=== PATIENT | male | born 1970 | race American Indian/Alaskan Native ===

== ENCOUNTER → 2016-11-10 | Outpatient (CLI) | payer MEDICAID ==
--- NOTE | 2016-11-10 10:45 | US ---
Sonography Limited to The Right Upper Quadrant of the Abdomen CLINICAL HISTORY: 46-year-old male with alcoholic cirrhosis. ICD 10 Diagnostic Code: K70.30. TECHNIQUE: A curvilinear 5 MHz transducer was used to sonographically evaluate the right upper quadra nt of the abdomen. Color Doppler was used. COMPARISON STUDY: Right upper quadrant abdominal sonography, dated November 26, 2014. FINDINGS: The pancreatic contour is normal. The abdominal aorta is normal in size and tapers normally . The visualized IVC is normal in caliber. The hepatic vein trifurcation is normal. The main portal v ein is patent. The liver is normal in size, measuring 15.30 cm along the right midaxillary line. The liver is notable for slightly coarsened echotexture with no discrete mass, and there is a slightly lo bulated contour consistent with the patient's prior history of cirrhosis. There is no intra or extrah epatic bile duct dilatation. The common bile duct measures 4.2 mm. The gallbladder is moderately dis tended, and there is no evidence of cholelithiasis, sludge, polyp, wall thickening, pericholecystic f luid, or sonographic Simms sign. The gallbladder wall thickness is 2.1 mm. The right kidney is ashley l in size, shape, and contour, with a normal renal cortical thickness, and no focal renal mass or hyd ronephrosis. It measures 11.9 x 5.9 x 5.3 cm. There is no ascites or right pleural effusion. IMPRESSION: 1. Coarsened heterogeneous hepatic echotexture with a mild contour lobulation, consistent with underl kailey cirrhosis. There is no focal hepatic mass, bile duct dilatation, or ascites. 2. Normal appearance of the gallbladder, with no cholecystitis or bile duct dilatation.
== END ==
LOC: FIMAGING 09:48
PROVIDERS: ATTEND Internal Medicine
DX: K70.30 Alcoholic cirrhosis of liver without ascites (principal)

== ENCOUNTER 2017-01-20 16:35 | Observation (INO) | payer MEDICAID ==
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
[2017-01-20] MEDS ORDERED: NS 1,000 ML IV ONE (17:01)
[2017-01-20] MEDS ORDERED: ONDANSETRON 4 MG/2 ML VIAL IVP ONE (17:05)
[2017-01-20 17:07] LABS: % IMMATURE GRANULYOCYTES 0.2 % (0.0-1.1); ABSOLUTE IMMATURE GRANULOCYTES 0.01 10^3/uL (0.00-0.10); ADD DIFF? NO; ADD MORPH? NO; ADD SCAN? NO; ATYPICAL LYMPHOCYTE FLAG 10 (0-99); FRAGMENT RBC FLAG 20 (0-99); HEMATOCRIT 37.4 % (40.0-51.0); HEMOGLOBIN 12.7 g/dL (13.7-17.5); LEFT SHIFT FLG 0 (0-99); LIPEMIA HEMOLYSIS FLAG 90 (0-99); MEAN CELL HEMOGLOBIN 28.1 pg (27.9-34.1); MEAN CELL VOLUME 82.7 fL (81.5-99.8); MEAN PLATELET VOLUME 10.7 fL (8.7-11.7); PLATELET CLUMPS FLAG 0 (0-99); PLATELET COUNT 111 10^3/uL (150-400); RED BLOOD CELL COUNT 4.52 10^6/uL (4.40-6.38); RED CELL DISTRIBUTION WIDTH 17.8 % (11.5-15.2)
[2017-01-20 17:17] LABS: INR 1.18 (0.83-1.16)
[2017-01-20 17:18] LABS: APTT 29.6 SEC (23.0-38.0)
[2017-01-20 17:29] LABS: ALANINE AMINOTRANSFERASE 39 IU/L (21-72); ALBUMIN 4.5 g/dL (3.5-5.0); ALKALINE PHOSPHATASE 168 IU/L (38-126); ANION GAP 20 mEq/L (8-16); ASPARTATE AMINOTRANSFERASE 97 IU/L (17-59); BILIRUBIN,TOTAL 1.7 mg/dL (0.1-1.4); BILIRUBIN-CONJUGATED 0.8 mg/dL (0.0-0.5); BILIRUBIN-UNCONJUGATED 0.9 mg/dL (0.0-1.1); CARBON DIOXIDE 22 mEq/l (22-31); CHLORIDE 103 mEq/L (97-110); CREATININE 0.9 mg/dL (0.7-1.3); GLOMERULAR FILTRATION RATE > 60; GLUCOSE 102 mg/dL (70-100); POTASSIUM 3.6 mEq/L (3.5-5.2); SODIUM 145 mEq/L (134-144)
[2017-01-20] MEDS ORDERED: IOPAMIDOL (ISOVUE-300) 100 ML BTL IV ONE (17:33)
[2017-01-20 17:55] LABS: ETHANOL SERUM 375 mg/dL (0-10)
[2017-01-20] MEDS ORDERED: ONDANSETRON 4 MG/2 ML VIAL IVP PRN (20:03)
[2017-01-20] MEDS ORDERED: BENZTROPINE MESYLATE 2 MG/2 ML INJ IM PRN (20:10)
[2017-01-20] MEDS ORDERED: diphenhydrAMINE 25 MG CAP PO PRN (20:10)
[2017-01-20] MEDS ORDERED: MAGNESIUM SULF 2 GM/WATER 50 ML IV ONE (20:10)
[2017-01-20] MEDS ORDERED: LORazepam 2 MG/ML INJ IVP PRN (20:10)
[2017-01-20] MEDS ORDERED: LORazepam 2 MG/ML INJ IVP ONE (20:10)
[2017-01-20] MEDS ORDERED: chlordiazePOXIDE 25 MG CAP PO ONE (20:10)
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
[2017-01-20] MEDS: LORazepam 2 MG/ML INJ IVP PRN ×2 (21:25→22:44)
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
[2017-01-20] MEDS: THIAMINE HCL 100 MG TAB PO SCH (22:06)
[2017-01-20] MEDS: MULTIVITAMINS 1 EACH TAB PO SCH (22:06)
[2017-01-20] MEDS: FOLIC ACID 1 MG TAB PO SCH (22:06)
[2017-01-20] MEDS ORDERED: oxyCODONE IR 5 MG TAB PO PRN (22:36)
[2017-01-20 22:42] LABS: BILIRUBIN,TOTAL 1.6 mg/dL (0.1-1.4); BILIRUBIN-CONJUGATED 0.8 mg/dL (0.0-0.5); BILIRUBIN-UNCONJUGATED 0.8 mg/dL (0.0-1.1); TOTAL PROTEIN 6.9 g/dL (6.3-8.2)
[2017-01-20] MEDS: LR 1,000 ML IV SCH (22:44)
[2017-01-20 22:45] LABS: INR 1.25 (0.83-1.16); PROTIME(PATIENT) 15.7 SEC (12.0-15.0)
[2017-01-20] MEDS ORDERED: PROTOCOL MAGNESIUM 1 DOSE IV PRN (23:28)
[2017-01-21] MEDS ORDERED: MAGNESIUM SULF 1 GM/DEXTROSE 100 ML BAG IV ONE
[2017-01-21] MEDS ORDERED: MAGNESIUM SULF 2 GM/WATER 50 ML BAG IV ONE (00:02)
[2017-01-21] MEDS: SPIRONOLACTONE 50 MG TAB PO SCH ×2 (00:06→08:13)
[2017-01-21] MEDS ORDERED: MAGNESIUM SULF 2 GM/WATER 50 ML IV ONE (00:26)
[2017-01-21 00:38] LABS: % IMMATURE GRANULYOCYTES 0.1 % (0.0-1.1); ABSOLUTE IMMATURE GRANULOCYTES 0.01 10^3/uL (0.00-0.10); ADD DIFF? NO; ADD MORPH? NO; ADD SCAN? NO; ATYPICAL LYMPHOCYTE FLAG 0 (0-99); FRAGMENT RBC FLAG 0 (0-99); HEMATOCRIT 33.2 % (40.0-51.0); LEFT SHIFT FLG 0 (0-99); LIPEMIA HEMOLYSIS FLAG 80 (0-99); MEAN CELL HEMOGLOBIN 27.8 pg (27.9-34.1); MEAN CELL HEMOGLOBIN CONCENTR. 33.1 g/dL (32.4-36.7); MEAN CELL VOLUME 83.8 fL (81.5-99.8); MEAN PLATELET VOLUME 11.1 fL (8.7-11.7); PLATELET CLUMPS FLAG 10 (0-99); PLATELET COUNT 97 10^3/uL (150-400); RED BLOOD CELL COUNT 3.96 10^6/uL (4.40-6.38); RED CELL DISTRIBUTION WIDTH 17.6 % (11.5-15.2)
[2017-01-21] MEDS: LORazepam 2 MG/ML INJ IVP PRN (02:13)
[2017-01-21 05:26] LABS: % IMMATURE GRANULYOCYTES 0.2 % (0.0-1.1); ABSOLUTE IMMATURE GRANULOCYTES 0.01 10^3/uL (0.00-0.10); ADD DIFF? NO; ADD MORPH? NO; ADD SCAN? NO; ATYPICAL LYMPHOCYTE FLAG 0 (0-99); FRAGMENT RBC FLAG 20 (0-99); HEMATOCRIT 33.2 % (40.0-51.0); HEMOGLOBIN 11.1 g/dL (13.7-17.5); LEFT SHIFT FLG 0 (0-99); LIPEMIA HEMOLYSIS FLAG 80 (0-99); MEAN CELL HEMOGLOBIN 27.6 pg (27.9-34.1); MEAN CELL HEMOGLOBIN CONCENTR. 33.4 g/dL (32.4-36.7); MEAN CELL VOLUME 82.6 fL (81.5-99.8); MEAN PLATELET VOLUME 10.1 fL (8.7-11.7); PLATELET CLUMPS FLAG 0 (0-99); PLATELET COUNT 96 10^3/uL (150-400); RED BLOOD CELL COUNT 4.02 10^6/uL (4.40-6.38); RED CELL DISTRIBUTION WIDTH 17.6 % (11.5-15.2)
[2017-01-21 05:38] LABS: AMYLASE 46 IU/L (30-110); ANION GAP 12 mEq/L (8-16); CALCIUM 7.9 mg/dL (8.5-10.4); CARBON DIOXIDE 26 mEq/l (22-31); CHLORIDE 107 mEq/L (97-110); CREATININE 0.9 mg/dL (0.7-1.3); ETHANOL SERUM 157 mg/dL (0-10); GLOMERULAR FILTRATION RATE > 60; GLUCOSE 76 mg/dL (70-100); MAGNESIUM 1.9 mg/dL (1.6-2.3); POTASSIUM 4.2 mEq/L (3.5-5.2); SODIUM 145 mEq/L (134-144)
[2017-01-21] MEDS: LR 1,000 ML IV SCH (06:19)
[2017-01-21] MEDS: MULTIVITAMINS 1 EACH TAB PO SCH (08:13)
[2017-01-21] MEDS: FOLIC ACID 1 MG TAB PO SCH (08:13)
[2017-01-21] MEDS: THIAMINE HCL 100 MG TAB PO SCH (08:13)
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
[2017-01-21] MEDS ORDERED: ENOXAPARIN 40 MG/0.4 ML SYR SC SCH (09:00)
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
[2017-01-21 09:35] LABS: PHENCYCLIDINE URINE BCH < 6 ng/ml (NEGATIVE); PHENCYCLIDINE URINE BCH NEGATIVE (NEGATIVE)
[2017-01-21 09:46] LABS: TETRAHYDROCANNABINOL URINE > 800 ng/mL (NEGATIVE)
[2017-01-21] MEDS: chlordiazePOXIDE 25 MG CAP PO PRN ×2 (11:04→16:40)
[2017-01-21 13:35] VITALS: RESP 18; TEMP 98
[2017-01-21] MEDS ORDERED: PALIPERIDONE 3 MG TAB.ER PO PRN (14:42)
[2017-01-21] MEDS ORDERED: NON-FORMULARY NEW DRUG (Fluoxetine Hcl [Fluoxetine Hcl] 40 MG) PO SCH (14:45)
[2017-01-21] MEDS ORDERED: PALIPERIDONE PALMITATE 234 MG/1.5 ML SYR IM SCH (15:00)
[2017-01-21] MEDS ORDERED: LEVOTHYROXINE 112 MCG TAB PO SCH (15:00)
[2017-01-21] MEDS ORDERED: BENZTROPINE MESYLATE 1 MG TAB PO SCH (15:00)
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
[2017-01-21 16:03] VITALS: BP 155/73; PULSE 104; O2SAT 98
[2017-01-21] MEDS ORDERED: AMOXICILLIN/CLAVULANATE POT 875/125 MG TAB PO SCH (21:00)
[2017-01-22] MEDS ORDERED: FLUoxetine 20 MG CAP PO SCH (09:00)
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
[2017-02-05] MEDS ORDERED: PALIPERIDONE PALMITATE 234 MG/1.5 ML SYR IM SCH (15:00)
== END 2017-01-21 16:56 | disposition home or self-care (01) ==
LOC: EDUNIT# → F2N 21:25
PROVIDERS: ADMIT Surgery; ATTEND Surgery
DX: S02.2XXA Fracture of nasal bones, initial encounter for closed fracture (principal); S02.81XA Fracture of other specified skull and facial bones, right side, initial encounter for closed fracture; Y04.8XXA Assault by other bodily force, initial encounter; F10.229 Alcohol dependence with intoxication, unspecified; Y90.8 Blood alcohol level of 240 mg/100 ml or more; K70.40 Alcoholic hepatic failure without coma; R33.9 Retention of urine, unspecified; F10.230 Alcohol dependence with withdrawal, uncomplicated; E03.9 Hypothyroidism, unspecified; M50.320 Other cervical disc degeneration, mid-cervical region, unspecified level; F43.10 Post-traumatic stress disorder, unspecified; F41.9 Anxiety disorder, unspecified; Z72.0 Tobacco use
CPT/HCPCS: 70450; 71260; 72125; 74177; 96361; 96374; 97161; 97165; 99285; G0378; 80307; G0480; J1650; J2060; J2405; J3475; Q9967

== ENCOUNTER 2017-02-03 13:47 | Emergency (ER) | payer MEDICAID ==
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
[2017-02-03 14:01] VITALS: RESP 16; TEMP 98.2
[2017-02-03 17:46] VITALS: BP 140/98; PULSE 101; O2SAT 96
== END 2017-02-03 17:48 | disposition home or self-care (01) ==
LOC: EDUNIT#
DX: F10.120 Alcohol abuse with intoxication, uncomplicated (principal); I10 Essential (primary) hypertension; F17.200 Nicotine dependence, unspecified, uncomplicated

== ENCOUNTER 2017-04-24 16:29 | Emergency (ER) | payer MEDICAID ==
[2017-04-24 16:34] VITALS: RESP 16
--- NOTE | 2017-04-24 16:45 | EDPHY ---
HPI/HX/ROS/PE/MDM Narrative: CHIEF COMPLAINT: Abdominal pain. HISTORY OF PRESENT ILLNESS: This patient is a 47 year old male complaining of abdominal pain worsening over the last week. He has history of liver cirrhosis and states that his current symptoms are similar to those he has experienced in the past. He states his liver is hurting. He endorses vomiting, diarrhea, chest pain, shortness of breath, subjective fever, and swelling in his legs, hands, and stomach. He states his urine has been very dark in color, describing it as resembling root beer. He does follow up with GI, and states he was last seen around three months ago. No chills, palpitations, headache, lightheadedness. REVIEW OF SYSTEMS: Aside from elements discussed in the HPI, a comprehensive 10-point review of systems was reviewed and is negative. PAST MEDICAL HISTORY: Liver cirrhosis secondary to alcoholism, Hepatitis A. Hypothyroidism (Levothyroxine), Kidney disease, Hypertension, Anxiety, PTSD, chronic right shoulder pain. Past medical records reviewed including admission and abdominal CT from . Levothyroxine, Prozac, Risperdal, Trazodone, Clonidine, Omeprazole, Ibuprofen SOCIAL HISTORY: Girlfriend and chemicals fermentation operator at bedside. Occasional cigarette use. PCP Renetta Coleman. GI Dr. Rowell. VITAL SIGNS: Reviewed by me GENERAL: Well-developed, seems tired. Resting comfortably in no respiratory distress. HEENT: Atraumatic. Eyes: Scleral icterus, no injection. Mouth: dry mucous membranes. No erythema or lesions. Neck: supple with no adenopathy. LUNGS: Clear to auscultation bilaterally, no wheezes, rhonchi or rales. CARDIAC: Regular rate and rhythm, no rubs, murmurs or gallops. ABDOMEN: Right upper, middle, and lower quadrant pain. No fluid wave. Soft, bowel sounds normal. BACK: Right CVA tenderness. EXTREMITIES: No trauma. No edema. Range of motion is normal throughout. NEURO: Alert and oriented, grossly nonfocal. SKIN: No spider hemangioma. Warm and dry, no rash. PSYCHIATRIC: Normal mentation, no agitation. Portions of this note were transcribed by a certified medical aide. I personally performed a history, physical exam, medical decision making, and confirmed accuracy of information the transcribed note. ED Course: This patient is a 47 year old male presenting with an acute exacerbation of his chronic liver cirrhosis. Physical exam reveals right upper, middle, and lower quadrant pain, and right CVA tenderness. No abdominal fluid wave. Scleral icterus. Plan for labs including CBC, BMP, PTPTT, Liver/Lipase, Ammonia. Plan for CT abdomen to assess for acute processes. Spoke with Dr. Angeles, radiologist. CT shows cirrhosis and fatty infiltrate of liver and distended gallbladder. No ascites or bowel obstruction. Plan for further labs including CPK and UA. Labs demonstrate some worsening of the patient's cirrhosis. Bilirubin is 3.5. No ascites. Feel patient is safe to be discharged with lactulose. On discussions with the patient he reports that he has taken this before and he does not like it and he wishes to be admitted to the hospital. I explained to him that the treatment in the hospital be lactulose. He reports significant anxiety. Patient received 1 mg p.o. of Ativan and is agreeable to begin taking lactulose. He will follow up with his primary care physician [facility]. Plan to discharge home in good condition with a prescription for lactulose. Return preclusions discussed. He has been instructed to follow up with his primary care physician this week for continued management of symptoms. The patient is comfortable with this plan. MDM: Differential diagnoses for the patient's symptom complex was considered including but not limited to cirrhosis, gallstone disease, pancreatitis, ascites , SBP, acute liver failure, hepatic encephalopathy. - Data Points Imaging Results: Imaging Impressions Abdomen/Pelvis CT 04/24/17 17:29 Impression: 1. No ascites or bowel obstruction. 2. Cirrhosis/fatty infiltration with mild increase in liver size since January 20 , but smaller than 2013. 3. Distended gallbladder. 4. Chronic bladder wall nodularity in the region of the urachus. Results discussed with Dr. Ann Cabezas. General information for patients regarding this examination can be found at [email or web address]. If you have questions or comments about this report, please contact me at (hospital) or [phone] (cell). Imaging: Discussed imaging studies w/ house calls nurse practitioner Radiologist Laboratory Results: Laboratory Results 04/24/17 16:43 04/24/17 16:43 04/24/17 04/24/17 04/24/17 18:40 16:43 16:43 WBC RBC Hgb Hct MCV MCH MCHC RDW Plt Count MPV Neut % (Auto) Lymph % (Auto) Millard % (Auto) Eos % (Auto) Baso % (Auto) Nucleat RBC Rel Count Absolute Neuts (auto) Absolute Lymphs (auto) Absolute Monos (auto) Absolute Eos (auto) Absolute Basos (auto) Absolute Nucleated RBC Immature Gran % Immature Gran # Platelet Estimate Polychromasia Hypochromasia Target Cells Elliptocytes Schistocytes PT INR APTT Sodium 145 mEq/L H mEq/L (134-144) Potassium 3.6 mEq/L mEq/L (3.5-5.2) Chloride 103 mEq/L mEq/L (97-110) Carbon Dioxide 22 mEq/l mEq/l (22-31) Anion Gap 20 mEq/L H mEq/L (8-16) BUN 4 mg/dL L mg/dL (7-23) Creatinine 1.0 mg/dL mg/dL (0.7-1.3) Estimated GFR > 60 Glucose 107 mg/dL H mg/dL (70-100) Calcium 9.4 mg/dL mg/dL (8.5-10.4) Total Bilirubin 3.5 mg/dL H mg/dL (0.1-1.4) Conjugated Bilirubin 2.0 mg/dL H mg/dL (0.0-0.5) Unconjugated Bilirubin 1.5 mg/dL H mg/dL (0.0-1.1) AST 263 IU/L H IU/L (17-59) ALT 89 IU/L H IU/L (21-72) Alkaline Phosphatase 306 IU/L H IU/L (38-126) Ammonia Creatine Kinase 472 IU/L H IU/L (0-224) CK-MB (CK-2) Fraction 1.46 ng/mL ng/mL (0-3.19) CK-MB (CK-2) % 0.3 % % (0.0-4.0) Creatine Kinase Interp NEGATIVE (NEGATIVE) Total Protein 8.8 g/dL H g/dL (6.3-8.2) Albumin 4.5 g/dL g/dL (3.5-5.0) Lipase 316.0 IU/L H IU/L (23-300) Urine Color YELLOW Urine Appearance CLEAR Urine pH 7.0 (5.0-7.5) Ur Specific [place] 1.006 (1.002-1.030) Urine Protein NEGATIVE (NEGATIVE) Urine Ketones NEGATIVE (NEGATIVE) Urine Blood 1+ H (NEGATIVE) Urine Nitrate NEGATIVE (NEGATIVE) Urine Bilirubin NEGATIVE (NEGATIVE) Urine Urobilinogen 4.0 EU H EU (0.2-1.0) Ur Leukocyte Esterase NEGATIVE (NEGATIVE) Urine RBC 1-3 /hpf /hpf (0-3) Urine WBC 1-3 /hpf /hpf (0-3) Ur Epithelial Cells NONE SEEN /lpf /lpf (NONE-1+) Urine Mucus TRACE /lpf /lpf (NONE-1+) Urine Glucose NEGATIVE (NEGATIVE) 04/24/17 04/24/17 04/24/17 16:43 16:43 16:43 WBC 8.68 10^3/uL 10^3/uL (3.80-9.50) RBC 4.35 10^6/uL L 10^6/uL (4.40-6.38) Hgb 12.1 g/dL L g/dL (13.7-17.5) Hct 35.9 % L % (40.0-51.0) MCV 82.5 fL fL (81.5-99.8) MCH 27.8 pg L pg (27.9-34.1) MCHC 33.7 g/dL g/dL (32.4-36.7) RDW 23.1 % H % (11.5-15.2) Plt Count 115 10^3/uL L 10^3/uL (150-400) MPV 10.9 fL fL (8.7-11.7) Neut % (Auto) 66.8 % % (39.3-74.2) Lymph % (Auto) 18.5 % % (15.0-45.0) Millard % (Auto) 13.2 % H % (4.5-13.0) Eos % (Auto) 0.6 % % (0.6-7.6) Baso % (Auto) 0.6 % % (0.3-1.7) Nucleat RBC Rel Count 0.0 % % (0.0-0.2) Absolute Neuts (auto) 5.79 10^3/uL 10^3/uL (1.70-6.50) Absolute Lymphs (auto) 1.61 10^3/uL 10^3/uL (1.00-3.00) Absolute Monos (auto) 1.15 10^3/uL H 10^3/uL (0.30-0.80) Absolute Eos (auto) 0.05 10^3/uL 10^3/uL (0.03-0.40) Absolute Basos (auto) 0.05 10^3/uL 10^3/uL (0.02-0.10) Absolute Nucleated RBC 0.00 10^3/uL 10^3/uL (0-0.01) Immature Gran % 0.3 % % (0.0-1.1) Immature Gran # 0.03 10^3/uL 10^3/uL (0.00-0.10) Platelet Estimate DECREASED L (ADEQ) Polychromasia 1+ H Hypochromasia 1+ H Target Cells 1+ H Elliptocytes 1+ H Schistocytes 1+ H PT 14.1 SEC SEC (12.0-15.0) INR 1.10 (0.83-1.16) APTT 29.9 SEC SEC (23.0-38.0) Sodium Potassium Chloride Carbon Dioxide Anion Gap BUN Creatinine Estimated GFR Glucose Calcium Total Bilirubin Conjugated Bilirubin Unconjugated Bilirubin AST ALT Alkaline Phosphatase Ammonia 33.0 uMOL/L H uMOL/L (9.0-30.0) Creatine Kinase CK-MB (CK-2) Fraction CK-MB (CK-2) % Creatine Kinase Interp Total Protein Albumin Lipase Urine Color Urine Appearance Urine pH Ur Specific [place] Urine Protein Urine Ketones Urine Blood Urine Nitrate Urine Bilirubin Urine Urobilinogen Ur Leukocyte Esterase Urine RBC Urine WBC Ur Epithelial Cells Urine Mucus Urine Glucose Medications Given: Discontinued Medications Sodium Chloride (Ns) 1,000 mls @ 0 mls/hr IV ONCE ONE; Wide Open PRN Reason: Protocol Stop: 04/24/17 16:58 Last Admin: 04/24/17 17:03 Dose: 1,000 mls Sodium Chloride (Ns) 1,000 mls @ 0 mls/hr IV ONCE ONE; Wide Open PRN Reason: Protocol Stop: 04/24/17 18:42 Last Admin: 04/24/17 18:51 Dose: 1,000 mls Lorazepam (Ativan) 1 mg PO EDNOW ONE Stop: 04/24/17 19:31 Last Admin: 04/24/17 19:33 Dose: 1 mg General Time Seen by Provider: 04/24/17 16:38 Initial Vital Signs: Initial Vital Signs Temperature (C) 36.7 C 04/24/17 16:30 Heart Rate 121 H 04/24/17 16:30 Respiratory Rate 16 04/24/17 16:30 Blood Pressure 152/109 H 04/24/17 16:30 O2 Sat (%) 91 L 04/24/17 16:30 O2 Delivery Mode Room Air O2 (L/minute) 2 Allergies/Adverse Reactions: No Known Allergies Allergy (Verified 09/19/16 09:48) Home Medications: Medication Instructions Recorded FLUoxetine HCL [Fluoxetine HCl] 40 mg PO DAILY 01/20/17 traZODone [traZODone 150MG (*)] 150 - 300 mg PO HS PRN 01/20/17 Amoxicillin/Clavulanate Pot 875 mg PO BID #0 tab 01/21/17 [Augmentin 875 MG TAB (*)] Benztropine Mesylate [Cogentin] 0.5 mg PO BID #0 tab 01/21/17 Ibuprofen 600 mg PO BID 01/21/17 Levothyroxine [Synthroid 112 mcg 112 mcg PO DAILY06 01/21/17 (*)] Paliperidone Palmitate [Invega 234 mg IM .QMONTH 01/21/17 Sustenna (*)] Paliperidone [Invega 3mg ER (*)] 9 mg PO DAILY PRN #0 tab.er 01/21/17 clonIDINE [Catapres (*)] 0.1 mg PO TID 01/21/17 oxyCODONE IR [Oxycodone Ir (*)] 5 mg PO Q4HRS PRN #45 tab 01/21/17 Lactulose 15 - 30 ml PO TID 20 Days 04/24/17 Departure - Departure Disposition: Home, Routine, Self-Care Clinical Impression: Cirrhosis of liver Qualifiers: Hepatic cirrhosis type: alcoholic cirrhosis Ascites presence: without ascites Qualified Code(s): K70.30 - Alcoholic cirrhosis of liver without ascites Abdominal pain Qualifiers: Abdominal location: right lower quadrant Qualified Code(s): R10.31 - Right lower quadrant pain Condition: Good Instructions: Lactulose (By mouth), Cirrhosis (ED) Additional Instructions: We are going to start a medication called lactulose. The dose is 15-30 mL. Please take 15 mL in the morning. You should have several bowel movements. If you do not, take another 15 mL. Each day you will take 15-30 mL depending on your response. Please follow up with your primary care physician by the end of this week for re -evaluation. Return to the emergency department if you develop fever, worsening pain or swelling despite this new medicine, vomiting, or vomiting blood. Referrals: Renetta Coleman PA [Primary Care Provider] - As per Instructions Prescriptions: Lactulose 15 - 30 ml PO TID 20 Days Report Scribed for: Ann Cabezas Report Scribed by: Chanelle Keller Date of Report: 04/24/17 Time of Report: 16:43
[2017-04-24] MEDS ORDERED: NS 1,000 ML IV ONE ×2 (16:57→18:41)
[2017-04-24 17:11] LABS: % IMMATURE GRANULYOCYTES 0.3 % (0.0-1.1); ABSOLUTE IMMATURE GRANULOCYTES 0.03 10^3/uL (0.00-0.10); ADD DIFF? NO; ADD MORPH? YES; ADD SCAN? NO; ATYPICAL LYMPHOCYTE FLAG 0 (0-99); FRAGMENT RBC FLAG 40 (0-99); HEMATOCRIT 35.9 % (40.0-51.0); HEMOGLOBIN 12.1 g/dL (13.7-17.5); LEFT SHIFT FLG 0 (0-99); LIPEMIA HEMOLYSIS FLAG 80 (0-99); MEAN CELL HEMOGLOBIN 27.8 pg (27.9-34.1); MEAN CELL HEMOGLOBIN CONCENTR. 33.7 g/dL (32.4-36.7); MEAN CELL VOLUME 82.5 fL (81.5-99.8); MEAN PLATELET VOLUME 10.9 fL (8.7-11.7); PLATELET CLUMPS FLAG 20 (0-99); PLATELET COUNT 115 10^3/uL (150-400); RED BLOOD CELL COUNT 4.35 10^6/uL (4.40-6.38)
[2017-04-24 17:13] LABS: ALANINE AMINOTRANSFERASE 89 IU/L (21-72); ALBUMIN 4.5 g/dL (3.5-5.0); ALKALINE PHOSPHATASE 306 IU/L (38-126); ANION GAP 20 mEq/L (8-16); ASPARTATE AMINOTRANSFERASE 263 IU/L (17-59); BILIRUBIN,TOTAL 3.5 mg/dL (0.1-1.4); BILIRUBIN-UNCONJUGATED 1.5 mg/dL (0.0-1.1); CALCIUM 9.4 mg/dL (8.5-10.4); CARBON DIOXIDE 22 mEq/l (22-31); CHLORIDE 103 mEq/L (97-110); GLOMERULAR FILTRATION RATE > 60; GLUCOSE 107 mg/dL (70-100); POTASSIUM 3.6 mEq/L (3.5-5.2); SODIUM 145 mEq/L (134-144); TOTAL PROTEIN 8.8 g/dL (6.3-8.2)
[2017-04-24 17:14] LABS: RED CELL DISTRIBUTION WIDTH 23.1 % (11.5-15.2)
[2017-04-24 17:21] LABS: INR 1.1 (0.83-1.16); PROTIME(PATIENT) 14.1 SEC (12.0-15.0)
[2017-04-24 17:22] LABS: APTT 29.9 SEC (23.0-38.0)
[2017-04-24 17:56] LABS: HYPOCHROMIA 1+; PLATELET ESTIMATE DECREASED (ADEQ); SCHISTOCYTES 1+; TARGET CELLS 1+
[2017-04-24 17:57] LABS: ELLIPTOCYTES 1+
[2017-04-24 17:58] LABS: POLYCHROMASIA 1+
[2017-04-24 19:09] LABS: COLOR YELLOW; LEUKOCYTE ESTERASE,URINE NEGATIVE (NEGATIVE); NITRITE,URINE NEGATIVE (NEGATIVE)
[2017-04-24 19:15] LABS: MUCUS TRACE /lpf (NONE-1+)
[2017-04-24 19:22] LABS: CK-MB INTERPRETATION NEGATIVE (NEGATIVE); CREATINE KINASE-MB FRACTION 1.46 ng/mL (0-3.19)
[2017-04-24] MEDS ORDERED: LORazepam 1 MG TAB PO ONE (19:30)
[2017-04-24 19:41] VITALS: BP 155/107; PULSE 109; TEMP 98.2; O2SAT 91
== END 2017-04-24 19:44 | disposition home or self-care (01) ==
DX: R10.31 Right lower quadrant pain (principal); K70.30 Alcoholic cirrhosis of liver without ascites; E86.9 Volume depletion, unspecified; I10 Essential (primary) hypertension; F17.210 Nicotine dependence, cigarettes, uncomplicated

== ENCOUNTER 2017-05-18 20:59 | Emergency (ER) | payer MEDICAID ==
--- NOTE | 2017-05-18 21:10 | EDPHY ---
H & P Time Seen by Provider: 05/18/17 20:59 HPI/ROS: CHIEF COMPLAINT: Alcohol intoxication, witnessed fall HISTORY OF PRESENT ILLNESS: 47-year-old male presents to the emergency department by ambulance after he had a witnessed fall at a homeless care home. The patient admits to drinking a large amount of alcohol today. Apparently he tripped going up the curb and fell. He did not lose consciousness. The patient admits to drinking alcohol today. Denies neck or back pain. Denies chest pain or difficulty breathing. He has chronic abdominal pain associated with cirrhosis. No vomiting. No other reported trauma. REVIEW OF SYSTEMS: Constitutional: No fever, no chills. Eyes: No double or blurry vision. ENT: No sore throat. Respiratory: No cough, no shortness of breath. Cardiac: No chest pain. Gastrointestinal: No abdominal pain, vomiting or diarrhea. Genitourinary: No dysuria. Musculoskeletal: No neck or back pain. Skin: Abrasions. No rashes. Neurological: No headache. Past Medical/Surgical History: Alcoholism, cirrhosis, hypertension, sleep apnea, hypothyroidism, kidney disease Social History: homeless Smoking Status: Current every day smoker Physical Exam: General Appearance: lethargic, no distress. Smells of alcohol. Eyes: Pupils equal and round. Extraocular motions are all intact. ENT: Mouth: Mucous membranes moist. Superficial abrasion anterior aspect of nose. No epistaxis. Respiratory: No wheezing, rhonchi, or rales, lungs are clear to auscultation. Cardiovascular: Regular rate and rhythm. Gastrointestinal: Abdomen is soft and nontender, no masses, no rebound or guarding, bowel sounds normal. Neurological: Alert and oriented x 3, cranial nerves II through XII grossly intact Skin: Nose abrasion as above. Superficial chin abrasion. Warm and dry, no rashes. Musculoskeletal: Nontender to palpate along the cervical, thoracic or lumbar spine. Neck is supple. Extremities: Full range of motion and no peripheral edema. Psychiatric: Patient is oriented X 3, there is no agitation. Constitutional: Initial Vital Signs Temperature (C) 36.6 C 05/18/17 21:10 Heart Rate 100 05/18/17 21:10 Respiratory Rate 16 05/18/17 21:10 Blood Pressure 125/84 H 05/18/17 21:10 O2 Sat (%) 92 05/18/17 21:10 O2 Delivery Mode Nasal Cannula O2 (L/minute) 3 Allergies/Adverse Reactions: No Known Allergies Allergy (Verified 05/18/17 21:09) Home Medications: Medication Instructions Recorded FLUoxetine HCL [Fluoxetine HCl] 40 mg PO DAILY 01/20/17 traZODone [traZODone 150MG (*)] 150 - 300 mg PO HS PRN 01/20/17 Amoxicillin/Clavulanate Pot 875 mg PO BID #0 tab 01/21/17 [Augmentin 875 MG TAB (*)] Benztropine Mesylate [Cogentin] 0.5 mg PO BID #0 tab 01/21/17 Ibuprofen 600 mg PO BID 01/21/17 Levothyroxine [Synthroid 112 mcg 112 mcg PO DAILY06 01/21/17 (*)] Paliperidone Palmitate [Invega 234 mg IM .QMONTH 01/21/17 Sustenna (*)] Paliperidone [Invega 3mg ER (*)] 9 mg PO DAILY PRN #0 tab.er 01/21/17 clonIDINE [Catapres (*)] 0.1 mg PO TID 01/21/17 oxyCODONE IR [Oxycodone Ir (*)] 5 mg PO Q4HRS PRN #45 tab 01/21/17 Lactulose 15 - 30 ml PO TID 20 Days 04/24/17 Medical Decision Making ED Course/Re-evaluation: 47-year-old male presents to the emergency department with alcohol intoxication. I do not think imaging of his head is necessary. He did have a superficial abrasion to the anterior aspect of his nose as well as an old abrasion to his chin. Patient had no other signs of trauma. He is mentating normally. He smells strongly of alcohol. ETOH breath of 266. At 11:50 p.m.: The patient was able to ambulate unassisted to the bathroom. He will be discharged to the [facility]. Differential Diagnosis: Altered mental status including but not limited to hypoglycemia, infectious process, electrolyte abnormality, head injury and intoxicants. Departure - Departure Disposition: Home, Routine, Self-Care Clinical Impression: Alcohol abuse, Abrasion, nose w/o infection Alcohol intoxication Qualifiers: Complication of substance-induced condition: uncomplicated Qualified Code(s): F10.920 - Alcohol use, unspecified with intoxication, uncomplicated Fall Qualifiers: Encounter type: initial encounter Qualified Code(s): W19.XXXA - Unspecified fall, initial encounter Condition: Good Instructions: Alcohol Intoxication (ED), Abrasion (ED), Acute Wounds (ED) Additional Instructions: You should not drink alcohol in excess. Referrals: [facility] [Outside] - As per Instructions
[2017-05-18 21:14] VITALS: RESP 16; TEMP 97.9
[2017-05-19 00:16] VITALS: BP 122/82; PULSE 90; O2SAT 93
== END 2017-05-19 00:14 | disposition home or self-care (01) ==
LOC: EDUNIT#
DX: S00.31XA Abrasion of nose, initial encounter (principal); F10.120 Alcohol abuse with intoxication, uncomplicated; I10 Essential (primary) hypertension; F17.200 Nicotine dependence, unspecified, uncomplicated; W01.0XXA Fall on same level from slipping, tripping and stumbling without subsequent striking against object, initial encounter

== ENCOUNTER 2017-05-26 21:27 | Emergency (ER) | payer MEDICAID ==
[2017-05-26 21:59] VITALS: PULSE 81; RESP 16; TEMP 97.9
--- NOTE | 2017-05-26 22:01 | EDPHY ---
H & P Stated Complaint: Fall-EtOH Time Seen by Provider: 05/26/17 21:55 HPI/ROS: CHIEF COMPLAINT: Intoxication and fall HISTORY OF PRESENT ILLNESS: Patient is a 47-year-old alcoholic man who is been drinking today and fell. He has a small laceration to his chin. He is somnolecent but arousable. He denies other injuries. He denies headache or neck pain. REVIEW OF SYSTEMS: Unable to obtain secondary to condition EXAM: GENERAL: Well-appearing, well-nourished and in no acute distress. HEAD: Atraumatic, normocephalic. EYES: Pupils equal round and reactive to light, extraocular movements intact, sclera anicteric, conjunctiva are normal. ENT: TMs normal, nares patent, oropharynx clear without exudates. Moist mucous membranes. No mandible tenderness, open and close his jaw without difficulty. NECK: Normal range of motion, supple without lymphadenopathy or JVD. LUNGS: Breath sounds clear to auscultation bilaterally and equal. No wheezes rales or rhonchi. HEART: Regular rate and rhythm without murmurs, rubs or gallops. ABDOMEN: Soft, nontender, normoactive bowel sounds. No guarding, no rebound. No masses appreciated. BACK: No CVA tenderness, no spinal tenderness, step-offs or deformities EXTREMITIES: Normal range of motion, no pitting or edema. No clubbing or cyanosis. NEUROLOGICAL: Cranial nerves II through XII grossly intact. Normal speech, normal gait. 5/5 strength, normal movement in all extremities, normal sensation PSYCH: Normal mood, normal affect. SKIN: 1 cm laceration to chin. Source: Patient Exam Limitations: No limitations - Personal History Current Tetanus Diphtheria and Acellular Pertussis (TDAP): Yes Tetanus Vaccine Date: 2014 - Medical/Surgical History Hx Asthma: No Hx Chronic Respiratory Disease: No Hx Diabetes: No Hx Cardiac Disease: No Hx Renal Disease: Yes Hx Cirrhosis: Yes Hx Alcoholism: Yes Hx HIV/AIDS: No Hx Splenectomy or Spleen Trauma: No Other PMH: anxiety, ptsd, htn, Liver failure, alcoholism, sleep apnea, hypothyroidism, kidney disease, R chronic shoulder pain, claustrophobia. - Family History Significant Family History: No pertinent family hx - Social History Smoking Status: Current every day smoker Alcohol Use: Heavy Drug Use: Marijuana Constitutional: Initial Vital Signs Temperature (C) 36.6 C 08/03/17 21:54 Heart Rate 81 05/26/17 21:54 Respiratory Rate 16 05/26/17 21:54 Blood Pressure 133/74 H 05/26/17 21:54 O2 Sat (%) 91 L 05/26/17 21:54 O2 Delivery Mode Room Air Allergies/Adverse Reactions: No Known Allergies Allergy (Verified 05/26/17 21:53) Home Medications: Medication Instructions Recorded FLUoxetine HCL [Fluoxetine HCl] 40 mg PO DAILY 01/20/17 traZODone [traZODone 150MG (*)] 150 - 300 mg PO HS PRN 01/20/17 Amoxicillin/Clavulanate Pot 875 mg PO BID #0 tab 01/21/17 [Augmentin 875 MG TAB (*)] Benztropine Mesylate [Cogentin] 0.5 mg PO BID #0 tab 01/21/17 Ibuprofen 600 mg PO BID 01/21/17 Levothyroxine [Synthroid 112 mcg 112 mcg PO DAILY06 01/21/17 (*)] Paliperidone Palmitate [Invega 234 mg IM .QMONTH 01/21/17 Sustenna (*)] Paliperidone [Invega 3mg ER (*)] 9 mg PO DAILY PRN #0 tab.er 01/21/17 clonIDINE [Catapres (*)] 0.1 mg PO TID 01/21/17 oxyCODONE IR [Oxycodone Ir (*)] 5 mg PO Q4HRS PRN #45 tab 01/21/17 Lactulose 15 - 30 ml PO TID 20 Days 04/24/17 Medical Decision Making - Diagnostics Imaging: Discussed imaging studies w/ manager highway Radiologist Procedures: Procedure: Laceration repair. Verbal consent was obtained from the patient. The 1 cm chin laceration was not anesthetize. The wound was irrigated copiously according to protocol, draped and explored to its base. It was approximately 1/2 cm deep. There were no deep structures involved. No tendon, nerve, or vascular injury was identified when explored. No foreign body was identified. The wound was repaired with 4.0 PDS, 2 sutures, interrupted. The wound repair was simple. The procedure was performed by myself. A dressing was then placed with sterile gauze and bacitracin. ED Course/Re-evaluation: 11:20 p.m. The patient is alert and talking. We discussed the CT results. His and he would like him to [facility] the [facility] with [facility]. I will discharge him at this time. Differential Diagnosis: Partial list of the Differential diagnosis considered include but were not limited to; intoxication, head injury, laceration, mandible fracture and although unlikely based on the history and physical exam, I also considered neck injury, infection, acute coronary disease, seizure. I discussed these differential diagnoses and the plan with the patient as well as the usual and expected course. The patient understands that the diagnosis is provisional and that in medicine we are not always correct and that further workup is often warranted. Usual and customary warnings were given. All of the patient's questions were answered. The patient was instructed to return to the emergency department should the symptoms at all worsen or return, otherwise to followup with the physician as we discussed. Departure - Departure Disposition: Home, Routine, Self-Care Clinical Impression: Alcohol abuse, Laceration Condition: Fair Instructions: Alcohol Intoxication (ED), Laceration (ED) Additional Instructions: Have your sutures removed in 10 days. You have 2 in you chin Referrals: Patient,NotPresent [Unknown] - As per Instructions [facility],. [Clinic] - As per Instructions
[2017-05-26] MEDS ORDERED: CHLORDIAZEPOXIDE 25MG PREPK#6 BTL TAKEHOME ONE (23:28)
[2017-05-27 00:05] VITALS: BP 146/74; O2SAT 92
== END 2017-05-27 00:05 | disposition home or self-care (01) ==
LOC: EDUNIT#
PROC: 0HQ1XZZ Repair Face Skin, External Approach (ICD-10-PCS; principal; 2017-05-26)
DX: S01.81XA Laceration without foreign body of other part of head, initial encounter (principal); F10.10 Alcohol abuse, uncomplicated; F17.200 Nicotine dependence, unspecified, uncomplicated; I10 Essential (primary) hypertension; W19.XXXA Unspecified fall, initial encounter

== ENCOUNTER 2017-06-08 11:53 | Emergency (ER) | payer MEDICAID ==
[2017-06-08 12:26] VITALS: BP 126/82; PULSE 92; RESP 16; TEMP 97.3; O2SAT 93
--- NOTE | 2017-06-08 13:21 | EDPHY ---
H & P Stated Complaint: Pt is drunk;says "I have cirrhosis" Time Seen by Provider: 06/08/17 13:14 HPI/ROS: CHIEF COMPLAINT: Alcohol intoxication HISTORY OF PRESENT ILLNESS: The patient presents to the ED with acute alcohol intoxication. The patient denies any history of trauma. The patient reports he has a chronic daily drinker. The patient denies any suicidal or homicidal ideation. Patient denies any acute medical complaints. He does report a history of cirrhosis secondary to his chronic alcohol consumption. The patient denies any history of fever, cough or congestion. REVIEW OF SYSTEMS: A comprehensive 10 point review of systems is otherwise negative aside from elements mentioned in the history of present illness. Source: Patient Exam Limitations: No limitations - Personal History Current Tetanus Diphtheria and Acellular Pertussis (TDAP): Yes Tetanus Vaccine Date: 2014 - Medical/Surgical History Hx Asthma: No Hx Chronic Respiratory Disease: No Hx Diabetes: No Hx Cardiac Disease: No Hx Renal Disease: Yes Hx Cirrhosis: Yes Hx Alcoholism: Yes Hx HIV/AIDS: No Hx Splenectomy or Spleen Trauma: No Other PMH: anxiety, ptsd, htn, Liver failure, alcoholism, sleep apnea, hypothyroidism, kidney disease, R chronic shoulder pain, claustrophobia. - Social History Smoking Status: Current every day smoker - Physical Exam Exam: General Appearance: Alert, alcohol on breath, no acute distress Eyes: Pupils equal and round no pallor or injection ENT, Mouth: Mucous membranes moist Respiratory: There are no retractions, lungs are clear to auscultation Cardiovascular: Regular rate and rhythm Gastrointestinal: Protuberant, nontender Neurological: A&O, normal motor function, normal sensory exam, normal cranial nerves Skin: Warm and dry, no rashes Musculoskeletal: Neck is supple nontender Extremities: symmetrical, full range of motion Psychiatric: Patient is oriented X 3, there is no agitation Constitutional: Initial Vital Signs Temperature (C) 36.3 C 06/08/17 12:15 Heart Rate 92 06/08/17 12:15 Respiratory Rate 16 06/08/17 12:15 Blood Pressure 126/82 H 06/08/17 12:15 O2 Sat (%) 93 06/08/17 12:15 O2 Delivery Mode Room Air Allergies/Adverse Reactions: No Known Allergies Allergy (Verified 06/08/17 12:24) Home Medications: Medication Instructions Recorded FLUoxetine HCL [Fluoxetine HCl] 40 mg PO DAILY 01/20/17 traZODone [traZODone 150MG (*)] 150 - 300 mg PO HS PRN 01/20/17 Amoxicillin/Clavulanate Pot 875 mg PO BID #0 tab 01/21/17 [Augmentin 875 MG TAB (*)] Benztropine Mesylate [Cogentin] 0.5 mg PO BID #0 tab 01/21/17 Ibuprofen 600 mg PO BID 01/21/17 Levothyroxine [Synthroid 112 mcg 112 mcg PO DAILY06 01/21/17 (*)] Paliperidone Palmitate [Invega 234 mg IM .QMONTH 01/21/17 Sustenna (*)] Paliperidone [Invega 3mg ER (*)] 9 mg PO DAILY PRN #0 tab.er 01/21/17 clonIDINE [Catapres (*)] 0.1 mg PO TID 01/21/17 oxyCODONE IR [Oxycodone Ir (*)] 5 mg PO Q4HRS PRN #45 tab 01/21/17 Lactulose 15 - 30 ml PO TID 20 Days 04/24/17 Medical Decision Making ED Course/Re-evaluation: I reviewed the patient's past medical records. The patient presents to the ED only with alcohol intoxication. There is no evidence of obvious traumatic injury. The patient has stable vital signs. The patient is neurologically intact. I do feel the patient can be discharged to the [facility] for further [facility]. Differential Diagnosis: Differential diagnosis considered includes alcohol intoxication, metabolic abnormality, alcohol withdrawal syndrome Departure - Departure Disposition: Home, Routine, Self-Care Clinical Impression: Alcohol intoxication Condition: Good Instructions: Alcohol Intoxication (ED) Additional Instructions: 1. Please follow up with the [facility] for further assistance with your alcohol dependence. Continued use of heavy alcohol puts you at risk for serious illness and . Referrals: Renetta Coleman PA [Primary Care Provider] - As per Instructions
[2017-06-08] MEDS ORDERED: CHLORDIAZEPOXIDE 25MG PREPK#6 BTL TAKEHOME ONE (13:38)
== END 2017-06-08 14:12 | disposition home or self-care (01) ==
DX: F10.129 Alcohol abuse with intoxication, unspecified (principal); I10 Essential (primary) hypertension; F17.200 Nicotine dependence, unspecified, uncomplicated

== ENCOUNTER 2017-06-12 15:14 | Inpatient (IN) | payer MEDICAID ==
[2017-06-12] MEDS ORDERED: NS 1,000 ML IV ONE ×4 (15:20→18:00)
[2017-06-12 15:40] LABS: % IMMATURE GRANULYOCYTES 0.3 % (0.0-1.1); ABSOLUTE IMMATURE GRANULOCYTES 0.04 10^3/uL (0.00-0.10); ADD DIFF? NO; ADD MORPH? YES; ADD SCAN? NO; ATYPICAL LYMPHOCYTE FLAG 0 (0-99); FRAGMENT RBC FLAG 20 (0-99); HEMATOCRIT 32.2 % (40.0-51.0); HEMOGLOBIN 11.6 g/dL (13.7-17.5); LEFT SHIFT FLG 0 (0-99); LIPEMIA HEMOLYSIS FLAG 90 (0-99); MEAN CELL HEMOGLOBIN 31.2 pg (27.9-34.1); MEAN CELL VOLUME 86.6 fL (81.5-99.8); MEAN PLATELET VOLUME 10.4 fL (8.7-11.7); PLATELET CLUMPS FLAG 20 (0-99); PLATELET COUNT 68 10^3/uL (150-400); RED BLOOD CELL COUNT 3.72 10^6/uL (4.40-6.38)
--- NOTE | 2017-06-12 15:42 | EDPHY ---
H & P Stated Complaint: ETOH Source: Patient, EMS Exam Limitations: Intoxication - Personal History Tetanus Vaccine Date: 2014 - Medical/Surgical History Hx Asthma: No Hx Chronic Respiratory Disease: No Hx Diabetes: No Hx Cardiac Disease: No Hx Renal Disease: Yes Hx Cirrhosis: Yes Hx Alcoholism: Yes Hx HIV/AIDS: No Hx Splenectomy or Spleen Trauma: No Other PMH: anxiety, ptsd, htn, Liver failure, alcoholism, sleep apnea, hypothyroidism, kidney disease, R chronic shoulder pain, claustrophobia. - Social History Smoking Status: Current every day smoker Alcohol Use: Heavy Time Seen by Provider: 06/12/17 15:19 HPI/ROS: CHIEF COMPLAINT: ETOH HISTORY OF PRESENT ILLNESS: 47-year-old male presents to the emergency department by ambulance after bystanders called 911 finding him unresponsive. Patient was aroused. He reports he drink a half a gallon of alcohol today. Pt reports he hurts all over. He states "I took a tumble a few days ago". Patient is well known to the emergency department. He drinks daily. Patient states had a laceration sutured to his chin a couple weeks and he thinks it is infected. Patient reports he had a temperature of 102degrees 5 days ago. REVIEW OF SYSTEMS: Unable to obtain due to intoxication (Randee Callahan) - Physical Exam Exam: General Appearance: awake, smells of alcohol, follows commands. Head: left chin and mandible ecchymosis with swelling, hematoma under tongue Eyes: Pupils equal, round, reactive to light, EOMI, no trauma, no injection. Ears: Clear bilaterally, no perforation, no hemotympanum Nose: abrasion to nasal bridge, no septal hematoma Neck: The cervical spine is non-tender. ecchymosis to anterior neck Cardiovascular: Heart is tachycardic rate and rhythm without murmur. Good capillary refill all extremities. Chest: Atraumatic, equal bilateral breath sounds, diminished, rhonchi. Chest is non-tender to palpation. Gastrointestinal: Soft, diffuse tenderness, obese. No rebound, guarding, or peritoneal signs. Ecchymosis to left upper quadrant. Back:There is no thoracic or lumbar spine or paraspinal tenderness. Right flank hematoma Extremities: All extremities are non-tender to palpation without obvious deformity. There is full active range of motion of the joints. Left shoulder and axilla with ecchymosis. Bilateral knees with abrasions Neurological: The patient follows commands, no facial asymmetry, moves all extremities. Skin: multiple abrasions and bruises in multiple stages of healing to entire body. (Randee Callahan) Constitutional: Initial Vital Signs Temperature (C) 36.8 C 06/12/17 15:20 Heart Rate 123 H 06/12/17 15:20 Respiratory Rate 20 06/12/17 15:20 Blood Pressure 114/71 06/12/17 15:20 O2 Sat (%) 88 L 06/12/17 15:20 O2 Delivery Mode Nasal Cannula O2 (L/minute) 3 Allergies/Adverse Reactions: No Known Allergies Allergy (Verified 06/08/17 12:24) Home Medications: Medication Instructions Recorded FLUoxetine HCL [Fluoxetine HCl] 40 mg PO DAILY 01/20/17 traZODone [traZODone 150MG (*)] 150 - 300 mg PO HS PRN 01/20/17 Benztropine Mesylate [Cogentin] 0.5 mg PO BID #0 tab 01/21/17 Ibuprofen 600 mg PO BID PRN 01/21/17 Levothyroxine [Synthroid 112 mcg 112 mcg PO DAILY06 01/21/17 (*)] Paliperidone Palmitate [Invega 234 mg IM .QMONTH 01/21/17 Sustenna (*)] Paliperidone [Invega 3mg ER (*)] 9 mg PO DAILY PRN #0 tab.er 01/21/17 clonIDINE [Catapres (*)] 0.1 mg PO TID 01/21/17 oxyCODONE IR [Oxycodone Ir (*)] 5 mg PO Q4HRS PRN #45 tab 01/21/17 Medical Decision Making - Diagnostics Imaging Results: Imaging Impressions Abdomen CT 06/12/17 15:38 Impression: 1. Cirrhosis, with splenic varices. 2. No splenomegaly or ascites. 3. No evidence of intraabdominal or pelvic hematomas or organ laceration. 4. Right posterolateral back and deep subcutaneous fat small hematoma and edema. Findings and recommendations discussed with Emergency Department, Randee Callahan, N.P., at 1635 hours, on June 12, 2017. Final report concurs with initial preliminary interpretation. Cervical Spine CT 06/12/17 15:38 Impression: 1. No definite fracture. 2. C3-C4 central disk herniation resulting in moderate central canal stenosis, old. 3. Moderate degenerative disk disease at C5-C6 and C6-C7, with facet arthropathy, resulting in mild to moderate central canal stenosis and moderate to severe bilateral neural foraminal stenosis. 4. If there is persistent pain or neurological deficit, recommend MR cervical spine and consider flexion and extension views, if clinically indicated. Findings and recommendations discussed with Emergency Department Randee Callahan NOscarP., at 1635 hours, on June 12, 2017. Final report concurs with initial preliminary interpretation. Chest CT 06/12/17 15:38 Impression: 1. Coronary atherosclerosis. 2. No acute pulmonary disease. 3. No pneumothorax, pulmonary contusion, pleural effusion, or definite rib fracture. Findings and recommendations discussed with Emergency Department, Randee Callahan NOscarP., at 1635 hours, on June 12, 2017. Final report concurs with initial preliminary interpretation. Head CT 06/12/17 15:38 Impression: 1. Old nasal bone fracture. 2. Mild cerebral atrophy. 3. No epidural or subdural hematoma. 4. No acute skull fracture. 5. Microvascular ischemic gliosis versus postinfectious/postinflammatory white matter sequela bilateral frontal lobes. Findings and recommendations discussed with Emergency Department Randee Callahan NCindy., at 1641 hours, on June 12, 2017. Final report concurs with initial preliminary interpretation. Face CT 06/12/17 16:45 Impression: 1. Comminuted nondisplaced fractures of the left side of the body of the mandible from the midline laterally. 2. Left perimandibular edema, probably posttraumatic edema/diffuse hematoma versus phlegmon. 3. However, no drainable abscess. 4. Old nasal bone fractures. 5. No orbital wall or sinus wall acute fracture. Findings and recommendations discussed with Emergency Department, Randee Callahan N.P., at 1715 hours, on June 12, 2017. Final report concurs with initial preliminary interpretation. E:GI/amm ED Course/Re-evaluation: Labs have been ordered, CT head, neck, chest, abdomen and pelvis have been ordered. 1 L normal saline hanging. [facility], they state he is not allowed there and has not been there recently. Old records have been reviewed. Patient was seen in the emergency department 4 days ago and it was documented that no trauma was identified. [place] [address] with left shift. Patient has a anion gap of 26. Lactic acid 4.6, total bilirubin 6.4. CT's show splenic varices, cirrhosis of liver, mandibular fractures. Pt has been seen by my attending physician and severe sepsis protocol initiated. Pt admitted to hospitalist. I have spoken with trauma surgery and Oral surgery Dr. Michelle. IV fluids infusing. 1744- Trauma surgery at bedside. Dr. Cerna at bedside. (Randee Callahan) Differential Diagnosis: The differential diagnosis for the patient's trauma included but was not limited to intracranial injury, long bone and pelvic bone fractures, spinal injury, intra-abdominal injury, and intra-thoracic injury. (Randee Callahan) Other Provider: I evaluated and participated in the management of the patient. I also evaluated the patient independently. My co-signature indicates that I have reviewed this chart and I agree with the findings and plan of care as documented. My personal H&P findings include: 47-year-old male with long history of alcohol abuse presents after being found unresponsive. Patient has significant traumatic findings on evaluation including significant left-sided facial swelling, ecchymosis, as well as ecchymosis on the upper chest, lower back, abdomen, and lower extremities. Patient himself cannot clearly tell me what happened. Review of the records demonstrates the patient was seen on 05/26 with a laceration to his chin. This was sutured. He was seen again on 06/08 with alcohol intoxication and was noted to have no acute traumatic findings. Patient tells me that he was [facility] and that he had a temperature of a 102degrees. He believes that the left side of his face is infected. Patient can provide only minimal history secondary to intoxication. Review of systems is likewise limited. On examination the patient is tachycardic at 123. Left side of his face from the zygoma to the clavicle is swollen, ecchymotic, and slightly warm. There is swelling and ecchymosis under the patient's tongue. Dry blood is noted over the laceration. Patient's airways intact. Breath sounds are wheezy throughout. Abdomen is soft with right upper quadrant tenderness. There is a large ecchymosis in the left lower quadrant. No obvious deformities on the extremities. Given the patient's history of fever, consideration was made for potential septic complication. Imaging studies in the emergency department demonstrate multiple mandibular fractures, no clear abscess. Severe Sepsis/Septic Shock Care Note The patient presents to the ED with possibility of a facial cellulitis identified as an acute infection. The patient did have evidence of end-organ dysfunction and met criteria for severe sepsis. This condition was identified by myself at 1646. The patients vital signs are 146/110, heart rate 110, respiratory 20, O2 sat 88% on room air, 93% on 2 L, 36.9 C. The patient has a venous lactic acid performed within 3 hours of the identification of severe sepsis which was found to be 4.8. The patient has blood cultures drawn and received ceftriaxone IV, per the severe sepsis treatment protocol. The patient had already received antibiotic within the past 24 hours. The initial lactate was elevated and rechecked within 6 hours of the identification time of severe sepsis and found to be: 2.7 The patient also met criteria for septic shock because of lactic acid greater than 4. Patient was not hypotensive. Focused examination demonstrated 146/111, 110, 20, 93%, 36.9, heart is tachycardic, lungs are diffusely wheezy, capillary refill is less than 2 seconds, peripheral pulses are normal and skin exam is warm and dry. Patient was admitted to the hospitalist service with Dr. Morfin from General surgery providing a surgical consult given his trauma and Dr. Dahl from oral surgery providing consultation for his multiple mandibular fractures (Ann Cabezas) - Data Points Laboratory Results: Laboratory Results 06/12/17 15:15 06/12/17 15:15 06/12/17 06/12/17 06/12/17 17:00 16:25 15:15 WBC RBC Hgb Hct MCV MCH MCHC RDW Plt Count MPV Neut % (Auto) Lymph % (Auto) [place] % (Auto) Eos % (Auto) Baso % (Auto) Nucleat RBC Rel Count Absolute Neuts (auto) Absolute Lymphs (auto) Absolute Monos (auto) Absolute Eos (auto) Absolute Basos (auto) Absolute Nucleated RBC Immature Gran % Immature Gran # Platelet Estimate Microcytic Cells Target Cells Oval Macrocytes PT INR APTT VBG Lactic Acid 4.8 mmol/L H mmol/L (0.7-2.1) Sodium 141 mEq/L mEq/L (134-144) Potassium 3.7 mEq/L mEq/L (3.5-5.2) Chloride 98 mEq/L mEq/L (97-110) Carbon Dioxide 17 mEq/l L mEq/l (22-31) Anion Gap 26 mEq/L H mEq/L (8-16) BUN 8 mg/dL mg/dL (7-23) Creatinine 0.9 mg/dL mg/dL (0.7-1.3) Estimated GFR > 60 Glucose 92 mg/dL mg/dL (70-100) Calcium 8.4 mg/dL L mg/dL (8.5-10.4) Total Bilirubin Conjugated Bilirubin Unconjugated Bilirubin Urine Color DIMA Urine Appearance CLEAR Urine pH 6.0 (5.0-7.5) Ur Specific [place] 1.019 (1.002-1.030) Urine Protein 1+ H (NEGATIVE) Urine Ketones 1+ H (NEGATIVE) Urine Blood 2+ H (NEGATIVE) Urine Nitrate NEGATIVE (NEGATIVE) Urine Bilirubin NEGATIVE (NEGATIVE) Urine Urobilinogen 4.0 EU H EU (0.2-1.0) Ur Leukocyte Esterase NEGATIVE (NEGATIVE) Urine RBC 1-3 /hpf /hpf (0-3) Urine WBC 1-3 /hpf /hpf (0-3) Ur Epithelial Cells NONE SEEN /lpf /lpf (NONE-1+) Urine Mucus TRACE /lpf /lpf (NONE-1+) Urine Glucose NEGATIVE (NEGATIVE) Ethyl Alcohol 378 mg/dL H mg/dL (0-10) 06/12/17 06/12/17 06/12/17 15:15 15:15 15:15 WBC RBC Hgb Hct MCV MCH MCHC RDW Plt Count MPV Neut % (Auto) Lymph % (Auto) [place] % (Auto) Eos % (Auto) Baso % (Auto) Nucleat RBC Rel Count Absolute Neuts (auto) Absolute Lymphs (auto) Absolute Monos (auto) Absolute Eos (auto) Absolute Basos (auto) Absolute Nucleated RBC Immature Gran % Immature Gran # Platelet Estimate Microcytic Cells Target Cells Oval Macrocytes PT 15.6 SEC H SEC (12.0-15.0) INR 1.24 H (0.83-1.16) APTT 33.7 SEC SEC (23.0-38.0) VBG Lactic Acid Sodium 141 mEq/L mEq/L (134-144) Potassium 3.7 mEq/L mEq/L (3.5-5.2) Chloride 97 mEq/L mEq/L (97-110) Carbon Dioxide 18 mEq/l L mEq/l (22-31) Anion Gap 26 mEq/L H mEq/L (8-16) BUN 8 mg/dL mg/dL (7-23) Creatinine 0.9 mg/dL mg/dL (0.7-1.3) Estimated GFR > 60 Glucose 90 mg/dL mg/dL (70-100) Calcium 8.3 mg/dL L mg/dL (8.5-10.4) Total Bilirubin 6.4 mg/dL H mg/dL (0.1-1.4) Conjugated Bilirubin 4.2 mg/dL H mg/dL (0.0-0.5) Unconjugated Bilirubin 2.2 mg/dL H mg/dL (0.0-1.1) Urine Color Urine Appearance Urine pH Ur Specific [place] Urine Protein Urine Ketones Urine Blood Urine Nitrate Urine Bilirubin Urine Urobilinogen Ur Leukocyte Esterase Urine RBC Urine WBC Ur Epithelial Cells Urine Mucus Urine Glucose Ethyl Alcohol 06/12/17 15:15 WBC 14.58 10^3/uL H 10^3/uL (3.80-9.50) RBC 3.72 10^6/uL L 10^6/uL (4.40-6.38) Hgb 11.6 g/dL L g/dL (13.7-17.5) Hct 32.2 % L % (40.0-51.0) MCV 86.6 fL fL (81.5-99.8) MCH 31.2 pg pg (27.9-34.1) MCHC 36.0 g/dL g/dL (32.4-36.7) RDW 21.2 % H % (11.5-15.2) Plt Count 68 10^3/uL L 10^3/uL (150-400) MPV 10.4 fL fL (8.7-11.7) Neut % (Auto) 82.7 % H % (39.3-74.2) Lymph % (Auto) 7.7 % L % (15.0-45.0) [place] % (Auto) 8.8 % % (4.5-13.0) Eos % (Auto) 0.1 % L % (0.6-7.6) Baso % (Auto) 0.4 % % (0.3-1.7) Nucleat RBC Rel Count 0.0 % % (0.0-0.2) Absolute Neuts (auto) 12.07 10^3/uL H 10^3/uL (1.70-6.50) Absolute Lymphs (auto) 1.12 10^3/uL 10^3/uL (1.00-3.00) Absolute Monos (auto) 1.28 10^3/uL H 10^3/uL (0.30-0.80) Absolute Eos (auto) 0.01 10^3/uL L 10^3/uL (0.03-0.40) Absolute Basos (auto) 0.06 10^3/uL 10^3/uL (0.02-0.10) Absolute Nucleated RBC 0.00 10^3/uL 10^3/uL (0-0.01) Immature Gran % 0.3 % % (0.0-1.1) Immature Gran # 0.04 10^3/uL 10^3/uL (0.00-0.10) Platelet Estimate DECREASED L (ADEQ) Microcytic Cells 1+ H Target Cells 1+ H Oval Macrocytes 1+ H PT INR APTT VBG Lactic Acid Sodium Potassium Chloride Carbon Dioxide Anion Gap BUN Creatinine Estimated GFR Glucose Calcium Total Bilirubin Conjugated Bilirubin Unconjugated Bilirubin Urine Color Urine Appearance Urine pH Ur Specific [place] Urine Protein Urine Ketones Urine Blood Urine Nitrate Urine Bilirubin Urine Urobilinogen Ur Leukocyte Esterase Urine RBC Urine WBC Ur Epithelial Cells Urine Mucus Urine Glucose Ethyl Alcohol Medications Given: Sodium Chloride (Ns) 3,000 mls @ 500 mls/hr 30 ml/kg infuse over 6 hr (3000 ml ) IV EDNOW ONE PRN Reason: Protocol Stop: 06/12/17 22:45 Last Admin: 06/12/17 17:50 Dose: Not Given Discontinued Medications Sodium Chloride (Ns) 1,000 mls @ 0 mls/hr IV ONCE ONE PRN Reason: Wide Open Stop: 06/12/17 15:21 Last Admin: 06/12/17 15:42 Dose: 1,000 mls Sodium Chloride (Ns) 1,000 mls @ 0 mls/hr IV EDNOW ONE; Wide Open PRN Reason: Protocol Stop: 06/12/17 16:16 Last Admin: 06/12/17 16:28 Dose: 1,000 mls Ceftriaxone Sodium/Dextrose (Rocephin 1 Gm (Premix)) 50 mls @ 100 mls/hr IV EDNOW ONE PRN Reason: Protocol Stop: 06/12/17 17:15 Last Admin: 06/12/17 17:48 Dose: 50 mls Sodium Chloride (Ns) 1,000 mls @ 0 mls/hr IV ONCE ONE PRN Reason: Wide Open Stop: 06/12/17 17:47 Last Admin: 06/12/17 17:47 Dose: 1,000 mls Sodium Chloride (Ns) 1,000 mls @ 0 mls/hr IV EDNOW ONE PRN Reason: Wide Open Stop: 06/12/17 18:01 Last Admin: 06/12/17 18:56 Dose: 1,000 mls Departure - Departure Disposition: [facility] Inpatient Acute Clinical Impression: Acidosis, metabolic Multiple mandibular fracture sites, closed Qualifiers: Encounter type: initial encounter Qualified Code(s): S02.609A - Fracture of mandible, unspecified, initial encounter for closed fracture Alcoholic intoxication Qualifiers: Complication of substance-induced condition: uncomplicated Qualified Code(s): F10.920 - Alcohol use, unspecified with intoxication, uncomplicated Condition: Fair
[2017-06-12 15:43] LABS: RED CELL DISTRIBUTION WIDTH 21.2 % (11.5-15.2)
[2017-06-12] MEDS ORDERED: IOPAMIDOL (ISOVUE-300) 100 ML BTL ONE ×2 (15:45→16:55)
[2017-06-12 15:53] LABS: APTT 33.7 SEC (23.0-38.0); INR 1.24 (0.83-1.16); PROTIME(PATIENT) 15.6 SEC (12.0-15.0)
[2017-06-12 15:56] LABS: ANION GAP 26 mEq/L (8-16); CALCIUM 8.3 mg/dL (8.5-10.4); CARBON DIOXIDE 18 mEq/l (22-31); CHLORIDE 97 mEq/L (97-110); CREATININE 0.9 mg/dL (0.7-1.3); GLOMERULAR FILTRATION RATE > 60; GLUCOSE 90 mg/dL (70-100); POTASSIUM 3.7 mEq/L (3.5-5.2); SODIUM 141 mEq/L (134-144)
[2017-06-12 16:18] LABS: PLATELET ESTIMATE DECREASED (ADEQ)
[2017-06-12 16:24] LABS: MACROCYTES 1+; MICROCYTES 1+; TARGET CELLS 1+
[2017-06-12 16:37] LABS: BILIRUBIN,TOTAL 6.4 mg/dL (0.1-1.4)
[2017-06-12] MEDS ORDERED: NS 3,000 ML IV ONE (16:46)
[2017-06-12 16:57] LABS: BILIRUBIN-CONJUGATED 4.2 mg/dL (0.0-0.5); BILIRUBIN-UNCONJUGATED 2.2 mg/dL (0.0-1.1)
[2017-06-12 17:23] LABS: COLOR AMBER; LEUKOCYTE ESTERASE,URINE NEGATIVE (NEGATIVE); NITRITE,URINE NEGATIVE (NEGATIVE)
[2017-06-12 17:32] LABS: LACGHOST ORDER
[2017-06-12 17:36] LABS: MUCUS TRACE /lpf (NONE-1+)
[2017-06-12] MEDS ORDERED: IBUPROFEN 200 MG TAB PO ONE (17:41)
[2017-06-12 17:48] LABS: ANION GAP 26 mEq/L (8-16); CALCIUM 8.4 mg/dL (8.5-10.4); CARBON DIOXIDE 17 mEq/l (22-31); CHLORIDE 98 mEq/L (97-110); CREATININE 0.9 mg/dL (0.7-1.3); GLOMERULAR FILTRATION RATE > 60; GLUCOSE 92 mg/dL (70-100); POTASSIUM 3.7 mEq/L (3.5-5.2); SODIUM 141 mEq/L (134-144)
[2017-06-12 18:19] LABS: ETHANOL SERUM 378 mg/dL (0-10)
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
[2017-06-12] MEDS ORDERED: LORazepam 2 MG/ML INJ IVP ONE (19:28)
[2017-06-12] MEDS ORDERED: ERTAPENEM 1 GM in NS 100 ML IV SCH (19:30)
[2017-06-12] MEDS ORDERED: PALIPERIDONE 3 MG TAB.ER PO PRN (19:33)
[2017-06-12] MEDS ORDERED: LORazepam 2 MG/ML INJ ONE (19:34)
[2017-06-12] MEDS ORDERED: ONDANSETRON DISINTEGRATING 4 MG TAB PO PRN (19:42)
[2017-06-12] MEDS ORDERED: PROMETHAZINE HCL 25 MG/ML INJ IVP PRN (19:42)
[2017-06-12] MEDS ORDERED: ONDANSETRON 4 MG/2 ML VIAL IVP PRN (19:42)
[2017-06-12] MEDS ORDERED: NS 1,000 ML IV SCH (19:45)
[2017-06-12] MEDS ORDERED: PALIPERIDONE PALMITATE 234 MG/1.5 ML SYR IM SCH (19:45)
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
[2017-06-12] MEDS: ERTAPENEM 1 GM in NS 100 ML IV SCH (21:08)
[2017-06-12] MEDS: CHLORHEXIDINE GLUCONATE 15 ML UDL PO SCH (23:42)
[2017-06-12] MEDS: BENZTROPINE MESYLATE 1 MG TAB PO SCH (23:43)
[2017-06-13] MEDS: LORazepam 2 MG/ML INJ IVP PRN ×3 (03:46→20:53)
[2017-06-13] MEDS: oxyCODONE IR 5 MG TAB PO PRN ×4 (04:15→21:17)
[2017-06-13] MEDS: LEVOTHYROXINE 112 MCG TAB PO SCH (04:15)
[2017-06-13 04:25] LABS: % IMMATURE GRANULYOCYTES 0.3 % (0.0-1.1); ABSOLUTE IMMATURE GRANULOCYTES 0.04 10^3/uL (0.00-0.10); ADD DIFF? NO; ADD MORPH? YES; ADD SCAN? NO; ATYPICAL LYMPHOCYTE FLAG 0 (0-99); FRAGMENT RBC FLAG 20 (0-99); HEMATOCRIT 28.7 % (40.0-51.0); HEMOGLOBIN 9.7 g/dL (13.7-17.5); LEFT SHIFT FLG 0 (0-99); LIPEMIA HEMOLYSIS FLAG 90 (0-99); MEAN CELL HEMOGLOBIN 30.2 pg (27.9-34.1); MEAN CELL HEMOGLOBIN CONCENTR. 33.8 g/dL (32.4-36.7); MEAN CELL VOLUME 89.4 fL (81.5-99.8); PLATELET CLUMPS FLAG 0 (0-99); RED BLOOD CELL COUNT 3.21 10^6/uL (4.40-6.38)
[2017-06-13 04:40] LABS: PLATELET COUNT 40 10^3/uL (150-400); RED CELL DISTRIBUTION WIDTH 21.4 % (11.5-15.2)
[2017-06-13 04:52] LABS: ANION GAP 13 mEq/L (8-16); CALCIUM 7.1 mg/dL (8.5-10.4); CARBON DIOXIDE 21 mEq/l (22-31); CHLORIDE 106 mEq/L (97-110); CREATININE 0.9 mg/dL (0.7-1.3); GLOMERULAR FILTRATION RATE > 60; GLUCOSE 65 mg/dL (70-100); MAGNESIUM 1.6 mg/dL (1.6-2.3); POTASSIUM 3.7 mEq/L (3.5-5.2); SODIUM 140 mEq/L (134-144)
[2017-06-13 05:08] LABS: MACROCYTES 1+; MICROCYTES 1+
[2017-06-13 05:09] LABS: PLATELET ESTIMATE DECREASED (ADEQ); TARGET CELLS 1+
[2017-06-13] MEDS ORDERED: PROTOCOL MAGNESIUM 1 DOSE IV PRN (05:10)
[2017-06-13] MEDS ORDERED: MAGNESIUM SULF 1 GM/DEXTROSE 100 ML IV ONE (05:16)
[2017-06-13] MEDS: NS W/ 20 KCl/L 1,000 ML IV SCH (05:59)
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
[2017-06-13] MEDS ORDERED: NON-FORMULARY NEW DRUG (Fluoxetine Hcl [Fluoxetine Hcl] 40 MG) PO SCH (09:00)
[2017-06-13] MEDS: ENOXAPARIN 40 MG/0.4 ML SYR SC SCH (09:30)
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
[2017-06-13] MEDS: THIAMINE HCL 500 MG in NS 100 ML IV SCH (10:28)
[2017-06-13] MEDS: BENZTROPINE MESYLATE 1 MG TAB PO SCH ×2 (10:33→20:52)
[2017-06-13] MEDS: FLUoxetine 20 MG CAP PO SCH (10:34)
[2017-06-13] MEDS: CHLORHEXIDINE GLUCONATE 15 ML UDL PO SCH ×2 (10:34→20:52)
[2017-06-13] MEDS: chlordiazePOXIDE 25 MG CAP PO SCH ×3 (11:05→20:52)
[2017-06-13] MEDS: VANCOMYCIN 1.5 GM in D5W 250 ML IV SCH (11:20)
[2017-06-13] MEDS ORDERED: PALIPERIDONE PALMITATE 819 MG IM SCH (11:30)
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
[2017-06-13] MEDS: ERTAPENEM 1 GM in NS 100 ML IV SCH (21:15)
[2017-06-14] MEDS: VANCOMYCIN 1.5 GM in D5W 250 ML IV SCH ×2 (00:23→11:59)
[2017-06-14] MEDS: LORazepam 2 MG/ML INJ IVP PRN ×9 (00:23→17:38)
[2017-06-14] MEDS: NS W/ 20 KCl/L 1,000 ML IV SCH ×2 (03:30→17:25)
[2017-06-14 04:15] LABS: % IMMATURE GRANULYOCYTES 0.6 % (0.0-1.1); ABSOLUTE IMMATURE GRANULOCYTES 0.05 10^3/uL (0.00-0.10); ADD DIFF? NO; ADD MORPH? YES; ADD SCAN? NO; ATYPICAL LYMPHOCYTE FLAG 0 (0-99); FRAGMENT RBC FLAG 20 (0-99); HEMATOCRIT 27.2 % (40.0-51.0); HEMOGLOBIN 9.3 g/dL (13.7-17.5); LEFT SHIFT FLG 10 (0-99); LIPEMIA HEMOLYSIS FLAG 90 (0-99); MEAN CELL HEMOGLOBIN 30.6 pg (27.9-34.1); MEAN CELL HEMOGLOBIN CONCENTR. 34.2 g/dL (32.4-36.7); MEAN CELL VOLUME 89.5 fL (81.5-99.8); MEAN PLATELET VOLUME 11.1 fL (8.7-11.7); PLATELET CLUMPS FLAG 30 (0-99); RED BLOOD CELL COUNT 3.04 10^6/uL (4.40-6.38)
[2017-06-14 04:20] LABS: PLATELET COUNT 42 10^3/uL (150-400); RED CELL DISTRIBUTION WIDTH 20.9 % (11.5-15.2)
[2017-06-14 04:54] LABS: ANION GAP 9 mEq/L (8-16); CALCIUM 7.1 mg/dL (8.5-10.4); CARBON DIOXIDE 26 mEq/l (22-31); CHLORIDE 99 mEq/L (97-110); CREATININE 0.7 mg/dL (0.7-1.3); GLOMERULAR FILTRATION RATE > 60; GLUCOSE 106 mg/dL (70-100); MAGNESIUM 1.5 mg/dL (1.6-2.3); POTASSIUM 3.2 mEq/L (3.5-5.2); SODIUM 134 mEq/L (134-144)
[2017-06-14 05:07] LABS: MACROCYTES 1+; MICROCYTES 1+
[2017-06-14 05:08] LABS: PLATELET ESTIMATE DECREASED (ADEQ); TARGET CELLS 1+
[2017-06-14] MEDS ORDERED: MAGNESIUM SULF 1 GM/DEXTROSE 100 ML IV ONE (05:15)
[2017-06-14] MEDS: LEVOTHYROXINE 112 MCG TAB PO SCH (06:16)
[2017-06-14] MEDS: oxyCODONE IR 5 MG TAB PO PRN ×2 (06:16→13:31)
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
[2017-06-14] MEDS: CHLORHEXIDINE GLUCONATE 15 ML UDL PO SCH ×2 (08:55→22:05)
[2017-06-14] MEDS: FLUoxetine 20 MG CAP PO SCH (08:56)
[2017-06-14] MEDS: chlordiazePOXIDE 25 MG CAP PO SCH ×3 (08:56→22:05)
[2017-06-14] MEDS: BENZTROPINE MESYLATE 1 MG TAB PO SCH ×2 (08:56→22:05)
[2017-06-14] MEDS: THIAMINE HCL 500 MG in NS 100 ML IV SCH (09:23)
[2017-06-14] MEDS: ENOXAPARIN 40 MG/0.4 ML SYR SC SCH (10:40)
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
[2017-06-14] MEDS: DEXMEDETOMIDINE HCL 400 MCG in NS 100 ML IV SCH (17:43)
[2017-06-14] MEDS ORDERED: NS 500 ML IV PRN (19:17)
[2017-06-14] MEDS: ERTAPENEM 1 GM in NS 100 ML IV SCH (22:03)
[2017-06-15] MEDS: LORazepam 2 MG/ML INJ IVP PRN ×3 (00:08→16:53)
[2017-06-15] MEDS: DEXMEDETOMIDINE HCL 400 MCG in NS 100 ML IV SCH (01:50)
[2017-06-15] MEDS: NS W/ 20 KCl/L 1,000 ML IV SCH ×3 (01:51→23:10)
[2017-06-15] MEDS: IBUPROFEN 600 MG TAB PO PRN (04:45)
[2017-06-15] MEDS: LEVOTHYROXINE 112 MCG TAB PO SCH (04:46)
[2017-06-15 05:27] LABS: % IMMATURE GRANULYOCYTES 0.4 % (0.0-1.1); ABSOLUTE IMMATURE GRANULOCYTES 0.03 10^3/uL (0.00-0.10); ADD DIFF? NO; ADD MORPH? YES; ADD SCAN? NO; ATYPICAL LYMPHOCYTE FLAG 0 (0-99); FRAGMENT RBC FLAG 20 (0-99); HEMATOCRIT 30.5 % (40.0-51.0); HEMOGLOBIN 10.2 g/dL (13.7-17.5); LEFT SHIFT FLG 0 (0-99); LIPEMIA HEMOLYSIS FLAG 80 (0-99); MEAN CELL HEMOGLOBIN 30.5 pg (27.9-34.1); MEAN CELL HEMOGLOBIN CONCENTR. 33.4 g/dL (32.4-36.7); MEAN CELL VOLUME 91.3 fL (81.5-99.8); PLATELET CLUMPS FLAG 0 (0-99); RED BLOOD CELL COUNT 3.34 10^6/uL (4.40-6.38)
[2017-06-15 05:28] LABS: PLATELET COUNT 46 10^3/uL (150-400); RED CELL DISTRIBUTION WIDTH 20.9 % (11.5-15.2)
[2017-06-15 05:41] LABS: ANION GAP 8 mEq/L (8-16); CALCIUM 7.4 mg/dL (8.5-10.4); CARBON DIOXIDE 23 mEq/l (22-31); CHLORIDE 109 mEq/L (97-110); CREATININE 0.7 mg/dL (0.7-1.3); GLOMERULAR FILTRATION RATE > 60; GLUCOSE 98 mg/dL (70-100); MAGNESIUM 1.7 mg/dL (1.6-2.3); SODIUM 140 mEq/L (134-144)
[2017-06-15] MEDS ORDERED: MAGNESIUM SULF 1 GM/DEXTROSE 100 ML IV ONE (05:48)
[2017-06-15 06:29] LABS: MACROCYTES 1+; MICROCYTES 1+; PLATELET ESTIMATE DECREASED (ADEQ); TARGET CELLS 1+
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
[2017-06-15] MEDS ORDERED: THIAMINE HCL 100 MG TAB PO SCH (09:00)
[2017-06-15] MEDS: FLUoxetine 20 MG CAP PO SCH (09:50)
[2017-06-15] MEDS: chlordiazePOXIDE 25 MG CAP PO SCH ×3 (09:50→20:41)
[2017-06-15] MEDS: CHLORHEXIDINE GLUCONATE 15 ML UDL PO SCH ×2 (09:50→20:49)
[2017-06-15] MEDS: BENZTROPINE MESYLATE 1 MG TAB PO SCH ×2 (09:50→20:41)
[2017-06-15] MEDS: THIAMINE HCL 500 MG in NS 100 ML IV SCH (09:50)
[2017-06-15] MEDS ORDERED: K PHOS 10 MMOL in D5W 250 ML IV ONE (12:00)
[2017-06-15] MEDS: oxyCODONE IR 5 MG TAB PO PRN ×3 (12:39→20:49)
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
[2017-06-15] MEDS ORDERED: PROTOCOL POTASSIUM 1 DOSE MISC PRN (13:07)
[2017-06-15] MEDS ORDERED: PROTOCOL K PHOSPHATE 1 DOSE IV PRN (13:07)
[2017-06-15] MEDS ORDERED: PROTOCOL CALCIUM 1 DOSE IV PRN (13:07)
[2017-06-15] MEDS: ENOXAPARIN 40 MG/0.4 ML SYR SC SCH (13:47)
[2017-06-15 14:44] LABS: IONIZED CALCIUM 1.07 MMOL/L (1.12-1.30)
[2017-06-15] MEDS ORDERED: CALCIUM GLUCONATE 50 ML IV ONE (14:51)
[2017-06-15 15:14] LABS: POTASSIUM 4.6 mEq/L (3.5-5.2)
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
[2017-06-15] MEDS: ERTAPENEM 1 GM in NS 100 ML IV SCH (20:42)
[2017-06-16] MEDS: LEVOTHYROXINE 112 MCG TAB PO SCH (05:21)
[2017-06-16] MEDS: oxyCODONE IR 5 MG TAB PO PRN ×4 (05:23→21:49)
[2017-06-16 05:52] LABS: IONIZED CALCIUM 1.09 MMOL/L (1.12-1.30)
[2017-06-16 06:16] LABS: MAGNESIUM 1.7 mg/dL (1.6-2.3); POTASSIUM 4.2 mEq/L (3.5-5.2)
[2017-06-16] MEDS: THIAMINE HCL 500 MG in NS 100 ML IV SCH (09:03)
[2017-06-16] MEDS ORDERED: MAGNESIUM SULF 1 GM/DEXTROSE 100 ML IV ONE (10:24)
[2017-06-16] MEDS ORDERED: CALCIUM GLUCONATE 50 ML IV ONE (10:25)
[2017-06-16] MEDS: BENZTROPINE MESYLATE 1 MG TAB PO SCH ×2 (11:32→21:49)
[2017-06-16] MEDS: AMOXICILLIN/CLAVULANATE POT 875/125 MG TAB PO SCH ×2 (11:32→21:49)
[2017-06-16] MEDS: FLUoxetine 20 MG CAP PO SCH (11:33)
[2017-06-16] MEDS: chlordiazePOXIDE 25 MG CAP PO SCH ×3 (11:38→21:49)
[2017-06-16] MEDS: CHLORHEXIDINE GLUCONATE 15 ML UDL PO SCH ×2 (11:41→21:49)
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
[2017-06-16] MEDS: ENOXAPARIN 40 MG/0.4 ML SYR SC SCH (13:49)
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
[2017-06-16] MEDS: LORazepam 2 MG/ML INJ IVP PRN ×2 (15:43→21:59)
[2017-06-16 18:27] LABS: POTASSIUM 3.7 mEq/L (3.5-5.2)
[2017-06-16] MEDS ORDERED: POTASSIUM CL 10 MEQ TAB PO ONE (21:54)
[2017-06-17 05:24] LABS: % IMMATURE GRANULYOCYTES 0.4 % (0.0-1.1); ABSOLUTE IMMATURE GRANULOCYTES 0.03 10^3/uL (0.00-0.10); ADD DIFF? NO; ADD MORPH? YES; ADD SCAN? NO; ATYPICAL LYMPHOCYTE FLAG 0 (0-99); FRAGMENT RBC FLAG 20 (0-99); HEMATOCRIT 29.3 % (40.0-51.0); LEFT SHIFT FLG 0 (0-99); LIPEMIA HEMOLYSIS FLAG 90 (0-99); MEAN CELL HEMOGLOBIN 31.4 pg (27.9-34.1); MEAN CELL HEMOGLOBIN CONCENTR. 34.1 g/dL (32.4-36.7); MEAN CELL VOLUME 92.1 fL (81.5-99.8); MEAN PLATELET VOLUME 11.6 fL (8.7-11.7); PLATELET CLUMPS FLAG 0 (0-99); PLATELET COUNT 74 10^3/uL (150-400); RED BLOOD CELL COUNT 3.18 10^6/uL (4.40-6.38)
[2017-06-17 05:25] LABS: RED CELL DISTRIBUTION WIDTH 21.8 % (11.5-15.2)
[2017-06-17] MEDS ORDERED: CALCIUM GLUCONATE 50 ML IV ONE (05:33)
[2017-06-17 05:44] LABS: ANION GAP 8 mEq/L (8-16); CALCIUM 8.6 mg/dL (8.5-10.4); CARBON DIOXIDE 26 mEq/l (22-31); CHLORIDE 101 mEq/L (97-110); CREATININE 0.8 mg/dL (0.7-1.3); GLOMERULAR FILTRATION RATE > 60; GLUCOSE 86 mg/dL (70-100); MAGNESIUM 1.6 mg/dL (1.6-2.3); POTASSIUM 3.8 mEq/L (3.5-5.2); SODIUM 135 mEq/L (134-144)
[2017-06-17] MEDS: LEVOTHYROXINE 112 MCG TAB PO SCH (05:46)
[2017-06-17 05:52] LABS: HYPOCHROMIA 1+; MACROCYTES 1+; MICROCYTES 1+; PLATELET ESTIMATE DECREASED (ADEQ); TARGET CELLS 1+
[2017-06-17] MEDS ORDERED: POTASSIUM CL 10 MEQ TAB PO ONE ×2 (05:53→11:00)
[2017-06-17] MEDS ORDERED: MAGNESIUM SULF 1 GM/DEXTROSE 100 ML IV ONE (06:00)
[2017-06-17] MEDS: CHLORHEXIDINE GLUCONATE 15 ML UDL PO SCH ×2 (10:23→21:05)
[2017-06-17] MEDS: BENZTROPINE MESYLATE 1 MG TAB PO SCH ×2 (10:23→21:09)
[2017-06-17] MEDS: AMOXICILLIN/CLAVULANATE POT 875/125 MG TAB PO SCH ×2 (10:23→21:05)
[2017-06-17] MEDS: FLUoxetine 20 MG CAP PO SCH (10:24)
[2017-06-17] MEDS: chlordiazePOXIDE 25 MG CAP PO SCH (10:24)
[2017-06-17] MEDS: ENOXAPARIN 40 MG/0.4 ML SYR SC SCH (10:24)
[2017-06-17] MEDS ORDERED: LORazepam 1 MG TAB PO PRN (15:43)
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
[2017-06-17 19:31] LABS: POTASSIUM 4.1 mEq/L (3.5-5.2)
[2017-06-17] MEDS: IBUPROFEN 600 MG TAB PO PRN (21:05)
[2017-06-17] MEDS: oxyCODONE IR 5 MG TAB PO PRN (21:10)
[2017-06-18] MEDS: LEVOTHYROXINE 112 MCG TAB PO SCH (05:03)
[2017-06-18 05:09] LABS: IONIZED CALCIUM 1.15 MMOL/L (1.12-1.30)
[2017-06-18 05:28] LABS: MAGNESIUM 1.7 mg/dL (1.6-2.3)
[2017-06-18] MEDS: AMOXICILLIN/CLAVULANATE POT 875/125 MG TAB PO SCH ×2 (09:12→20:25)
[2017-06-18] MEDS: CHLORHEXIDINE GLUCONATE 15 ML UDL PO SCH ×2 (09:12→20:25)
[2017-06-18] MEDS: BENZTROPINE MESYLATE 1 MG TAB PO SCH ×2 (09:12→20:25)
[2017-06-18] MEDS: FLUoxetine 20 MG CAP PO SCH (09:12)
[2017-06-18] MEDS: ENOXAPARIN 40 MG/0.4 ML SYR SC SCH (09:13)
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
[2017-06-18] MEDS: GABAPENTIN 300 MG CAP PO SCH ×2 (09:58→20:25)
[2017-06-18] MEDS ORDERED: MAGNESIUM SULF 1 GM/DEXTROSE 100 ML IV ONE (10:30)
[2017-06-18] MEDS: oxyCODONE IR 5 MG TAB PO PRN (14:59)
[2017-06-18] MEDS: IBUPROFEN 600 MG TAB PO PRN (14:59)
[2017-06-18] MEDS ORDERED: THIAMINE HCL 100 MG TAB PO SCH (16:00)
[2017-06-18] MEDS: THIAMINE HCL 500 MG in NS 100 ML IV SCH ×2 (17:30→20:25)
[2017-06-18] MEDS: FOLIC ACID 1 MG TAB PO SCH (18:09)
[2017-06-18] MEDS: MULTIVITAMINS 1 EACH TAB PO SCH (18:09)
[2017-06-19 04:42] LABS: IONIZED CALCIUM 1.16 MMOL/L (1.12-1.30)
[2017-06-19] MEDS: THIAMINE HCL 500 MG in NS 100 ML IV SCH ×3 (04:43→22:28)
[2017-06-19] MEDS: LEVOTHYROXINE 112 MCG TAB PO SCH (04:43)
[2017-06-19 05:01] LABS: MAGNESIUM 1.8 mg/dL (1.6-2.3); POTASSIUM 4.1 mEq/L (3.5-5.2)
[2017-06-19] MEDS: FOLIC ACID 1 MG TAB PO SCH (08:55)
[2017-06-19] MEDS: BENZTROPINE MESYLATE 1 MG TAB PO SCH ×2 (08:55→20:16)
[2017-06-19] MEDS: FLUoxetine 20 MG CAP PO SCH (08:55)
[2017-06-19] MEDS: GABAPENTIN 300 MG CAP PO SCH ×2 (08:55→20:17)
[2017-06-19] MEDS: AMOXICILLIN/CLAVULANATE POT 875/125 MG TAB PO SCH (08:55)
[2017-06-19] MEDS: CHLORHEXIDINE GLUCONATE 15 ML UDL PO SCH ×2 (08:55→20:17)
[2017-06-19] MEDS: ENOXAPARIN 40 MG/0.4 ML SYR SC SCH (08:55)
[2017-06-19] MEDS ORDERED: MAGNESIUM SULF 1 GM/DEXTROSE 100 ML IV ONE (09:06)
[2017-06-19] MEDS: IBUPROFEN 600 MG TAB PO PRN (09:29)
[2017-06-19] MEDS: MULTIVITAMINS 1 EACH TAB PO SCH (09:29)
[2017-06-19] MEDS: oxyCODONE IR 5 MG TAB PO PRN (09:30)
[2017-06-19] MEDS: ACETAMINOPHEN 325 MG TAB PO PRN (13:40)
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
[2017-06-20] MEDS: ACETAMINOPHEN 325 MG TAB PO PRN (01:41)
[2017-06-20] MEDS: oxyCODONE IR 5 MG TAB PO PRN ×2 (01:41→15:15)
[2017-06-20] MEDS: THIAMINE HCL 500 MG in NS 100 ML IV SCH ×3 (05:41→22:13)
[2017-06-20] MEDS: LEVOTHYROXINE 112 MCG TAB PO SCH (05:41)
[2017-06-20] MEDS: GABAPENTIN 300 MG CAP PO SCH ×2 (09:43→20:41)
[2017-06-20] MEDS: MULTIVITAMINS 1 EACH TAB PO SCH (09:43)
[2017-06-20] MEDS: FLUoxetine 20 MG CAP PO SCH (09:43)
[2017-06-20] MEDS: FOLIC ACID 1 MG TAB PO SCH (09:44)
[2017-06-20] MEDS: BENZTROPINE MESYLATE 1 MG TAB PO SCH ×2 (09:44→20:41)
[2017-06-20] MEDS: CHLORHEXIDINE GLUCONATE 15 ML UDL PO SCH ×2 (09:45→20:40)
[2017-06-20] MEDS: IBUPROFEN 600 MG TAB PO PRN (13:53)
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
[2017-06-21] MEDS: THIAMINE HCL 500 MG in NS 100 ML IV SCH ×2 (05:44→14:20)
[2017-06-21] MEDS: LEVOTHYROXINE 112 MCG TAB PO SCH (05:44)
[2017-06-21 06:26] LABS: HEMATOCRIT 30.9 % (40.0-51.0); HEMOGLOBIN 10.5 g/dL (13.7-17.5); MEAN CELL HEMOGLOBIN 31.2 pg (27.9-34.1); MEAN CELL VOLUME 91.7 fL (81.5-99.8); RED BLOOD CELL COUNT 3.37 10^6/uL (4.40-6.38)
[2017-06-21 06:29] LABS: RED CELL DISTRIBUTION WIDTH 22.3 % (11.5-15.2)
[2017-06-21] MEDS: BENZTROPINE MESYLATE 1 MG TAB PO SCH ×2 (08:35→20:17)
[2017-06-21] MEDS: GABAPENTIN 300 MG CAP PO SCH ×2 (08:36→20:17)
[2017-06-21] MEDS: FLUoxetine 20 MG CAP PO SCH (08:36)
[2017-06-21] MEDS: MULTIVITAMINS 1 EACH TAB PO SCH (08:37)
[2017-06-21] MEDS: oxyCODONE IR 5 MG TAB PO PRN ×2 (08:37→16:03)
[2017-06-21] MEDS: FOLIC ACID 1 MG TAB PO SCH (08:37)
[2017-06-21] MEDS: IBUPROFEN 600 MG TAB PO PRN ×2 (08:41→16:03)
[2017-06-21] MEDS: CHLORHEXIDINE GLUCONATE 15 ML UDL PO SCH ×2 (10:20→20:19)
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
[2017-06-21] MEDS: ACETAMINOPHEN 325 MG TAB PO PRN (20:18)
[2017-06-22] MEDS: LEVOTHYROXINE 112 MCG TAB PO SCH (04:54)
[2017-06-22] MEDS: THIAMINE HCL 100 MG TAB PO SCH (08:06)
[2017-06-22] MEDS: MULTIVITAMINS 1 EACH TAB PO SCH (08:06)
[2017-06-22] MEDS: oxyCODONE IR 5 MG TAB PO PRN ×3 (08:06→18:33)
[2017-06-22] MEDS: GABAPENTIN 300 MG CAP PO SCH ×2 (08:06→21:11)
[2017-06-22] MEDS: FOLIC ACID 1 MG TAB PO SCH (08:06)
[2017-06-22] MEDS: FLUoxetine 20 MG CAP PO SCH (08:06)
[2017-06-22] MEDS: BENZTROPINE MESYLATE 1 MG TAB PO SCH ×2 (08:07→21:11)
[2017-06-22] MEDS: ENOXAPARIN 40 MG/0.4 ML SYR SC SCH (08:07)
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
[2017-06-22] MEDS: CHLORHEXIDINE GLUCONATE 15 ML UDL PO SCH ×2 (12:56→21:12)
[2017-06-22] MEDS: IBUPROFEN 600 MG TAB PO PRN ×2 (12:56→21:11)
[2017-06-23] MEDS: LEVOTHYROXINE 112 MCG TAB PO SCH (05:00)
[2017-06-23 05:34] LABS: ANION GAP 8 mEq/L (8-16); CALCIUM 8.7 mg/dL (8.5-10.4); CARBON DIOXIDE 26 mEq/l (22-31); CHLORIDE 103 mEq/L (97-110); CREATININE 0.9 mg/dL (0.7-1.3); GLOMERULAR FILTRATION RATE > 60; GLUCOSE 78 mg/dL (70-100); POTASSIUM 4.1 mEq/L (3.5-5.2); SODIUM 137 mEq/L (134-144)
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
[2017-06-23] MEDS: CHLORHEXIDINE GLUCONATE 15 ML UDL PO SCH ×2 (09:52→22:21)
[2017-06-23] MEDS: FOLIC ACID 1 MG TAB PO SCH (09:52)
[2017-06-23] MEDS: GABAPENTIN 300 MG CAP PO SCH ×2 (09:52→22:21)
[2017-06-23] MEDS: THIAMINE HCL 100 MG TAB PO SCH (09:52)
[2017-06-23] MEDS: ENOXAPARIN 40 MG/0.4 ML SYR SC SCH (09:52)
[2017-06-23] MEDS: MULTIVITAMINS 1 EACH TAB PO SCH (09:52)
[2017-06-23] MEDS: BENZTROPINE MESYLATE 1 MG TAB PO SCH ×2 (09:52→22:21)
[2017-06-23] MEDS: FLUoxetine 20 MG CAP PO SCH (09:52)
[2017-06-23] MEDS: oxyCODONE IR 5 MG TAB PO PRN (10:01)
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
[2017-06-24] MEDS: LEVOTHYROXINE 112 MCG TAB PO SCH (04:58)
[2017-06-24] MEDS: FLUoxetine 20 MG CAP PO SCH (09:02)
[2017-06-24] MEDS: MULTIVITAMINS 1 EACH TAB PO SCH (09:02)
[2017-06-24] MEDS: GABAPENTIN 300 MG CAP PO SCH ×2 (09:02→20:33)
[2017-06-24] MEDS: ENOXAPARIN 40 MG/0.4 ML SYR SC SCH (09:03)
[2017-06-24] MEDS: THIAMINE HCL 100 MG TAB PO SCH (09:03)
[2017-06-24] MEDS: FOLIC ACID 1 MG TAB PO SCH (09:03)
[2017-06-24] MEDS: BENZTROPINE MESYLATE 1 MG TAB PO SCH ×2 (09:03→20:32)
[2017-06-24] MEDS: CHLORHEXIDINE GLUCONATE 15 ML UDL PO SCH ×2 (09:04→20:33)
[2017-06-24] MEDS: oxyCODONE IR 5 MG TAB PO PRN ×2 (14:09→20:35)
[2017-06-24] MEDS: IBUPROFEN 600 MG TAB PO PRN (14:09)
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
[2017-06-24] MEDS: ACETAMINOPHEN 325 MG TAB PO PRN (21:08)
[2017-06-25] MEDS: IBUPROFEN 600 MG TAB PO PRN ×2 (05:42→22:12)
[2017-06-25] MEDS: LEVOTHYROXINE 112 MCG TAB PO SCH (05:42)
[2017-06-25] MEDS: oxyCODONE IR 5 MG TAB PO PRN ×3 (06:25→18:32)
[2017-06-25] MEDS: FOLIC ACID 1 MG TAB PO SCH (10:05)
[2017-06-25] MEDS: FLUoxetine 20 MG CAP PO SCH (10:06)
[2017-06-25] MEDS: THIAMINE HCL 100 MG TAB PO SCH (10:06)
[2017-06-25] MEDS: MULTIVITAMINS 1 EACH TAB PO SCH (10:07)
[2017-06-25] MEDS: GABAPENTIN 300 MG CAP PO SCH ×2 (10:07→22:12)
[2017-06-25] MEDS: ENOXAPARIN 40 MG/0.4 ML SYR SC SCH (10:08)
[2017-06-25] MEDS: BENZTROPINE MESYLATE 1 MG TAB PO SCH ×2 (10:12→22:13)
[2017-06-25] MEDS: CHLORHEXIDINE GLUCONATE 15 ML UDL PO SCH ×2 (10:14→22:12)
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
--- NOTE | 2017-06-25 16:16 | ASMTCMCOM ---
CM Note CM Note Notes: New referrals [facility]ed to [facility] today. [facility] declined because they share a parking lot with a liquor store. [facility] declined because pt's care needs exceeds their capacity. [facility] had not responded yet. C/M to follow. Date Signed: 06/25/2017 04:15 PM Electronically Signed By:Trinidad Underwood
[2017-06-26] MEDS: LEVOTHYROXINE 112 MCG TAB PO SCH (04:26)
[2017-06-26] MEDS: IBUPROFEN 600 MG TAB PO PRN ×2 (09:55→20:58)
[2017-06-26] MEDS: BENZTROPINE MESYLATE 1 MG TAB PO SCH ×2 (09:55→19:31)
[2017-06-26] MEDS: ENOXAPARIN 40 MG/0.4 ML SYR SC SCH (09:55)
[2017-06-26] MEDS: FOLIC ACID 1 MG TAB PO SCH (09:57)
[2017-06-26] MEDS: THIAMINE HCL 100 MG TAB PO SCH (09:57)
[2017-06-26] MEDS: FLUoxetine 20 MG CAP PO SCH (09:58)
[2017-06-26] MEDS: GABAPENTIN 300 MG CAP PO SCH ×2 (09:58→19:31)
[2017-06-26] MEDS: CHLORHEXIDINE GLUCONATE 15 ML UDL PO SCH ×2 (09:58→19:31)
[2017-06-26] MEDS: MULTIVITAMINS 1 EACH TAB PO SCH (09:58)
[2017-06-26] MEDS: ACETAMINOPHEN 325 MG TAB PO PRN (14:03)
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
[2017-06-26] MEDS: oxyCODONE IR 5 MG TAB PO PRN (20:57)
[2017-06-27] MEDS: LEVOTHYROXINE 112 MCG TAB PO SCH (04:20)
[2017-06-27] MEDS: oxyCODONE IR 5 MG TAB PO PRN ×4 (04:20→20:25)
[2017-06-27 04:33] LABS: HEMATOCRIT 32.3 % (40.0-51.0); MEAN CELL HEMOGLOBIN 31.8 pg (27.9-34.1); MEAN CELL HEMOGLOBIN CONCENTR. 34.1 g/dL (32.4-36.7); MEAN CELL VOLUME 93.4 fL (81.5-99.8); RED BLOOD CELL COUNT 3.46 10^6/uL (4.40-6.38)
[2017-06-27 04:36] LABS: RED CELL DISTRIBUTION WIDTH 21.1 % (11.5-15.2)
[2017-06-27] MEDS: IBUPROFEN 600 MG TAB PO PRN (09:52)
[2017-06-27] MEDS: FLUoxetine 20 MG CAP PO SCH (09:53)
[2017-06-27] MEDS: GABAPENTIN 300 MG CAP PO SCH ×2 (09:53→19:38)
[2017-06-27] MEDS: BENZTROPINE MESYLATE 1 MG TAB PO SCH ×2 (09:53→19:38)
[2017-06-27] MEDS: FOLIC ACID 1 MG TAB PO SCH (09:53)
[2017-06-27] MEDS: MULTIVITAMINS 1 EACH TAB PO SCH (09:53)
[2017-06-27] MEDS: THIAMINE HCL 100 MG TAB PO SCH (09:53)
[2017-06-27] MEDS: CHLORHEXIDINE GLUCONATE 15 ML UDL PO SCH ×2 (09:53→19:37)
[2017-06-27] MEDS: ENOXAPARIN 40 MG/0.4 ML SYR SC SCH (09:54)
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
[2017-06-28] MEDS: oxyCODONE IR 5 MG TAB PO PRN ×4 (02:30→22:24)
[2017-06-28] MEDS: IBUPROFEN 600 MG TAB PO PRN ×2 (02:30→12:58)
[2017-06-28] MEDS: LEVOTHYROXINE 112 MCG TAB PO SCH (06:16)
[2017-06-28] MEDS: FOLIC ACID 1 MG TAB PO SCH (08:17)
[2017-06-28] MEDS: BENZTROPINE MESYLATE 1 MG TAB PO SCH ×2 (08:17→22:24)
[2017-06-28] MEDS: CHLORHEXIDINE GLUCONATE 15 ML UDL PO SCH ×2 (08:17→22:24)
[2017-06-28] MEDS: THIAMINE HCL 100 MG TAB PO SCH (08:17)
[2017-06-28] MEDS: FLUoxetine 20 MG CAP PO SCH (08:17)
[2017-06-28] MEDS: MULTIVITAMINS 1 EACH TAB PO SCH (08:17)
[2017-06-28] MEDS: GABAPENTIN 300 MG CAP PO SCH ×2 (08:17→22:25)
[2017-06-28] MEDS: ENOXAPARIN 40 MG/0.4 ML SYR SC SCH (08:18)
--- NOTE | 2017-06-28 15:49 | ASMTCMCOM ---
CM Note CM Note Notes: Per last CM report, pt has been declined by up to seven SNF d/t his history of alcoholism and non-compliance. I called Naomi at [facility] ([phone]), she knows pt well. Naomi said she will call his [facility] therapist and explain situation (pt needs 4 more weeks pureed diet) and see if [facility] can assist with respite or some sort of housing. CM will follow Date Signed: 06/28/2017 03:48 PM Electronically Signed By:Jie Tan
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
--- NOTE | 2017-06-28 16:49 | ASMTCMCOM ---
KEIKO Note KEIKO Note Notes: Received a call from Jovani Linder at [facility] ([phone]) who is working on finding respite for patient. Per Jovani, there might be an option to give patient 4 weeks of respite, with daily case management support; however, the respite is not medical and would require that patient is able to use stairs and cook for himself. He would also be terminated immediately if he drank alcohol or had his girlfriend stay with him. If this option is realistic for patient, he will need to discharge to the [facility] and they will then direct him to respite. KEIKO Abdi will follow up with patient and providers tomorrow to determine whether this plan is safe and viable. Date Signed: 06/28/2017 04:49 PM Electronically Signed By:Jie Tan
[2017-06-29] MEDS: LEVOTHYROXINE 112 MCG TAB PO SCH (06:34)
[2017-06-29] MEDS: BENZTROPINE MESYLATE 1 MG TAB PO SCH ×2 (09:20→21:04)
[2017-06-29] MEDS: THIAMINE HCL 100 MG TAB PO SCH (09:20)
[2017-06-29] MEDS: CHLORHEXIDINE GLUCONATE 15 ML UDL PO SCH ×2 (09:20→21:03)
[2017-06-29] MEDS: GABAPENTIN 300 MG CAP PO SCH ×2 (09:22→21:04)
[2017-06-29] MEDS: MULTIVITAMINS 1 EACH TAB PO SCH (09:22)
[2017-06-29] MEDS: FLUoxetine 20 MG CAP PO SCH (09:23)
[2017-06-29] MEDS: FOLIC ACID 1 MG TAB PO SCH (09:25)
[2017-06-29] MEDS: oxyCODONE IR 5 MG TAB PO PRN ×3 (09:26→21:10)
[2017-06-29] MEDS: ENOXAPARIN 40 MG/0.4 ML SYR SC SCH (09:27)
[2017-06-29] MEDS: ACETAMINOPHEN 325 MG TAB PO PRN (13:22)
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
[2017-06-30] MEDS: LEVOTHYROXINE 112 MCG TAB PO SCH (05:10)
[2017-06-30] MEDS: CHLORHEXIDINE GLUCONATE 15 ML UDL PO SCH ×2 (09:31→21:04)
[2017-06-30] MEDS: MULTIVITAMINS 1 EACH TAB PO SCH (09:31)
[2017-06-30] MEDS: FLUoxetine 20 MG CAP PO SCH (09:31)
[2017-06-30] MEDS: GABAPENTIN 300 MG CAP PO SCH ×2 (09:31→21:04)
[2017-06-30] MEDS: ENOXAPARIN 40 MG/0.4 ML SYR SC SCH (09:31)
[2017-06-30] MEDS: THIAMINE HCL 100 MG TAB PO SCH (09:31)
[2017-06-30] MEDS: BENZTROPINE MESYLATE 1 MG TAB PO SCH ×2 (09:31→21:04)
[2017-06-30] MEDS: FOLIC ACID 1 MG TAB PO SCH (09:31)
[2017-06-30] MEDS: oxyCODONE IR 5 MG TAB PO PRN ×3 (09:37→21:05)
[2017-06-30] MEDS: ACETAMINOPHEN 325 MG TAB PO PRN (13:56)
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
[2017-07-01] MEDS: LEVOTHYROXINE 112 MCG TAB PO SCH (05:24)
[2017-07-01] MEDS: GABAPENTIN 300 MG CAP PO SCH (08:57)
[2017-07-01] MEDS: THIAMINE HCL 100 MG TAB PO SCH (08:57)
[2017-07-01] MEDS: CHLORHEXIDINE GLUCONATE 15 ML UDL PO SCH (08:57)
[2017-07-01] MEDS: MULTIVITAMINS 1 EACH TAB PO SCH (08:57)
[2017-07-01] MEDS: BENZTROPINE MESYLATE 1 MG TAB PO SCH (08:57)
[2017-07-01] MEDS: FOLIC ACID 1 MG TAB PO SCH (08:57)
[2017-07-01] MEDS: FLUoxetine 20 MG CAP PO SCH (08:57)
[2017-07-01] MEDS: ENOXAPARIN 40 MG/0.4 ML SYR SC SCH (09:03)
[2017-07-01 09:05] VITALS: BP 128/79; PULSE 72; RESP 18; TEMP 97.9; O2SAT 92
[2017-07-01] MEDS: oxyCODONE IR 5 MG TAB PO PRN (09:41)
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
[2017-07-01] MEDS: IBUPROFEN 600 MG TAB PO PRN (11:51)
--- NOTE | 2017-07-03 17:04 | ASMTCMCOM ---
CM Note CM Note Notes: Spoke with pt about [facility]'s requirements for pt to go to a respite care apt through [facility]. They require that pt is able to use stairs and cook for himself. He would also be terminated immediately if he drank alcohol or had his girlfriend stay with him. Pt is okay preparing pureed foods for himself. PT worked with him to make sure he could manage stairs. Pt is okay with his girlfreind not staying with him as long as he can visit with her. Pt's main problem was with not drinking. He states that he is able to not drink at [facility] because he has access to television. He states the [facility] doesn't have that and it is unclear if his respite place will either. Spoke with Jovani Linder at [facility] ([phone]) to let him know pt's concerns so that we can determine whether this plan is safe and viable. Jovani stated that pt would need to go their crisis management Center at [place] and from there, they will evaluate him for placement in the respite apt. He will have his own room at the apt with a shared bathroom but no TV. It is likely that pt will refuse the apt. Spoke with RN and C/M will continue to locate a LTC facility that will take pt. Plan to discuss with MD tomorrow. C/M to follow. . Date Signed: 06/29/2017 05:20 PM Electronically Signed By:Trinidad Underwood
--- NOTE | 2017-07-03 17:04 | ASMTCMCOM ---
CM Note CM Note Notes: Yesterday C/M spokewith pt about [facility]'s requirements for pt to go to a respite care apt through [facility]. They require that pt is able to use stairs and cook for himself. He would also be terminated immediately if he drank alcohol or had his girlfriend stay with him. Pt stated he is okay preparing pureed foods for himself. PT worked with him to make sure he could manage stairs. Pt is also okay with his girlfreind not staying with him as long as he can visit with her. Pt's main problem was with not drinking. He states that he is able to not drink at [facility] because he has access to television. He states that if his respite place doesn't have tv he will be bored and likely start drinking. Spoke with Jovani Linder at [facility] ([phone]) to let him know pt's concerns so that we can determine whether this plan is safe and viable. Jovani stated that pt would need to go the [facility] crisis management Center at [place] and from there, they will evaluate him for placement in the respite apt. He will have his own room at the apt with a shared bathroom but no TV. It is likely that pt will refuse this DC plan and [facility] will not admite him anyway if he indicates he may drink again. Faxed 6 more referrals for a LTC Medicaid bed to facilities in the [place] area. Four have responded with a no. C/M will discuss with and RN today. Date Signed: 06/30/2017 10:11 AM Electronically Signed By:Trinidad Underwood
== END 2017-07-01 12:32 | disposition home or self-care (01) | DRG 897 ==
LOC: EDUNIT# → F2N 22:50 → F1N 06-17 16:54
PROVIDERS: ADMIT Internal Medicine; ATTEND Internal Medicine
DX: F10.229 Alcohol dependence with intoxication, unspecified (principal); S02.609A Fracture of mandible, unspecified, initial encounter for closed fracture; E87.2 Acidosis; F10.239 Alcohol dependence with withdrawal, unspecified; D64.9 Anemia, unspecified; D69.6 Thrombocytopenia, unspecified; I10 Essential (primary) hypertension; F43.10 Post-traumatic stress disorder, unspecified; F41.9 Anxiety disorder, unspecified; G47.30 Sleep apnea, unspecified; E03.9 Hypothyroidism, unspecified; K70.30 Alcoholic cirrhosis of liver without ascites; Y90.8 Blood alcohol level of 240 mg/100 ml or more; W19.XXXA Unspecified fall, initial encounter; Z59.0 Homelessness; Z72.0 Tobacco use
CPT/HCPCS: 96365; 97110-GP; 97116-GP; 97162-GP; 97166-GO; 97530-GO; 97530-GP; 97535-GO; G0480; J0610; J0696; J1335; J1650; J2060; J3370; J3411; J3475; Q9967

== ENCOUNTER 2017-12-22 15:33 | Inpatient (IN) | payer MEDICAID ==
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
[2017-12-22] MEDS ORDERED: NS 1,000 ML IV ONE (15:45)
[2017-12-22 15:50] LABS: PLATELET COUNT 45 10^3/uL (150-400)
[2017-12-22 15:55] LABS: INR 1.43 (0.83-1.16); PROTIME(PATIENT) 17.6 SEC (12.0-15.0)
--- NOTE | 2017-12-22 16:08 | CPEKG ---
Heart Rate: 120 RR Interval: 500 P-R Interval: 132 QRSD Interval: 96 QT Interval: 332 QTC Interval: 470 P [place]: 51 QRS [place]: 89 T Wave [place]: 18 EKG Severity - BORDERLINE ECG - EKG Impression: SINUS TACHYCARDIA EKG Impression: CONSIDER RIGHT VENTRICULAR HYPERTROPHY EKG Impression: BORDERLINE INFERIOR Q WAVES Electronically Signed By: Kristian Young 22-Dec-2017 16:19:30
[2017-12-22] MEDS ORDERED: NS 2,900 ML IV ONE (16:44)
--- NOTE | 2017-12-22 16:44 | ASMTLACE ---
[facility] # of Emergency department Answers: 1-2 visits in the last 6 months Social determinants Answers: History of substance abuse (ETOH, street drugs, prescription drugs, etc.) Homelessness (street, longterm) Mental health diagnosis (anxiety, depression, pers onality disorders, etc.) Score: 10 Date Signed: 12/22/2017 04:44 PM Electronically Signed By:Jie Tan RN
[2017-12-22] MEDS ORDERED: AZITHROMYCIN IV 500 MG in D5W 250 ML IV ONE (16:45)
[2017-12-22] MEDS ORDERED: ONDANSETRON DISINTEGRATING 4 MG TAB PO PRN (17:09)
[2017-12-22] MEDS ORDERED: ONDANSETRON 4 MG/2 ML VIAL IVP PRN (17:09)
[2017-12-22] MEDS ORDERED: ONDANSETRON 4 MG/2 ML VIAL ONE (17:15)
[2017-12-22] MEDS ORDERED: ALTEPLASE 2 MG VIAL IVP PRN (17:24)
[2017-12-22] MEDS ORDERED: AZITHROMYCIN IV 500 MG in NS 250 ML IV ONE (17:30)
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
[2017-12-22] MEDS: NS 1,000 ML IV SCH (18:54)
[2017-12-22] MEDS: PIPERACILLIN/TAZO 3.375 GM/DEX 50 ML IV SCH (18:58)
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
[2017-12-22] MEDS: oxyCODONE IR 5 MG TAB PO PRN (22:21)
[2017-12-23] MEDS: PIPERACILLIN/TAZO 3.375 GM/DEX 50 ML IV SCH ×4 (00:25→17:27)
[2017-12-23] MEDS: oxyCODONE IR 5 MG TAB PO PRN ×4 (02:03→21:37)
[2017-12-23] MEDS: NS 1,000 ML IV SCH ×3 (02:07→17:27)
[2017-12-23 04:32] LABS: INR 1.54 (0.83-1.16); PROTIME(PATIENT) 18.6 SEC (12.0-15.0)
[2017-12-23 04:44] LABS: PLATELET COUNT 32 10^3/uL (150-400)
[2017-12-23] MEDS: ACETAMINOPHEN 325 MG TAB PO PRN ×3 (08:42→21:37)
[2017-12-23] MEDS: AZITHROMYCIN IV 500 MG in NS 250 ML IV SCH (08:42)
--- NOTE | 2017-12-23 09:48 | ASMTCASEMG ---
Living Arrangements What is your living Answers: With Spouse arrangement? Who do you live with? Type Of Residence What kind of residence do Answers: Apartment you live in? Discharge Plan Comments Coordination Status Comments Notes: Patient is a 47yo male with a hx of etoh and cirrhosis who was admitted for sepsis, acute hypoxic respiratory failure, pneumonia, alcoholic liver disease, and thrombocytopenia. Patient and his live in the [facility]. No therapies have been ordered at this time. Patient has been sick for some time. He may require Home Health support services at d/c. D/C plan TBD. CM will follow. Date Signed: 12/23/2017 09:47 AM Electronically Signed By:Yovana Rios LCSW
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
[2017-12-23] MEDS: PANTOPRAZOLE SODIUM 40 MG TAB PO SCH (13:26)
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
[2017-12-24] MEDS: PIPERACILLIN/TAZO 3.375 GM/DEX 50 ML IV SCH ×4 (00:16→18:49)
[2017-12-24] MEDS: oxyCODONE IR 5 MG TAB PO PRN ×3 (03:05→22:03)
[2017-12-24] MEDS: NS 1,000 ML IV SCH (06:00)
[2017-12-24] MEDS: ACETAMINOPHEN 325 MG TAB PO PRN (06:39)
[2017-12-24 06:56] LABS: PLATELET COUNT 32 10^3/uL (150-400)
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
[2017-12-24] MEDS: PANTOPRAZOLE SODIUM 40 MG TAB PO SCH (08:53)
[2017-12-24] MEDS: AZITHROMYCIN IV 500 MG in NS 250 ML IV SCH (08:54)
[2017-12-24] MEDS ORDERED: THIAMINE HCL 500 MG in NS 500 ML IV SCH (09:00)
[2017-12-24] MEDS ORDERED: FUROSEMIDE 20 MG/2 ML VIAL IVP ONE (11:01)
[2017-12-24] MEDS ORDERED: FUROSEMIDE 20 MG/2 ML VIAL ONE (14:22)
--- NOTE | 2017-12-24 16:17 | ECHO ---
[email or web address] [address] [address] Main: [phone] Fax: [email or web address] Echocardiogram Name: HERMELINDA GUNN MR#: [id number] Study Date: 12/24/2017 Study Time: 01:20 PM Date of : 1970 Age: 47 year(s) Height: 182.9 cm (72 in.) Weight: 106.6 kg (235 lb.) BSA: 2.28 m2 Gender: Male Examination: Echo Indication: Heart failuare/strep bacteremia Image Quality: Contrast: Requested by: Mary Bray BP: 124 mmHg/75 mmHg Heart Rate: Rhythm: Indication: Heart failuare/strep bacteremia Procedure Staff Test Lab Technician: Nisa Feng RDCS Reading Physician: Errol Moreira MD Requesting Provider: Conclusions: Normal global systolic LV function. The ejection fraction is estimated to be 60-65 %. Normal diastolic LV function. LV septal motion consistent with conduction abnormlity vs. right sided volume overload.. Mildly dilated right ventricle. The mitral valve is normal in appearance and function. Mild mitral valve regurgitation is present. The aortic valve is normal in appearance and function. The tricuspid valve is normal in appearance and function. Mild tricuspid regurgitation is present. The pulmonary artery pressure is normal. No pericardial effusion. Technically difficult study.. There is no previous echocardiogram for comparison. Measurements: Chambers Valvular Assessment AV/MV Valvular Assessment TV/PV Normal Normal Normal Name Value Range Name Value Range Name Value Range Ao Ana Rosa (MM): 3.7 cm (2.2 cm-3.7 AV meanP mmHg ( - ) TR Vmax: 2.48 mm/s ( - ) cm) MV E Vmax: 0.91 m/s ( - ) TR PGmax: 25 mmHg ( - ) IVSd (2D): 0.4 cm (0.6 cm-1.1 MV A Vmax: 0.64 m/s ( - ) syst. PAP: 30 mmHg ( - ) cm) MV E/A: 1.42 ( - ) LVDd (2D): 6.0 cm (4.2 cm-5.9 cm) LVDs (2D): 4.0 cm (2.1 cm-4 cm) LVPWd (2D): 0.8 cm (0.6 cm-1 cm) LVEF (2D): 61 (>=54 %) Patient: HERMELINDA GUNN Study Date: 12/24/2017 Page 1 of 2 01:20 PM EF Range: 60-65 % Continued Measurements: Chambers Valvular Assessment AV/MV Valvular Assessment TV/PV Name Value Name Value Name Value LADs: 4.0 cm MV E/E' Septal: 10.80 CVP (est.): 5 mmHg MV E/E' Lateral: 10.10 Findings: Left Ventricle: Mildly dilated left ventricle. No LV hypertrophy. Normal global systolic LV function. The ejection fraction is estimated to be 60-65 %. Normal diastolic LV function. LV septal motion consistent with conduction abnormlity vs. right sided volume overload.. Right Ventricle: Mildly dilated right ventricle. Left Atrium: The left atrium is normal in size. Right Atrium: The right atrium is borderline dilated. Mitral Valve: The mitral valve is normal in appearance and function. Mild mitral valve regurgitation is present. Aortic Valve: The aortic valve is normal in appearance and function. Tricuspid Valve: The tricuspid valve is normal in appearance and function. Mild tricuspid regurgitation is present. The pulmonary artery pressure is normal. Pulmonic Valve: The pulmonic valve is normal in appearance and function. Aorta: The aorta is normal. Pericardium: No pericardial effusion. Exam Comments: Technically difficult study.. (No Signature Object) Patient: HERMELINDA GUNN Study Date: 12/24/2017 Page 2 of 2 01:20 PM [id number]
[2017-12-24] MEDS: LORazepam 2 MG/ML INJ IVP PRN (17:15)
[2017-12-24] MEDS ORDERED: IOPAMIDOL (ISOVUE 370) 100 ML BTL IV ONE (17:51)
[2017-12-24] MEDS ORDERED: FUROSEMIDE 40 MG/4 ML VIAL IVP ONE (18:19)
[2017-12-25] MEDS: PIPERACILLIN/TAZO 3.375 GM/DEX 50 ML IV SCH ×2 (00:39→05:36)
[2017-12-25] MEDS: ACETAMINOPHEN 325 MG TAB PO PRN (05:36)
[2017-12-25] MEDS: oxyCODONE IR 5 MG TAB PO PRN (05:36)
[2017-12-25 06:12] LABS: PLATELET COUNT 35 10^3/uL (150-400)
[2017-12-25] MEDS ORDERED: PROTOCOL POTASSIUM 1 DOSE MISC PRN (07:29)
[2017-12-25] MEDS ORDERED: POTASSIUM CL 20 MEQ TAB PO ONE ×2 (07:29→16:00)
[2017-12-25] MEDS: PANTOPRAZOLE SODIUM 40 MG TAB PO SCH (08:14)
[2017-12-25] MEDS: LORazepam 2 MG/ML INJ IVP PRN ×2 (08:25→17:03)
[2017-12-25] MEDS ORDERED: chlordiazePOXIDE 25 MG CAP PO PRN (10:12)
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
[2017-12-25] MEDS: FUROSEMIDE 40 MG/4 ML VIAL IVP SCH ×2 (13:24→18:43)
[2017-12-25] MEDS: AMPICILLIN/SULBACTAM 3 GM in NS 100 ML IV SCH ×2 (13:45→17:57)
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
[2017-12-25] MEDS: chlordiazePOXIDE 25 MG CAP PO SCH ×2 (15:54→21:57)
[2017-12-25] MEDS ORDERED: POTASSIUM CL 10 MEQ TAB PO ONE (18:37)
[2017-12-26] MEDS: AMPICILLIN/SULBACTAM 3 GM in NS 100 ML IV SCH ×2 (00:09→05:55)
[2017-12-26] MEDS: LORazepam 2 MG/ML INJ IVP PRN ×2 (00:26→07:46)
[2017-12-26 05:24] LABS: PLATELET COUNT 49 10^3/uL (150-400)
[2017-12-26] MEDS ORDERED: POTASSIUM CL 20 MEQ TAB PO ONE ×2 (06:54→22:00)
[2017-12-26] MEDS: ACETAMINOPHEN 325 MG TAB PO PRN ×2 (07:45→15:01)
[2017-12-26] MEDS: PANTOPRAZOLE SODIUM 40 MG TAB PO SCH (07:45)
[2017-12-26] MEDS: FUROSEMIDE 40 MG/4 ML VIAL IVP SCH ×2 (07:46→15:02)
[2017-12-26] MEDS: chlordiazePOXIDE 25 MG CAP PO SCH (07:46)
[2017-12-26] MEDS ORDERED: POTASSIUM CL 10 MEQ TAB PO ONE ×2 (09:08→17:46)
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
[2017-12-26] MEDS: AMPICILLIN/SULBACTAM 3 GM VIAL IV SCH ×2 (12:05→17:11)
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
[2017-12-26] MEDS ORDERED: PROTOCOL MAGNESIUM 1 DOSE IV PRN (12:46)
[2017-12-26] MEDS ORDERED: MAGNESIUM SULF 2 GM/WATER 50 ML IV ONE (12:49)
[2017-12-26] MEDS: THIAMINE HCL 100 MG TAB PO SCH (15:02)
[2017-12-26] MEDS: oxyCODONE IR 5 MG TAB PO PRN (15:03)
--- NOTE | 2017-12-26 15:15 | ASMTCMCOM ---
CM Note CM Note Notes: Spoke with patient today. He reports that he has a mother, and 5 adult children in [place], [place]. Reports that he came to [place] for Meth. Hasn't taken any Meth for awhile but drinks alcohol instead. Patient doesn't want to return to [place]. Stays at the retirement and his PCP is Renetta Monk at [facility]. Contacted [facility] and told them I felt patient could use a mental Hl[facility] provider for depression. [facility] reports that the [facility] is across the street, Debbie Root is the Director. Patient is on disability. When patient is closer to discharge CM needs to get an appt for him w/his PCP and [facility] and give him a bus pass. Date Signed: 12/26/2017 03:15 PM Electronically Signed By:Charity Lunsford LCSW
[2017-12-27] MEDS: AMPICILLIN/SULBACTAM 3 GM VIAL IV SCH ×4 (00:27→18:23)
[2017-12-27] MEDS: oxyCODONE IR 5 MG TAB PO PRN ×2 (01:10→09:37)
[2017-12-27] MEDS ORDERED: POTASSIUM CL 10 MEQ TAB PO ONE ×3 (07:25→21:45)
[2017-12-27] MEDS ORDERED: MAGNESIUM SULF 1 GM/DEXTROSE 100 ML IV ONE (09:02)
[2017-12-27] MEDS: FUROSEMIDE 40 MG/4 ML VIAL IVP SCH ×2 (09:20→15:23)
[2017-12-27] MEDS: THIAMINE HCL 100 MG TAB PO SCH (09:21)
[2017-12-27] MEDS: POTASSIUM CL 20 MEQ TAB PO SCH ×2 (09:21→21:42)
[2017-12-27] MEDS: PANTOPRAZOLE SODIUM 40 MG TAB PO SCH (09:21)
[2017-12-27] MEDS: LORazepam 1 MG TAB PO PRN (09:36)
--- NOTE | 2017-12-27 12:27 | ASMTCMCOM ---
CM Note CM Note Notes: CM met w/ pt for dispo planning. PT is recommending SNF. Awaiting recommendation from OT. Pt reports that he is uncertain if he is agreeable to the 30 day stay at this time. CM to check in tomorrow. Plan: TBD Date Signed: 12/27/2017 12:26 PM Electronically Signed By:AIRAM Dailey
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
[2017-12-28] MEDS: oxyCODONE IR 5 MG TAB PO PRN ×3 (00:13→08:28)
[2017-12-28] MEDS: AMPICILLIN/SULBACTAM 3 GM VIAL IV SCH ×4 (00:13→17:11)
[2017-12-28] MEDS ORDERED: MAGNESIUM SULF 1 GM/DEXTROSE 100 ML IV ONE (08:09)
[2017-12-28] MEDS: POTASSIUM CL 20 MEQ TAB PO SCH ×2 (08:29→20:00)
[2017-12-28] MEDS: THIAMINE HCL 100 MG TAB PO SCH (08:29)
[2017-12-28] MEDS: PANTOPRAZOLE SODIUM 40 MG TAB PO SCH (08:29)
[2017-12-28] MEDS: FUROSEMIDE 40 MG/4 ML VIAL IVP SCH ×2 (08:29→14:15)
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
--- NOTE | 2017-12-28 17:04 | ASMTCMCOM ---
CM Note CM Note Notes: PT and OT recommending SNF placement. Pt. w/ Medicaid. SWer met w/ Pt. at bedside. He is interested in trying to get into a chcf. Is willing to stay 30-days as required. Mentioned that he didn't want to go back to [place]. SWer completed [facility]TC 100 and faxed to [facility] today. Fax attached completed ULTC 100 in [employer]. Sent referrals in [employer]. Please see SNF referrals. Per RN, Pt. currently on IV antibiotics and end-phase of CIWA protocol. Per RN, Pt. is struggling with ADLs. Note: Pt's PCP is Renetta Coleman at [facility]. Per past notes, Pt. needs referral to [facility] at d/c. Note: Pt. does NOT live in [facility] housing anymore. States he and [facility] mutually agreed for him to leave. Pt. has been homeless since leaving [facility]. Date Signed: 12/28/2017 05:04 PM Electronically Signed By:Jacqueline Briones LCSW
[2017-12-28] MEDS ORDERED: POTASSIUM CL 10 MEQ TAB PO ONE (19:13)
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
[2017-12-29] MEDS: LORazepam 1 MG TAB PO PRN (00:27)
[2017-12-29] MEDS: AMPICILLIN/SULBACTAM 3 GM VIAL IV SCH ×3 (00:27→11:59)
[2017-12-29 04:26] VITALS: RESP 18
[2017-12-29] MEDS: POTASSIUM CL 20 MEQ TAB PO SCH (08:56)
[2017-12-29] MEDS: PANTOPRAZOLE SODIUM 40 MG TAB PO SCH (08:56)
[2017-12-29] MEDS: FUROSEMIDE 40 MG/4 ML VIAL IVP SCH (08:56)
[2017-12-29] MEDS: THIAMINE HCL 100 MG TAB PO SCH (08:57)
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
[2017-12-29] MEDS: ACETAMINOPHEN 325 MG TAB PO PRN (10:09)
[2017-12-29 12:08] VITALS: BP 112/74; PULSE 92; TEMP 99.2; O2SAT 92
--- NOTE | 2017-12-29 15:52 | ASMTLACE ---
LACE Length of stay for Answers: 7-13 days current admission Acuity / Level of Answers: Yes Care: Did the patient have an inpatient admission? Comorbidities - select Answers: Moderate or severe liver all that apply or renal disease # of Emergency department Answers: 1-2 visits in the last 6 months Social determinants Answers: History of substance abuse (ETOH, street drugs, prescription drugs, etc.) Homelessness (street, fpc) Lack of community resources and/or lack of social support (no pcp, lives alone, transportation, alannah d) Score: 23 Date Signed: 12/29/2017 03:51 PM Electronically Signed By:Jacqueline Briones LCSW
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
--- NOTE | 2017-12-29 16:54 | GDS ---
[f rep st] DISCHARGE SUMMARY Please note the patient left against medical advice. DISCHARGE DIAGNOSES: 1. Sepsis. 2. Presumed aspiration pneumonia. 3. Streptococcus dysgalactiae bacteremia. 4. Alcoholism with alcoholic liver disease. 5. Alcohol dependence. Please see admission history and physical by Dr. Jhon Cerna. The patient presented obtunded with sepsis. He was able to be managed without mechanical ventilation, although it was awfully close for the first 24 hours. The patient was doing well today I rounded on the patient and he seemed well. He was able to transfer from the bed to the chair with a walker. I was subsequently informed by the nurse that he had pulled out his PICC line and left. He was not provided with antibiotics as I was n ot given the chance. /[id number]/MODL
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
== END 2017-12-29 15:47 | disposition left against medical advice (07) | DRG 871 ==
LOC: EDUNIT# → F2N 18:30 → F3E 12-26 18:18
PROVIDERS: ADMIT Family Medicine; ATTEND Family Medicine
PROC: 02HV33Z Insertion of Infusion Device into Superior Vena Cava, Percutaneous Approach (ICD-10-PCS; principal; 2017-12-22)
DX: A40.8 Other streptococcal sepsis (principal); J69.0 Pneumonitis due to inhalation of food and vomit; F10.229 Alcohol dependence with intoxication, unspecified; K70.30 Alcoholic cirrhosis of liver without ascites; E86.9 Volume depletion, unspecified; Y90.8 Blood alcohol level of 240 mg/100 ml or more; Z59.0 Homelessness
CPT/HCPCS: 92526-GN; 92610-GN; 96374; 97110-GP; 97116-GP; 97161-GP; 97166-GO; 97530-GP; 97535-GO; C1751; G0480; J0295; J0456; J0696; J1940; J2060; J2405; J2543; J3475; Q9967

== ENCOUNTER 2017-12-30 12:36 | Inpatient (IN) | payer MEDICAID ==
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
[2017-12-30 14:06] LABS: PLATELET COUNT 204 10^3/uL (150-400)
[2017-12-30 14:30] LABS: INR 1.37 (0.83-1.16)
[2017-12-30] MEDS ORDERED: NS 3,100 ML IV ONE (14:35)
[2017-12-30] MEDS ORDERED: AMPICILLIN/SULBACTAM 3 GM VIAL IV ONE (14:44)
[2017-12-30] MEDS ORDERED: LORazepam 2 MG/ML INJ IVP PRN (15:32)
[2017-12-30] MEDS ORDERED: ONDANSETRON DISINTEGRATING 4 MG TAB PO PRN (15:32)
[2017-12-30] MEDS ORDERED: ONDANSETRON 4 MG/2 ML VIAL IVP PRN (15:32)
[2017-12-30] MEDS ORDERED: LORazepam 1 MG TAB PO PRN (15:32)
--- NOTE | 2017-12-30 16:23 | GHP ---
[f rep st] HISTORY AND PHYSICAL DATE OF ADMISSION: 12/30/2017 CHIEF COMPLAINT: Shortness of breath. HISTORY OF PRESENT ILLNESS: The patient is a 47-year-old male, who is well known to our service and just left the hospital against medical advice yesterday , while being treated for aspiration pneumonia and strep dysgalactiae bacteremia. He states he slept at the homeless correction last night and drank some vodka. Today, he noted that he still felt short of breath and returned to the emergency department. He denies fevers or chills. He denies cough. His shortness of breath is worse with exertion. He also complains of a dull ache in his chest. He is readmitted to the hospital to continue antibiotic therapy and ongoing treatment, which was abruptly discontinued when he pulled out his PICC line and left the hospital yesterday against medical advice. PAST MEDICAL HISTORY: 1. Alcohol abuse. 2. History of alcohol withdrawal. 3. Alcoholic liver disease. 4. Thrombocytopenia. 5. Homelessness. 6. Recent aspiration pneumonia. 7. Recent strep bacteremia. MEDICATIONS: Please see [employer] for completed outpatient medication list. ALLERGIES: No known drug allergies. SOCIAL HISTORY: The patient is homeless. He drinks vodka and has had multiple hospitalizations for alcohol-related problems, as well as withdrawal. He denies IV drug use. FAMILY HISTORY: Positive for alcoholism in many relatives. REVIEW OF SYSTEMS: A 10-point review of systems was performed and was negative except as per HPI. OBJECTIVE: VITAL SIGNS: Temperature 37 degrees, blood pressure 134/76, heart rate 81, respiratory rate 20, 97% on 2 L oxygen. GENERAL: Patient is awake, alert, oriented, in no acute distress. HEENT: Head is atraumatic, normocephalic. Pupils equal, round, and react to light. Extraocular muscles intact. Oropharynx clear. Mucous membranes are moist. NECK: Supple. There is no JVD. HEART: Regular rate and rhythm. LUNGS: Faint crackles in the left base, otherwise fairly clear to auscultation. ABDOMEN: Soft, nondistended , nontender with normoactive bowel tones. EXTREMITIES: Trace to 1+ bilateral lower extremity edema. NEUROLOGIC: Grossly nonfocal. LABORATORY DATA: CBC reveals a normal white blood cell count of 7.8, hemoglobin 10.1, which is stable. INR 1.37. Lactic acid 2.9. Chemistry panel reveals normal electrolytes, slightly elevated anion gap of 17, though normal CO2 of 24, total bilirubin 3.9, conjugated 2.4, unconjugated 1.5. This is also stable from his baseline. Ethyl alcohol level is 105. BNP is pending. Chest x-ray is personally reviewed and interpreted. This appears similar to 3 days prior with peribronchial thickening. Ground-glass pulmonary opacities appear nearly resolved. No new pneumonia or pulmonary edema is noted. ASSESSMENT AND PLAN: Mr. Bradshaw is a 47-year-old male, with a history of alcohol abuse, who returns to the hospital 1 day after leaving against medical advice with shortness of shortness of breath. 1. Acute hypoxemic respiratory failure. He was previously treated for aspiration pneumonia and volume overload. His infiltrates have improved. He does not appear significantly volume overloaded on exam today. He is currently requiring 2 L. He did receive 3 L normal saline fluid bolus in the emergency department and will likely need to resume Lasix tomorrow given his recent treatment for volume overload. In the meantime, we will can continue his Unasyn , wean his oxygen as able. 2. Streptococcus dysgalactiae bacteremia. This is suspected oral organism in the setting of presumed aspiration pneumonia. Will continue his IV Unasyn. This is day 7, noting he missed 1 day of treatment. ID recommends treatment through January 02. He could be transitioned to ceftriaxone if he does not complete his treatment course in the hospital. The patient removed his PICC line himself yesterday. Repeat blood cultures are pending. I will defer replacing his PICC line for now. 3. Alcohol abuse. He presents with a serum ethanol level of 105 and admits to drinking last night after he left the hospital. He did have mild to moderate withdrawal during his recent hospitalization. We will place him on CIWA protocol. 4. Alcoholic cirrhosis. His elevated liver enzymes appear to be at baseline. 5. History of thrombocytopenia, likely related to alcohol abuse. His platelets on arrival today were 204. I think he is slightly hemoconcentrated as he states he has not eaten anything since he left the hospital yesterday other than vodka. Will continue to follow. 6. Lactic acidosis. I do not think he has recurrent sepsis. He may actually be a bit volume depleted. He just received 3 L of saline. Will recheck his lactate now and anticipate it to trend down. 7. Deep venous thrombosis prophylaxis. Will plan for Lovenox with close attention to his platelets. CODE STATUS: Patient is full code. DISPOSITION: Patient is admitted to inpatient status. I anticipate greater than 48 hours hospitalization for ongoing management of his strep bacteremia and recent aspiration pneumonia. /[id number]/MODL MTDD
--- NOTE | 2017-12-30 16:26 | CPEKG ---
Heart Rate: 81 RR Interval: 741 P-R Interval: 144 QRSD Interval: 100 QT Interval: 456 QTC Interval: 530 P [place]: 52 QRS [place]: 60 T Wave [place]: 20 EKG Severity - ABNORMAL ECG - EKG Impression: SINUS RHYTHM EKG Impression: PROLONGED QT INTERVAL Electronically Signed By: Kristian Young 30-Dec-2017 16:49:12
--- NOTE | 2017-12-30 16:47 | PDMN ---
Medical Necessity Medical necessity: C/M review: est. > 2 MN LOS for eval and TX of acute hypoxic respiratory failure, streptococcus dysgalactiae bacteremia, ethanol level 105, lactic acidosis, requiring ongoing IV Unasyn, CIWA protocol, frequent vital sign monitoring, pulse oxiimetry, supplemental O2, comorbid recent hospitalization for for aspiration pneumonia and strep dysgalactiae bacteremia, patient left against medical advice 12/29/2017, alcohol abuse, alcoholic cirrhosis, history or thrombocytopenia likely related to alcohol abuse , history of alcohol withdrawal homelessness per H/P.
[2017-12-30] MEDS: AMPICILLIN/SULBACTAM 3 GM VIAL IV SCH ×2 (20:18→23:49)
[2017-12-30] MEDS: ACETAMINOPHEN 325 MG TAB PO PRN (22:39)
[2017-12-31] MEDS: AMPICILLIN/SULBACTAM 3 GM VIAL IV SCH ×4 (05:03→23:32)
[2017-12-31] MEDS: ENOXAPARIN 40 MG/0.4 ML SYR SC SCH (07:50)
[2017-12-31] MEDS: ACETAMINOPHEN 325 MG TAB PO PRN ×2 (07:51→19:23)
[2017-12-31] MEDS ORDERED: FUROSEMIDE 40 MG TAB PO SCH (09:00)
--- NOTE | 2017-12-31 10:23 | ASMTCMCOM ---
CM Note CM Note Notes: Pt has returned after recently leaving A. He stayed at the group home and drank vodka but came back because he was still short of breath. He is currently on CIWA protocol, dc needs TBD, likely dc to group home when medically stable. Last admission pt was worked up for SNF, ultc-100 was done and approved but pt left before CM could get him to a facility. DC Plan: TBD Date Signed: 12/31/2017 10:22 AM Electronically Signed By:Raegan Espinal RN
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
[2017-12-31 19:47] VITALS: RESP 18
[2018-01-01] MEDS ORDERED: AMOXICILLIN/CLAVULANATE POT 875/125 MG TAB PO SCH
[2018-01-01] MEDS: AMPICILLIN/SULBACTAM 3 GM VIAL IV SCH (05:17)
[2018-01-01] MEDS: ACETAMINOPHEN 325 MG TAB PO PRN (08:17)
[2018-01-01] MEDS: ENOXAPARIN 40 MG/0.4 ML SYR SC SCH (08:18)
[2018-01-01 08:26] VITALS: BP 101/53; PULSE 83; TEMP 98; O2SAT 94
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
--- NOTE | 2018-01-01 09:49 | GDS ---
[f rep st] DISCHARGE SUMMARY DISCHARGE DIAGNOSES: 1. Pneumonia. 2. Alcoholism. 3. Chronically elevated troponin. 4. History of alcohol withdrawal. 5. Alcoholic liver disease. 6. Strep bacteremia. HOSPITAL COURSE: Please see admission history and physical by Dr. Mary Bray. The patient re-pre sented after having been admitted on December 22 with an aspiration pneumonia and sepsis. He left AMA fr om that; he returned. He was afebrile. His blood cultures were negative. He was initiated on Unasy n for Strep intermedius bacteremia. The patient is afebrile on room air. He is discharged home to [facility] a course of antibiotics with Augmentin. Patient noted to have positive troponin of about 0.19. He has had normal echo. He denies anginal sy mptoms or chest pains at the time of presentation. He does not have a pulmonary embolism. I reviewe d prior records and this is a chronic finding for him. The chronic finding being, his elevated tropo yannick. I think, given the patient's severe alcoholism and medical noncompliance, further pursuance of potent ial coronary intervention is not safe, given the fact that he is almost certain to not take dual anti platelet therapy. /[id number]/MODL
--- NOTE | 2018-01-01 18:01 | ASMTLACE ---
MAXE Length of stay for Answers: 2 days current admission Acuity / Level of Answers: Yes Care: Did the patient have an inpatient admission? Comorbidities - select Answers: Moderate or severe liver all that apply or renal disease # of Emergency department Answers: 3-4 visits in the last 6 months Social determinants Answers: History of substance abuse (ETOH, street drugs, prescription drugs, etc.) Homelessness (street, group home) Score: 18 Date Signed: 01/01/2018 09:53 AM Electronically Signed By:Radha Garza RN
[2018-01-02] MEDS ORDERED: THIAMINE HCL 100 MG TAB PO SCH (15:32)
--- NOTE | 2018-01-05 11:38 | PQFORM ---
PHYSICIAN QUERY FORM Needs Your Response This query form is being sent to you to assure this patient record is coded properly. Please respond to the question below: HOUSEHOLD MANAGER QUESTION: Dr. Cerna, The diagnosis of Acute Respiratory Failure is documented in the H&P and progress notes dated 12/30/17-01/01/18. Would this be appropriate as an additional diagnosis in the Discharge Summary? X Yes No Other Clinically undetermined Thank you, Leti Garcias PROJECT SCHEDULER w# [phone] INSTRUCTIONS FOR RESPONSE: Answer question by clicking on the "Edit Document" button. Move cursor to area below the stars. When complete, hit "Save." Click on the "Sign" button, then click "Sign" again. Type in your PIN and hit "Enter." MTDD
== END 2018-01-01 10:27 | disposition home or self-care (01) | DRG 177 ==
LOC: EDUNIT# → F3E 16:14
PROVIDERS: ADMIT Hospitalist; ATTEND Internal Medicine
DX: J69.0 Pneumonitis due to inhalation of food and vomit (principal); J96.01 Acute respiratory failure with hypoxia; B95.4 Other streptococcus as the cause of diseases classified elsewhere; E87.2 Acidosis; F10.229 Alcohol dependence with intoxication, unspecified; K70.30 Alcoholic cirrhosis of liver without ascites; R79.89 Other specified abnormal findings of blood chemistry; Y90.5 Blood alcohol level of 100-119 mg/100 ml; D69.59 Other secondary thrombocytopenia; F17.200 Nicotine dependence, unspecified, uncomplicated; Z91.14 Patient's other noncompliance with medication regimen; Z59.0 Homelessness
CPT/HCPCS: 96374; 97116-GP; 97161-GP; G0480; J0295; J1650; J2060

== ENCOUNTER 2018-01-02 19:11 | Emergency (ER) | payer MEDICAID ==
--- NOTE | 2018-01-02 19:20 | EDPHY ---
H & P Time Seen by Provider: 01/02/18 19:20 HPI/ROS: CHIEF COMPLAINT: I can't breathe right HISTORY OF PRESENT ILLNESS: This patient is a 47 y/o male with alcoholism complaining of trouble breathing. He was recently admitted for aspiration pneumonia and sepsis, d/c'd 12/30/17, three days ago on Augmentin. Since discharge, he has been staying on the streets and has started to drink excessive Etoh again. Today, he went to the [facility] around 2:30pm and when he was walking out, he almost fell. He admits to excessive etoh today, and thinks that this is the reason for the unsteadiness. He states "I can't breathe right", and became concerned regarding these events. The cough has nearly resolved and he denies fever. He c/o chest pain to EMS, though doesn't answer my questions about cp now. No fever, vomiting, diarrhea, urinary complaints, or other associated symptoms. REVIEW OF SYSTEMS: A 10 point review of systems was performed and is negative with the exception of the elements mentioned in the history of present illness. Past Medical/Surgical History: Alcohol abuse. History of alcohol withdrawal. Alcoholic liver disease. Thrombocytopenia. Prior medical records reviewed including admission 12/22/17 and 12/30/17 for aspiration pneumonia and sepsis. Social History: Homeless. History of alcohol abuse with multiple hospitalizations for related problems. No IV drug use. Smoking Status: Current every day smoker Physical Exam: General Appearance: Drowsy, slurred speech Eyes: Pupils equal and round, no conjunctival pallor ENT, Mouth: Mucous membranes moist Neck: Normal inspection Respiratory: normal RR, lungs are clear to auscultation Cardiovascular: Regular rate and rhythm Gastrointestinal: Abdomen is soft and non-tender Neurological: drowsy, nonfocal exam Skin: Warm and dry Extremities: Nontender, no pedal edema Psychiatric: flat affect Constitutional: Initial Vital Signs Temperature (C) 36.9 C 01/02/18 19:25 Heart Rate 86 01/02/18 19:25 Respiratory Rate 20 01/02/18 19:25 Blood Pressure 124/85 H 01/02/18 19:25 O2 Sat (%) 100 01/02/18 19:25 O2 Delivery Mode Room Air Allergies/Adverse Reactions: No Known Allergies Allergy (Verified 01/02/18 19:25) Home Medications: Medication Instructions Recorded Amoxicillin/Clavulanate Pot 875 mg PO BID #10 tab 01/01/18 [Augmentin 875 MG TAB (*)] Medical Decision Making - Diagnostics EKG Interpretation: EKG interpreted by me reveals normal sinus rhythm, rate 89, no ST/T changes. Interpretation: normal EKG ED Course/Re-evaluation: 47 y/o male presents with alcohol intoxication and a concern about his breathing. Oxygen saturation and cardiopulm exam are normal. stat EKG reveals no evidence of ischemia or dysrhythmia. No indication for CXR today. Reassured pt that exam is normal and there is no evidence of worsening pneumonia. He agrees to be discharged to the [facility] for assistance in alcohol recovery. Plan to discharge in good condition. Return precautions discussed. He is comfortable with this plan. Differential Diagnosis: includes though not limited to pneumonia, ACS, PE, pulm edema, bronchospasm. Departure - Departure Disposition: Home, Routine, Self-Care Clinical Impression: Alcohol intoxication Qualifiers: Complication of substance-induced condition: uncomplicated Qualified Code(s): F10.920 - Alcohol use, unspecified with intoxication, uncomplicated Condition: Good Instructions: Alcohol Intoxication (ED) Additional Instructions: Please proceed to the [facility] for assistance in alcohol recovery. Return to the emergency department for fever, persistent vomiting, or other worsening of condition. Referrals: [facility] Detox 24 Hours [Outside] - As per Instructions Report Scribed for: Kyra Jaeger Report Scribed by: Chanelle Keller Date of Report: 01/02/18 Time of Report: 19:21 Physician Review and Approval Statement: 01/02/18 19:21 Portions of this note were transcribed by a medical dosimetrist. I personally performed a history, physical exam, medical decision making, and confirmed accuracy of information the transcribed note.
--- NOTE | 2018-01-02 19:23 | CPEKG ---
Heart Rate: 89 RR Interval: 674 P-R Interval: 144 QRSD Interval: 102 QT Interval: 432 QTC Interval: 526 P [place]: 50 QRS [place]: 56 T Wave [place]: 28 EKG Severity - ABNORMAL ECG - EKG Impression: SINUS RHYTHM EKG Impression: BORDERLINE INFERIOR Q WAVES EKG Impression: PROLONGED QT INTERVAL Electronically Signed By: Kyra Jaeger 02-Jan-2018 22:58:22
[2018-01-02 19:26] VITALS: BP 124/85; PULSE 86; TEMP 98.4
[2018-01-02 20:00] VITALS: RESP 18; O2SAT 92
== END 2018-01-02 19:48 | disposition home or self-care (01) ==
LOC: EDUNIT#
DX: F10.920 Alcohol use, unspecified with intoxication, uncomplicated (principal); F17.200 Nicotine dependence, unspecified, uncomplicated

== ENCOUNTER 2018-01-09 23:12 | Emergency (ER) | payer MEDICAID ==
--- NOTE | 2018-01-09 23:28 | EDPHY ---
H & P Stated Complaint: liver pain Time Seen by Provider: 01/09/18 23:15 HPI/ROS: HPI The patient presents brought in by police for medical clearance for snf. He has been complaining of pain in his liver and kidneys to the police. He has been drinking alcohol over the last several days and yesterday vomited though has not had any vomiting today. He said he has had this pain before any feels in his right side, it is constant and moderate in severity. He was admitted earlier this month to the hospital for aspiration pneumonia and sepsis. REVIEW OF SYSTEMS Constitutional: No fever, no chills. Eyes: No discharge. ENT: No sore throat. Cardiovascular: No chest pain, no palpitations. Respiratory: No cough, no shortness of breath. Gastrointestinal: See HPI Genitourinary: No hematuria. Musculoskeletal: No back pain. Skin: No rashes. Neurological: No headache. PMHx: Chronic alcohol abuse, history of alcoholic cirrhosis, recent admission for pneumonia Soc Hx: Homeless PHYSICAL General Appearance: Alert, no distress Eyes: Pupils equal and round no pallor or injection ENT, Mouth: Mucous membranes moist Respiratory: There are no retractions, lungs are clear to auscultation Cardiovascular: Regular rate and rhythm Gastrointestinal: Abdomen is soft with mild tenderness in the epigastrium, no masses, bowel sounds normal Neurological: A&O, moves all extremities Skin: Warm and dry, no rashes Musculoskeletal: Neck is supple non tender Extremities: symmetrical, full range of motion Psychiatric: Patient is oriented X 3, there is no agitation Source: Patient, Police Exam Limitations: No limitations - Personal History Tetanus Vaccine Date: 2014 - Medical/Surgical History Hx Asthma: No Hx Chronic Respiratory Disease: No Hx Diabetes: No Hx Cardiac Disease: No Hx Renal Disease: Yes Hx Cirrhosis: Yes Hx Alcoholism: Yes Hx HIV/AIDS: No Hx Splenectomy or Spleen Trauma: No Other PMH: anxiety, ptsd, htn, Liver failure, alcoholism, sleep apnea, hypothyroidism, kidney disease, R chronic shoulder pain, claustrophobia. - Social History Smoking Status: Current every day smoker Constitutional: Initial Vital Signs Temperature (C) 36.4 C 01/09/18 23:17 Heart Rate 95 01/09/18 23:17 Respiratory Rate 20 01/09/18 23:17 Blood Pressure 133/93 H 01/09/18 23:17 O2 Sat (%) 97 01/09/18 23:17 Allergies/Adverse Reactions: No Known Allergies Allergy (Verified 01/09/18 23:17) Home Medications: Medication Instructions Recorded Amoxicillin/Clavulanate Pot 875 mg PO BID #10 tab 01/01/18 [Augmentin 875 MG TAB (*)] Medical Decision Making Differential Diagnosis: 47-year-old male with history of chronic alcohol abuse and alcoholic hepatitis, homelessness, recent admission for aspiration pneumonia and sepsis, presents for medical clearance for snf with complaint of liver pain. On exam, he does have some epigastric tenderness. Differential diagnosis includes alcoholic gastritis, alcoholic hepatitis, pancreatitis, alcohol intoxication. In the emergency department, patient slept for most of his visit. Labs were checked and did reveal elevated liver tests on par with prior values consistent with alcoholic hepatitis. Lipase was normal. Patient's alcohol level was quite elevated. He has stable anemia. I feel he is suitable for discharge to snf as I doubt any serious pathology at this time though he is certainly at risk given his chronic alcohol abuse. He will be discharged with police. - Data Points Laboratory Results: Laboratory Results 01/09/18 23:45 01/09/18 23:45 01/09/18 01/09/18 23:45 23:45 WBC 4.76 10^3/uL 10^3/uL (3.80-9.50) RBC 4.47 10^6/uL 10^6/uL (4.40-6.38) Hgb 10.4 g/dL L g/dL (13.7-17.5) Hct 33.7 % L % (40.0-51.0) MCV 75.4 fL L fL (81.5-99.8) MCH 23.3 pg L pg (27.9-34.1) MCHC 30.9 g/dL L g/dL (32.4-36.7) RDW 23.6 % H % (11.5-15.2) Plt Count 212 10^3/uL 10^3/uL (150-400) MPV 10.2 fL fL (8.7-11.7) Neut % (Auto) 59.0 % % (39.3-74.2) Lymph % (Auto) 26.9 % % (15.0-45.0) Hendry % (Auto) 9.7 % % (4.5-13.0) Eos % (Auto) 1.5 % % (0.6-7.6) Baso % (Auto) 2.5 % H % (0.3-1.7) Nucleat RBC Rel Count 0.0 % % (0.0-0.2) Absolute Neuts (auto) 2.81 10^3/uL 10^3/uL (1.70-6.50) Absolute Lymphs (auto) 1.28 10^3/uL 10^3/uL (1.00-3.00) Absolute Monos (auto) 0.46 10^3/uL 10^3/uL (0.30-0.80) Absolute Eos (auto) 0.07 10^3/uL 10^3/uL (0.03-0.40) Absolute Basos (auto) 0.12 10^3/uL H 10^3/uL (0.02-0.10) Absolute Nucleated RBC 0.00 10^3/uL 10^3/uL (0-0.01) Immature Gran % 0.4 % % (0.0-1.1) Immature Gran # 0.02 10^3/uL 10^3/uL (0.00-0.10) Platelet Estimate ADEQUATE (ADEQ) Polychromasia 1+ H Hypochromasia 2+ H Microcytic Cells 2+ H Oval Macrocytes 1+ H Schistocytes 1+ H Sodium 153 mEq/L H mEq/L (135-145) Potassium 4.5 mEq/L mEq/L (3.5-5.2) Chloride 113 mEq/L H mEq/L (97-110) Carbon Dioxide 21 mEq/l L mEq/l (22-31) Anion Gap 19 mEq/L H mEq/L (8-16) BUN 5 mg/dL L mg/dL (7-23) Creatinine 0.6 mg/dL L mg/dL (0.7-1.3) Estimated GFR > 60 Glucose 88 mg/dL mg/dL (70-100) Calcium 8.3 mg/dL L mg/dL (8.5-10.4) Total Bilirubin 2.9 mg/dL H mg/dL (0.1-1.4) Conjugated Bilirubin 1.8 mg/dL H mg/dL (0.0-0.5) Unconjugated Bilirubin 1.1 mg/dL mg/dL (0.0-1.1) AST 141 IU/L H IU/L (17-59) ALT 30 IU/L IU/L (21-72) Alkaline Phosphatase 270 IU/L H IU/L (38-126) Total Protein 8.4 g/dL H g/dL (6.3-8.2) Albumin 3.7 g/dL g/dL (3.5-5.0) Lipase 189 IU/L IU/L (23-300) Ethyl Alcohol 345 mg/dL H mg/dL (0-10) Departure - Departure Disposition: Law Enforcement/Court/Care Home Clinical Impression: Alcohol abuse, Medical clearance for incarceration Alcoholic intoxication Qualifiers: Complication of substance-induced condition: uncomplicated Qualified Code(s): F10.920 - Alcohol use, unspecified with intoxication, uncomplicated Alcoholic hepatitis Qualifiers: Ascites presence: without ascites Qualified Code(s): K70.10 - Alcoholic hepatitis without ascites Condition: Good Instructions: Alcoholic Hepatitis (ED) Additional Instructions: [facility]. You should return to the emergency department if your worse in any way. MEDICALLY CLEARED FOR [facility] Referrals: [facility],. [Clinic] - As per Instructions
[2018-01-09 23:30] VITALS: BP 133/93; PULSE 95; RESP 20; TEMP 97.5; O2SAT 97
[2018-01-10 00:08] LABS: PLATELET COUNT 212 10^3/uL (150-400)
== END 2018-01-10 01:06 ==
LOC: EEVIPCON 23:12
DX: Z02.89 Encounter for other administrative examinations (principal); F10.120 Alcohol abuse with intoxication, uncomplicated; K70.10 Alcoholic hepatitis without ascites; I10 Essential (primary) hypertension; F17.200 Nicotine dependence, unspecified, uncomplicated
CPT/HCPCS: G0480

== ENCOUNTER 2018-02-03 13:30 | Emergency (ER) | payer MEDICAID ==
[2018-02-03 14:38] VITALS: BP 164/148
[2018-02-03] MEDS ORDERED: NS 1,000 ML IV ONE (14:38)
--- NOTE | 2018-02-03 14:43 | EDPHY ---
H & P Stated Complaint: ETOH Source: Patient, EMS Exam Limitations: Intoxication - Personal History Tetanus Vaccine Date: 2014 - Medical/Surgical History Hx Asthma: No Hx Chronic Respiratory Disease: No Hx Diabetes: No Hx Cardiac Disease: No Hx Renal Disease: Yes Hx Cirrhosis: Yes Hx Alcoholism: Yes Hx HIV/AIDS: No Hx Splenectomy or Spleen Trauma: No Other PMH: anxiety, ptsd, htn, Liver failure, alcoholism, sleep apnea, hypothyroidism, kidney disease, R chronic shoulder pain, claustrophobia. - Family History Significant Family History: No pertinent family hx - Social History Smoking Status: Current every day smoker Alcohol Use: Heavy Drug Use: Marijuana Time Seen by Provider: 02/03/18 14:33 HPI/ROS: CHIEF COMPLAINT: Intoxication HISTORY OF PRESENT ILLNESS: The patient is a 47-year-old homeless alcoholic man well known to our department. He was brought in by EMS complaining of her us of breath and intoxication. The patient here is obviously intoxicated and has no complaints. He is however tachycardic at 130 . His oxygen saturations 93% on room air. He is afebrile. He denies, ingestants. He does not appear to be withdrawing and is somewhat somnolecent but easily aroused. REVIEW OF SYSTEMS: Unable to obtain secondary to condition EXAM: GENERAL: Disheveled HEAD: Atraumatic, normocephalic. EYES: Pupils equal round and reactive to light, extraocular movements intact, sclera anicteric, conjunctiva are normal. ENT: TMs normal, nares patent, oropharynx clear without exudates. Moist mucous membranes. NECK: Normal range of motion, supple without lymphadenopathy or JVD. LUNGS: Breath sounds clear to auscultation bilaterally and equal. No wheezes rales or rhonchi. HEART: Tachycardic without murmurs, rubs or gallops. ABDOMEN: Soft, nontender, normoactive bowel sounds. No guarding, no rebound. No masses appreciated. BACK: No CVA tenderness, no spinal tenderness, step-offs or deformities EXTREMITIES: Normal range of motion, no pitting or edema. No clubbing or cyanosis. NEUROLOGICAL: Cranial nerves II through XII grossly intact. Normal speech, normal gait. 5/5 strength, normal movement in all extremities, normal sensation PSYCH: Unable to assess, somnolecent but easily aroused. SKIN: Warm, dry, normal turgor, no visible rashes or lesions. (Seven Schaffer) Constitutional: Initial Vital Signs Temperature (C) 36.9 C 02/03/18 14:12 Heart Rate 127 H 02/03/18 14:12 Respiratory Rate 12 02/03/18 14:12 Blood Pressure 164/148 H 02/03/18 14:12 O2 Sat (%) 90 L 02/03/18 14:12 O2 Delivery Mode Room Air Allergies/Adverse Reactions: No Known Allergies Allergy (Verified 01/09/18 23:17) Home Medications: Medication Instructions Recorded Amoxicillin/Clavulanate Pot 875 mg PO BID #10 tab 01/01/18 [Augmentin 875 MG TAB (*)] Medical Decision Making - Diagnostics Imaging: I viewed and interpreted images myself (No focal infiltrates) ED Course/Re-evaluation: Patient's x-rays reassuring. He is being hydrated for his tachycardia. He is able to ambulate but is unsteady in the department. We will continue to a him to sober and treated with IV fluids. Care transferred to Dr. Ann Cabezas at 3: 00 p.m.. (Seven Schaffer) Differential Diagnosis: Partial list of the Differential diagnosis considered include but were not limited to; intoxication, withdrawal, dehydration, pneumonia, bronchitis, asthma and although unlikely based on the history and physical exam, I also considered sepsis, dissection, aneurysm. (Seven Schaffer) Other Provider: I assumed care of this patient at [address] Seven Schaffer. At this time, the patient is tachycardic and intoxicated. Patient was observed until 5:15 p.m.. He sobered appropriately. Repeat vital signs demonstrate a heart rate of 88. Patient's pulse ox is 91%. He has been up and ambulatory to the bathroom on 2 occasions without difficulty. We offered him discharged to the [facility]. He would prefer to be discharged to his own recognizance. I believe he is clinically sober to be discharged. (Ann Cabezas) - Data Points Laboratory Results: Laboratory Results 02/03/18 13:31 02/03/18 13:31 Medications Given: Discontinued Medications Sodium Chloride (Ns) 1,000 mls @ 0 mls/hr IV EDNOW ONE; Wide Open PRN Reason: Protocol Stop: 02/03/18 14:39 Last Admin: 02/03/18 15:00 Dose: 1,000 mls Departure - Departure Disposition: Home, Routine, Self-Care Clinical Impression: Alcohol abuse Alcoholic intoxication Qualifiers: Complication of substance-induced condition: uncomplicated Qualified Code(s): F10.920 - Alcohol use, unspecified with intoxication, uncomplicated Condition: Fair Instructions: Alcohol Intoxication (ED), Abuse of Alcohol (ED), Alcohol Dependence (ED) Additional Instructions: Do not drink alcohol in excessive quantities. Referrals: NONE *PRIMARY CARE P,. [Primary Care Provider] - As per Instructions
[2018-02-03 14:47] LABS: PLATELET COUNT 133 10^3/uL (150-400)
== END 2018-02-03 17:36 | disposition home or self-care (01) ==
LOC: EDUNIT#
DX: F10.120 Alcohol abuse with intoxication, uncomplicated (principal); I10 Essential (primary) hypertension; E86.9 Volume depletion, unspecified; F17.200 Nicotine dependence, unspecified, uncomplicated
CPT/HCPCS: G0480

== ENCOUNTER 2018-02-04 16:50 | Emergency (ER) | payer MEDICAID ==
--- NOTE | 2018-02-04 17:12 | EDPHY ---
General - History Smoking Status: Current every day smoker Time Seen by Provider: 02/04/18 16:57 Narrative: CHIEF COMPLAINT: Arc hold by police HISTORY OF PRESENT ILLNESS: Patient presents on an arc hold due to alcohol intoxication in public. Patient denies any complaints to me. He will converse with me minimally. He is reportedly brought here for public alcohol intoxication by [place] [employer]. No mention of trauma. He answers no to any questions regarding headache, neck pain, chest, back or abdominal pain. He appears to be in no acute distress and does have a strong odor of alcohol about him. REVIEW OF SYSTEMS: Ten systems reviewed and are negative unless otherwise noted in the HPI PCP: [facility] SPECIALISTS: Denies PAST MEDICAL HISTORY: Anxiety, PTSD, hypertension, cirrhosis, alcoholism, sleep apnea, hypothyroid, chronic pain SOCIAL HISTORY: Daily alcohol use. EXAMINATION General Appearance: Alert, no distress. Unkempt. Strong odor of alcohol about him Head: normocephalic, atraumatic Eyes: Opening eyes spontaneously. Tracking symmetrically. ENT, Mouth: Mucous membranes dry. Neck: Normal inspection, supple, non-tender Respiratory: Mild rhonchi. No crackles. No wheezing. No diminishment or distress Cardiovascular: Tachycardic rate of 110 beats per minute. Regular rhythm. No murmur Gastrointestinal: Abdomen is soft and nondistended Back: non-tender, no bony abnormalities Neurological: Alert. Strength is symmetric in all 4 limbs. Skin: Grossly intact for warm and dry. Unclean Extremities: Moving all 4 extremities spontaneously DIFFERENTIAL DIAGNOSES: Including but not limited to acute alcohol intoxication, alcohol abuse, dehydration MDM: 5:15 p.m. [facility] hold due to acute alcohol intoxication. The patient denies any complaints. He is conversing minimally bit opening his eyes spontaneously. He is moving his arms spontaneously symmetrically. He does appear to be somewhat dehydrated , thus I have ordered IV fluid resuscitation. He does not appear to be in any acute distress. Plan for discharge to the custody of police or [facility] when he is ambulatory. 6:00 p.m. At this time the patient is still not ambulatory. His alcohol level is nearly 300. Dr. Johnson will assume care the patient at this time. Please see his note for final disposition. SUPERVISION: Patient was independently examined, but I discussed the case with my secondary supervising physician Dr. Johnson ([facility]) I took over care of this patient at 5:00 p.m.. This patient is here for alcohol intoxication. He is on an arc hold. He is to be discharged to halfway with [place] [employer] when appropriately sober. 9:40 p.m., the patient is up and ambulatory under his own power. He is appropriate for discharge with [employer] police to halfway. His remaining emergency department course under my care has been uneventful. He was discharged in stable and improved condition with [place] [employer]. (Rod Johnson) - Objective Vital Signs: Initial Vital Signs Temperature (C) 36.8 C 02/04/18 16:50 Heart Rate 105 H 02/04/18 16:50 Respiratory Rate 16 02/04/18 16:50 Blood Pressure 134/90 H 02/04/18 16:50 O2 Sat (%) 95 02/04/18 16:50 O2 Delivery Mode Nasal Cannula O2 (L/minute) 2 Allergies/Adverse Reactions: No Known Allergies Allergy (Verified 01/09/18 23:17) Home Medications: Medication Instructions Recorded Amoxicillin/Clavulanate Pot 875 mg PO BID #10 tab 01/01/18 [Augmentin 875 MG TAB (*)] Laboratory Results: 02/04/18 16:55 Ethyl Alcohol 296 mg/dL H mg/dL (0-10) Medications Given: Discontinued Medications Sodium Chloride (Ns) 1,000 mls @ 0 mls/hr IV EDNOW ONE; Wide Open PRN Reason: Protocol Stop: 02/04/18 17:19 Last Admin: 02/04/18 17:30 Dose: 1,000 mls Departure - Departure Disposition: Law Enforcement/Court/Shelter Clinical Impression: Alcohol dependence Qualifiers: Substance use status: uncomplicated Qualified Code(s): F10.20 - Alcohol dependence, uncomplicated Alcohol intoxication Qualifiers: Complication of substance-induced condition: uncomplicated Qualified Code(s): F10.920 - Alcohol use, unspecified with intoxication, uncomplicated Condition: Good Instructions: Alcohol Intoxication (ED) Referrals: Patient,NotPresent [Unknown] - As per Instructions [facility],. [Clinic] - As per Instructions Stand Alone Forms: [facility]
[2018-02-04] MEDS ORDERED: NS 1,000 ML IV ONE (17:18)
[2018-02-04 22:00] VITALS: BP 122/87
== END 2018-02-04 21:45 ==
LOC: EDUNIT#
DX: F10.220 Alcohol dependence with intoxication, uncomplicated (principal); I10 Essential (primary) hypertension; F17.200 Nicotine dependence, unspecified, uncomplicated; E86.9 Volume depletion, unspecified
CPT/HCPCS: G0480

== ENCOUNTER 2018-06-12 | Emergency (ER) | payer MEDICAID | END 2018-06-12 02:12 | disposition home or self-care (01) ==

== ENCOUNTER 2018-06-18 12:09 | Emergency (ER) | payer MEDICAID ==
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
[2018-06-18] MEDS ORDERED: CHLORDIAZEPOXIDE 25MG PREPK#6 BTL TAKEHOME ONE (15:30)
[2018-06-18 16:09] VITALS: BP 127/68
== END 2018-06-18 16:01 | disposition home or self-care (01) ==
LOC: EDUNIT#
DX: F10.920 Alcohol use, unspecified with intoxication, uncomplicated (principal); F17.200 Nicotine dependence, unspecified, uncomplicated; Z59.0 Homelessness

== ENCOUNTER 2018-07-21 12:47 | Inpatient (IN) | payer MEDICAID ==
[2018-07-21] MEDS ORDERED: NS 1,000 ML IV ONE ×3 (12:51→15:00)
--- NOTE | 2018-07-21 12:51 | EDPHY ---
H & P Time Seen by Provider: 07/21/18 12:48 HPI/ROS: Chief complaint. Low blood sugar HPI. 48-year-old male here by EMS. They were called for a sick person. They found the patient have a blood sugar of 30. He received D50 W per EMS and last blood sugar check per EMS was 113. The patient tells me he has been sleeping for 4 days and has been sick with vomiting twice. He tells me he hurts all over. Unknown fever. He has been outside. No chest discomfort or shortness of breath. Generalized abdominal pain. Scrapes on his head and he reports falling. ROS 10 systems were reviewed and negative with the exception of the elements mentioned in the history of present illness Past Medical/Surgical History: Alcoholism, anxiety, PTSD, hypertension, liver failure, hypothyroid, kidney disease Social History: Single, daily smoker, no alcohol today Smoking Status: Current every day smoker Physical Exam: General Appearance: Alert well-developed male moderate distress vital signs show initial blood pressure 83/27 with heart rate 102. Unable to obtain oral or axillary temperature Eyes: Pupils equal round and reactive. There is scleral icterus. ENT, mucous membranes are dry Respiratory: There are no retractions, lungs are clear to auscultation. Cardiovascular: Regular rate and rhythm. Gastrointestinal: Abdomen is soft with generalized abdominal tenderness. Neurological: Awake and alert, sensory and motor exams grossly normal. Skin: Abrasions to forehead Musculoskeletal: Neck is supple nontender. Extremities symmetrical, full range of motion. Psychiatric: Patient is oriented X 3, there is no agitation. Constitutional: Initial Vital Signs Heart Rate 102 H 07/21/18 12:53 Respiratory Rate 22 H 07/21/18 12:53 Blood Pressure 83/27 L 07/21/18 12:53 O2 Sat (%) 100 07/21/18 12:53 O2 Delivery Mode Room Air Allergies/Adverse Reactions: No Known Allergies Allergy (Verified 07/21/18 18:29) Home Medications: Medication Instructions Recorded NK [No Known Home Meds] 06/12/18 Medical Decision Making - Diagnostics EKG Interpretation: EKG interpreted by me shows sinus tachycardia the normal interval and axis. QRS shows incomplete right bundle branch block. 1 PVC. Rate is 104 Imaging Results: Imaging Impressions Chest X-Ray 07/21/18 12:51 Impression: Peribronchial thickening with some left basilar subsegmental atelectasis, and mild chronic elevation of the right hemidiaphragm. Abdomen/Pelvis CT 07/21/18 13:18 Impression: 1. No acute fracture, ascites, or localized intra-abdominal inflammatory process. 2. Gallbladder hydrops without CT features of acute cholecystitis. 3. Cirrhosis and portosystemic collaterals unchanged. 4. Old/subacute mild L1 compression fracture new since December 2017. 5. No acute fracture or evidence of solid organ injury (limited noncontrast imaging). 6. No hydronephrosis. Findings discussed with Emergency Department physician, Kem Rodriguez on 2017, 14:40. Attention: This CT examination is specifically designed to evaluate patients who are clinically suspected of having acute obstructive uropathy. This examination does not use radiographic contrast, and as such, provides only a limited evaluation of the abdomen, pelvis and retroperitoneum. If there is further clinical suspicion for pathological conditions other than obstructive uropathy, a complete CT evaluation of the abdomen and pelvis utilizing intravenous, oral, and rectal contrast should be considered. Head CT 07/21/18 13:18 Impression: 1. No acute fracture, subdural hematoma, or acute intracranial hemorrhage. 2. No evidence of anoxic injury. Findings discussed with Emergency Department physician, Kme Rodriguez on 2017, 14:27. Noncontrast head CT is nonacute. Reviewed by me and discussed Dr. Miller Noncontrast abdomen appears nonacute. Reviewed by me and discussed with Dr. Miller Chest x-ray interpreted by me is concerning for possible left lower lobe infiltrate Procedures: Septic workup including lactate and blood cultures. IV fluids with 2 L of saline ordered. 1 was given per EMS and 1 will be given in the emergency department Rectal temperature and probable bear Hugger blanket Rectal temp is 34.7 degrees. Bear hugger blanket applied Serum lactate is 23. Severe sepsis and septic shock is declared at 1:40 p.m.. Current vital signs show heart rate 104 and blood pressure 97/53. Patient is awake and conversational ED Course/Re-evaluation: Creatinine is 2.8 so we will change the abdominal CT to non IV contrast Apparently EMS bloods were sent per and these blood samples were obtained prior to the patient being given D50 W. We will perform i-STAT in the emergency department. The patient is alert and talking At to the urge E 5:00 p.m. I-STAT shows a glucose of 34. Patient will be given D50 W. IV Levaquin I consulted discussed case Dr. Vásquez, hospitalist who agrees to the admission . The vitals currently does show a heart rate of 99 and blood pressure 93/45 Repeat lactate is 20. Repeat blood sugar is 74. current BP is 102/52 Patient continues to have low blood sugar and is treated with D50 W. Last systolic blood pressure is 108 Differential Diagnosis: Patient has hypothermia, alcohol intoxication, thrombocytopenia, jaundice, possible pneumonia. He has sepsis and was initially hypotensive. He has pancreatitis Critical Care Time: Critical care time exclusive procedures 50 min - Data Points Laboratory Results: Laboratory Results 07/21/18 12:45 07/21/18 12:45 07/21/18 07/21/18 07/21/18 14:36 13:21 13:10 WBC RBC Hgb POC Hgb 11.2 gm/dL L gm/dL (13.7-17.5) Hct POC Hct 33 % L % (40-51) MCV MCH MCHC RDW Plt Count MPV Neut % (Auto) Lymph % (Auto) Wake % (Auto) Eos % (Auto) Baso % (Auto) Nucleat RBC Rel Count Absolute Neuts (auto) Absolute Lymphs (auto) Absolute Monos (auto) Absolute Eos (auto) Absolute Basos (auto) Absolute Nucleated RBC Immature Gran % Immature Gran # Platelet Estimate Smear Review By PT INR APTT VBG Lactic Acid 23.0 mmol/L H mmol/L (0.7-2.1) POC Sodium 140 mEq/L mEq/L (135-145) Sodium POC Potassium 4.6 mEq/L mEq/L (3.3-5.0) Potassium POC Chloride 104 mEq/L mEq/L (97-110) Chloride Carbon Dioxide Anion Gap POC BUN 18 mg/dL mg/dL (7-23) BUN Creatinine POC Creatinine 2.7 mg/dL H mg/dL (0.7-1.3) Estimated GFR Glucose POC Glucose 34 mg/dL L* mg/dL (70-100) Calcium Magnesium Total Bilirubin Conjugated Bilirubin Unconjugated Bilirubin AST ALT Alkaline Phosphatase POC Troponin I 0.08 ng/mL ng/mL (0.00-0.08) Total Protein Albumin Lipase Ethyl Alcohol 07/21/18 07/21/18 07/21/18 12:45 12:45 12:30 WBC 15.33 10^3/uL H 10^3/uL (3.80-9.50) RBC 3.71 10^6/uL L 10^6/uL (4.40-6.38) Hgb 10.1 g/dL L g/dL (13.7-17.5) POC Hgb Hct 33.5 % L % (40.0-51.0) POC Hct MCV 90.3 fL fL (81.5-99.8) MCH 27.2 pg L pg (27.9-34.1) MCHC 30.1 g/dL L g/dL (32.4-36.7) RDW 20.6 % H % (11.5-15.2) Plt Count 23 10^3/uL L* 10^3/uL (150-400) MPV 10.9 fL fL (8.7-11.7) Neut % (Auto) 87.8 % H % (39.3-74.2) Lymph % (Auto) 2.4 % L % (15.0-45.0) Wake % (Auto) 7.8 % % (4.5-13.0) Eos % (Auto) 0.0 % L % (0.6-7.6) Baso % (Auto) 0.1 % L % (0.3-1.7) Nucleat RBC Rel Count 0.1 % % (0.0-0.2) Absolute Neuts (auto) 13.45 10^3/uL H 10^3/uL (1.70-6.50) Absolute Lymphs (auto) 0.37 10^3/uL L 10^3/uL (1.00-3.00) Absolute Monos (auto) 1.20 10^3/uL H 10^3/uL (0.30-0.80) Absolute Eos (auto) 0.00 10^3/uL L 10^3/uL (0.03-0.40) Absolute Basos (auto) 0.02 10^3/uL 10^3/uL (0.02-0.10) Absolute Nucleated RBC 0.02 10^3/uL H 10^3/uL (0-0.01) Immature Gran % 1.9 % H % (0.0-1.1) Immature Gran # 0.29 10^3/uL H 10^3/uL (0.00-0.10) Platelet Estimate DECREASED L (ADEQ) Smear Review By Herrera CHAVARRIA MD PT 22.6 SEC H SEC (12.0-15.0) INR 1.98 H (0.83-1.16) APTT 46.6 SEC H SEC (23.0-38.0) VBG Lactic Acid POC Sodium Sodium 146 mEq/L H mEq/L (135-145) POC Potassium Potassium 4.2 mEq/L mEq/L (3.3-5.0) POC Chloride Chloride 97 mEq/L mEq/L (97-110) Carbon Dioxide < 5 mEq/l L* mEq/l (22-31) Anion Gap TNP POC BUN BUN 17 mg/dL mg/dL (7-23) Creatinine 2.7 mg/dL H mg/dL (0.7-1.3) POC Creatinine Estimated GFR 25 Glucose < 20 mg/dL L* mg/dL (70-100) POC Glucose Calcium 8.1 mg/dL L mg/dL (8.5-10.4) Magnesium 1.9 mg/dL mg/dL (1.6-2.3) Total Bilirubin 11.4 mg/dL H mg/dL (0.1-1.4) Conjugated Bilirubin 8.3 mg/dL H mg/dL (0.0-0.5) Unconjugated Bilirubin 3.1 mg/dL H mg/dL (0.0-1.1) AST 599 IU/L H IU/L (17-59) ALT 102 IU/L H IU/L (21-72) Alkaline Phosphatase 261 IU/L H IU/L (38-126) POC Troponin I Total Protein 8.2 g/dL g/dL (6.3-8.2) Albumin 4.3 g/dL g/dL (3.5-5.0) Lipase 540 IU/L H IU/L (23-300) Ethyl Alcohol 226 mg/dL H mg/dL (0-10) Medications Given: Dextrose (Dextrose 50% Syringe) 25 gm IVP PRN PRN PRN Reason: Dry Nose Stop: 01/17/19 16:14 Last Admin: 07/21/18 16:16 Dose: 25 gm Thiamine HCl 500 mg/ Sodium (Chloride) 105 mls @ 210 mls/hr IV DAILY JAEL Stop: 07/23/18 09:29 Last Admin: 07/21/18 18:31 Dose: 105 mls Dextrose/Sodium Chloride (D5w Ns) 1,000 mls @ 150 mls/hr IV CONT JAEL Stop: 01/17/19 17:59 Last Admin: 07/21/18 18:04 Dose: 1,000 mls Lorazepam (Ativan Injection) 0 mg IVP Q1H PRN; Protocol PRN Reason: Alcohol Withdrawal w/IV access Stop: 01/17/19 17:44 Last Admin: 07/21/18 20:07 Dose: 4 mg Morphine Sulfate (Morphine) 1 - 2 mg IVP Q1HR PRN PRN Reason: Pain, Severe Unable to Take PO Stop: 07/31/18 17:50 Last Admin: 07/21/18 18:02 Dose: 2 mg Ondansetron HCl (Zofran) 4 mg IVP Q4 PRN PRN Reason: Nausea/Vomiting, Can't Take PO Stop: 01/17/19 17:50 Last Admin: 07/21/18 18:04 Dose: 4 mg Discontinued Medications Dextrose (Dextrose 50% Syringe) 25 gm IVP EDNOW ONE Stop: 07/21/18 14:49 Last Admin: 07/21/18 14:42 Dose: 25 gm Sodium Chloride (Ns) 1,000 mls @ 0 mls/hr IV EDNOW ONE; Wide Open PRN Reason: Protocol Stop: 07/21/18 12:52 Last Admin: 07/21/18 13:00 Dose: 1,000 mls Sodium Chloride (Ns) 1,000 mls @ 0 mls/hr IV EDNOW ONE; Wide Open PRN Reason: Protocol Stop: 07/21/18 13:49 Last Admin: 07/21/18 13:49 Dose: 1,000 mls Ceftriaxone Sodium/Dextrose (Rocephin 1 Gm (Premix)) 50 mls @ 100 mls/hr IV EDNOW ONE PRN Reason: Protocol Stop: 07/21/18 14:21 Last Admin: 07/21/18 14:00 Dose: 50 mls Sodium Chloride (Ns) 1,000 mls @ 0 mls/hr IV EDNOW ONE; Wide Open PRN Reason: Protocol Stop: 07/21/18 15:01 Last Admin: 07/21/18 15:00 Dose: 1,000 mls Ondansetron HCl (Zofran) 4 mg IVP EDNOW ONE Stop: 07/21/18 15:16 Last Admin: 07/21/18 15:20 Dose: 4 mg Point of Care Test Results: Chemistry 07/21/18 07/21/18 14:36 13:21 POC Sodium 140 mEq/L mEq/L (135-145) POC Potassium 4.6 mEq/L mEq/L (3.3-5.0) POC Chloride 104 mEq/L mEq/L (97-110) POC BUN 18 mg/dL mg/dL (7-23) POC Creatinine 2.7 mg/dL H mg/dL (0.7-1.3) POC Glucose 34 mg/dL L* mg/dL (70-100) POC Troponin I 0.08 ng/mL ng/mL (0.00-0.08) ISTAT H&H 07/21/18 14:36 POC Hgb 11.2 gm/dL L gm/dL (13.7-17.5) POC Hct 33 % L % (40-51) Departure - Departure Disposition: [facility] Inpatient Acute Clinical Impression: Lactic acid acidosis, Coagulopathy, Hypoglycemia Pancreatitis Qualifiers: Chronicity: acute Pancreatitis type: unspecified pancreatitis type Acute pancreatitis complication: no infection or necrosis Qualified Code(s): K85.90 - Acute pancreatitis without necrosis or infection, unspecified Pneumonia Qualifiers: Pneumonia type: due to unspecified organism Laterality: left Lung location: lower lobe of lung Qualified Code(s): J18.1 - Lobar pneumonia, unspecified organism Alcoholic intoxication Qualifiers: Complication of substance-induced condition: with unspecified complication Qualified Code(s): F10.929 - Alcohol use, unspecified with intoxication, unspecified Hypothermia Qualifiers: Encounter type: initial encounter Qualified Code(s): T68.XXXA - Hypothermia, initial encounter Condition: Critical
[2018-07-21 13:20] LABS: INR 1.98 (0.83-1.16); PROTIME(PATIENT) 22.6 SEC (12.0-15.0)
[2018-07-21 13:41] LABS: PLATELET COUNT 23 10^3/uL (150-400)
[2018-07-21] MEDS ORDERED: D50W 25 GM/50 ML SYR IVP ONE ×3 (14:39→14:48)
[2018-07-21] MEDS ORDERED: ONDANSETRON 4 MG/2 ML VIAL IVP ONE (15:15)
[2018-07-21] MEDS ORDERED: ONDANSETRON 4 MG/2 ML VIAL ONE (15:15)
--- NOTE | 2018-07-21 16:06 | ASMTCMCOM ---
CM Note CM Note Notes: Pt presented to the ED via EMS for hypoglycemia. Pt admitted for septic shock, possible PNA, hypoglycemia, hypothermia, thrombocytopenia, pancreatitis, jaundice. Pt has a history of ETOH abuse and meth abuse. Spoke with patient and he states he has been sleeping outside despite having been referred to the [facility]. Spoke w/staff at [facility] and confirmed pt has completed Coordinated Entry and was referred to [facility]. Pt is followed by Doloresa at their [facility] at the [facility]; last encounter was on 07/03/18 w/their Homeless Outreach Provider, Christal Abbasi, at the [facility] center. Pt requested that his girlfriend, Katherine Roman ([phone] or [phone]) be contacted; this CM called both numbers and neither of them are receiving calls at this time. Spoke w/[facility] staff and they say Katherine is not in their system at all. Pt also requested that his mother, Rosario Bradshaw ([phone]) be contacted; this CM called and spoke w/Rosario who lives in [place]; updated her on pt's status and provided [facility]'s main # to call for further updates; pt gives verbal permission to provide updates to Rosario and Katherine. Per past CM reports, pt has 5 adult children who live in [place], [place]. Pt was admitted 12/22-12/30/17 and was recommended DC to SNF and ULTC was initiated but pt left AMA before completed. Pt returned on 12/30/17 and was ultimately DC'd to the senior care. Pt was also admitted in 2016 and referrals were sent for SNF but pt ultimately DC'd to live w/ Katherine or at the senior care/streets. Exact DC needs TBD. CM to follow. Date Signed: 07/21/2018 03:58 PM Electronically Signed By:Jacqueline Titus RN
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
[2018-07-21] MEDS ORDERED: D50W 25 GM/50 ML SYR IVP PRN (16:15)
[2018-07-21] MEDS ORDERED: FLUMAZENIL 0.5 MG/5 ML MDV IVP PRN (17:45)
[2018-07-21] MEDS ORDERED: NS 1,000 ML IV SCH (17:45)
[2018-07-21] MEDS ORDERED: ONDANSETRON 4 MG/2 ML VIAL IVP PRN (17:51)
[2018-07-21] MEDS ORDERED: DEXMEDETOMIDINE HCL 400 MCG in NS 100 ML IV SCH (18:00)
[2018-07-21] MEDS: D5W NS 1,000 ML IV SCH (18:04)
[2018-07-21] MEDS: THIAMINE HCL 500 MG in NS 100 ML IV SCH (18:31)
[2018-07-21] MEDS: LORazepam 2 MG/ML INJ IVP PRN ×5 (18:31→23:25)
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
--- NOTE | 2018-07-21 19:46 | CPEKG ---
Test Reason : OPEN Blood Pressure : / mmHG Vent. Rate : 104 BPM Atrial Rate : 105 BPM P-R Int : 157 ms QRS Dur : 116 ms QT Int : 394 ms P-R-T Axes : -14 059 025 degrees QTc Int : 519 ms Sinus tachycardia Ventricular premature complex Incomplete right bundle branch block Abnormal inferior Q waves Confirmed by Kem Rodriguez ([id number]) on 07/21/2018 7:45:53 PM Referred By: Confirmed By:Kem Rodriguez
[2018-07-21] MEDS ORDERED: NS 500 ML IV PRN (21:45)
[2018-07-21] MEDS: DEXMEDETOMIDINE HCL 400 MCG in NS 100 ML IV SCH (21:58)
[2018-07-22] MEDS: D5W NS 1,000 ML IV SCH ×4 (01:13→22:18)
[2018-07-22 05:47] LABS: PLATELET COUNT 19 10^3/uL (150-400)
[2018-07-22] MEDS: LORazepam 2 MG/ML INJ IVP SCH ×4 (05:51→18:31)
[2018-07-22] MEDS: DEXMEDETOMIDINE HCL 400 MCG in NS 100 ML IV SCH ×2 (05:51→22:15)
[2018-07-22 06:24] LABS: CREATINE KINASE 1411 IU/L (0-224)
[2018-07-22 06:37] LABS: INR 2.6 (0.83-1.16); PROTIME(PATIENT) 27.8 SEC (12.0-15.0)
[2018-07-22] MEDS ORDERED: PROTOCOL MAGNESIUM 1 DOSE IV PRN (06:58)
[2018-07-22] MEDS ORDERED: MAGNESIUM SULF 2 GM/WATER 50 ML IV ONE (08:07)
[2018-07-22] MEDS: THIAMINE HCL 500 MG in NS 100 ML IV SCH (08:10)
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
[2018-07-22] MEDS ORDERED: PHYTONADIONE 2.5 MG/2.5 ML ORAL UDL PO ONE (09:09)
--- NOTE | 2018-07-22 10:20 | PDMN ---
Medical Necessity Medical necessity: Pt meets IP criteria per MD; est los >2 mn for eval/tx of suspected hypovolemic shock w/critical anion gap metabolic acidosis ( multifactorial w/lactic acidosis, starvation & alcoholic ketoacidosis), hepatic & acute renal failure, hypoglycemia, hypothermia & hypotension; pt critically ill; admit to ICU for close monitoring, follow-up labs, aggressive IVFs, D5 drip & CIWA protocol (Precedex as needed); comorbid alcoholism, alcohol cirrhosis, homelessness & untreated hypothyroidism; per H&P & order 07/21/18
--- NOTE | 2018-07-22 11:38 | GCON ---
MARKETING COMMUNICATIONS ASSOCIATE CONSULTATION REASON FOR ADMISSION: Patient found down, alcoholism, metabolic acidosis, cirrhosis. The patient is a 48-year-old white male with extensive past medical history including alcoholism, alc oholic cirrhosis, hypothyroidism. He has had frequent admissions to the hospital for alcohol and alc ohol withdrawals. He drinks approximately half a gallon of vodka per day. He was found down by dejon watson. EMS brought him to our emergency room. He was admitted to the intensive Care Unit and placed on CIWA protocol. Currently, he is sedated. All history is gleaned from the medical record. REVIEW OF SYSTEMS: A 10-point review of systems is performed and negative except for what is listed in HPI. PAST MEDICAL HISTORY: Significant for alcoholism, alcoholic cirrhosis, hypothyroidism, frequent admi ssions for alcohol withdrawals. ALLERGIES: None known to medications. FAMILY HISTORY: Noncontributory. SOCIAL HISTORY: Drinks approximately a half gallon of vodka per day. He is a previous smoker but no thing currently. He is homeless. He has family who live in [place]. PHYSICAL EXAM: VITAL SIGNS: Blood pressure 106/59, pulse 90, respirations 29, temperature is 37.4, oxygen saturation 90% on 3 L. GENERAL: He is a thin 48-year-old male who is sedated and somewhat wi th altered mental status. HEENT: Eyes PERRL, EOMI. Throat shows no erythema or tonsillar hypertrop hy. NECK: Supple. There is no cervical adenopathy. HEART: Regular rate and rhythm without murmur s, rubs, or gallops. LUNGS: Diminished breath sounds but no wheeze. ABDOMEN: Soft, nontender. Anderson wel sounds present in all 4 quadrants. EXTREMITIES: No clubbing, cyanosis, or edema. LABORATORIES: White count is 8.6, hemoglobin 7.8, hematocrit 24, platelet count is 19. INR is 2.6. Sodium 140, potassium 5.2, chloride 109, CO2 is 15, BUN 24, creatinine 2.9, glucose is 151. AST and ALT are markedly elevated. Ammonia level is 103. Alcohol level on presentation is 226. Arterial b lood gas: pH 7.27, pCO2 of 12, PO2 of 90, bicarb is 6, oxygen saturation 93%. IMPRESSION: 1. Alcoholism. 2. Alcohol withdrawals. 3. Hepatic encephalopathy. 4. Cirrhosis of the liver. 5. Pancytopenia with severe thrombocytopenia. 6. Metabolic acidosis. 7. Hypovolemia causing hypotension. 8. Acute renal failure. RECOMMENDATIONS: 1. Agree with [facility] protocol. 2. Consider palliative care. 3. We will get in touch with the patient's family in [place]. 4. Prognosis is grim for meaningful recovery. /[id number]/MODL
[2018-07-22] MEDS: LACTULOSE 20 GM/30 ML UDCUP PO SCH ×2 (16:27→22:16)
[2018-07-23] MEDS: LORazepam 2 MG/ML INJ IVP SCH ×2 (00:41→05:35)
[2018-07-23] MEDS: D5W NS 1,000 ML IV SCH (04:40)
[2018-07-23 04:56] LABS: INR 2.58 (0.83-1.16); PROTIME(PATIENT) 27.6 SEC (12.0-15.0)
[2018-07-23 04:57] LABS: PLATELET COUNT 17 10^3/uL (150-400)
[2018-07-23] MEDS ORDERED: POTASSIUM Cl (KCl) 10 MEQ in D5W 1/2 NS 1,000 ML IV SCH (07:00)
[2018-07-23] MEDS: THIAMINE HCL 500 MG in NS 100 ML IV SCH (07:34)
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
[2018-07-23] MEDS ORDERED: FUROSEMIDE 40 MG/4 ML VIAL IVP ONE (09:15)
[2018-07-23] MEDS: LACTULOSE 20 GM/30 ML UDCUP PO SCH ×2 (09:28→16:38)
[2018-07-23] MEDS: PHYTONADIONE 2.5 MG/2.5 ML ORAL UDL PO SCH (09:28)
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
[2018-07-23] MEDS: ACETAMINOPHEN 650 MG SUPP PR PRN (12:11)
[2018-07-23] MEDS ORDERED: ORAL BALANCE GEL TUBE PO PRN (12:24)
[2018-07-24 05:35] LABS: PLATELET COUNT 19 10^3/uL (150-400)
[2018-07-24 05:38] LABS: INR 2.32 (0.83-1.16); PROTIME(PATIENT) 25.5 SEC (12.0-15.0)
[2018-07-24] MEDS: LACTULOSE 20 GM/30 ML UDCUP PO SCH ×2 (06:52→09:26)
[2018-07-24] MEDS ORDERED: MAGNESIUM SULF 1 GM/DEXTROSE 100 ML IV ONE (08:34)
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
[2018-07-24] MEDS ORDERED: THIAMINE HCL 100 MG TAB PO SCH (09:00)
[2018-07-24] MEDS ORDERED: PROTOCOL POTASSIUM 1 DOSE MISC PRN (09:16)
[2018-07-24] MEDS: PHYTONADIONE 2.5 MG/2.5 ML ORAL UDL PO SCH (09:26)
[2018-07-24] MEDS ORDERED: THIAMINE HCL 100 MG in NS 100 ML IV SCH (10:30)
[2018-07-24] MEDS ORDERED: POTASSIUM Cl (KCl) 100 ML IV SCH (12:28)
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
[2018-07-24] MEDS ORDERED: GLYCOPYRROLATE 0.2 MG/1 ML VIAL IVP PRN (14:58)
[2018-07-24] MEDS: LORazepam 2 MG/ML INJ IVP PRN ×2 (15:56→21:18)
--- NOTE | 2018-07-24 16:26 | ASMTCMCOM ---
CM Note CM Note Notes: Met today with patient's good friend, Alex Roman [phone]. Dr Bray was unable to reach Alex on Tuesday but was able to speak with patient's mother, Rosraio and his brother Kacie. Rosario felt Kacie would make the best Med Proxy Decision Maker for Barrie. Myles Crews and this CM asked Alex today if she felt the same. Alex agreed that Kacie should be Med Proxy. Alex said that she had been in contact with Barrie's family regarding Barrie for the last 3 years and was familar with them. A Medical Proxy document was completed and placed at the front of his chart. There was a Palliative Care Mtg See "Notes". Family has made Barrie Comfort Care at this time. Date Signed: 07/24/2018 04:25 PM Electronically Signed By:Charity Lunsford LCSW
[2018-07-24] MEDS: ACETAMINOPHEN 650 MG SUPP PR PRN (16:46)
[2018-07-25] MEDS: LORazepam 2 MG/ML INJ IVP PRN ×2 (06:12→08:07)
[2018-07-25] MEDS: ACETAMINOPHEN 650 MG SUPP PR PRN (06:12)
[2018-07-25 08:21] VITALS: BP 61/32
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
--- NOTE | 2018-07-25 17:23 | ASMTCMCOM ---
CM Note CM Note Notes: The patient this morning. This CM received a call from Kacie Bradshaw, son of patient. He wanted to apply to the [facility] for assist with cremation. This CM faxed Kacie the [facility] application, the mortuaries that worked with the [facility] and the time frame that patient's body could stay in out morgue. Kacie completed the application and faxed it back to me. I forwarded it to the [facility] . Date Signed: 07/25/2018 05:22 PM Electronically Signed By:Charity Lunsford LCSW
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
[2018-07-26] MEDS ORDERED: LORazepam 2 MG/ML INJ IVP SCH (09:00)
== END 2018-07-25 12:01 | disposition expired | DRG 720 ==
LOC: EDUNIT# → F2N 16:40 → F3E 07-24 18:17
PROVIDERS: ADMIT Internal Medicine; ATTEND Internal Medicine
DX: A41.9 Sepsis, unspecified organism (principal); K72.00 Acute and subacute hepatic failure without coma; G93.49 Other encephalopathy; E87.2 Acidosis; D69.59 Other secondary thrombocytopenia; N17.9 Acute kidney failure, unspecified; T68.XXXA Hypothermia, initial encounter; F10.229 Alcohol dependence with intoxication, unspecified; Y90.7 Blood alcohol level of 200-239 mg/100 ml; E16.2 Hypoglycemia, unspecified; E86.9 Volume depletion, unspecified; Z59.0 Homelessness; Z51.5 Encounter for palliative care
CPT/HCPCS: 82435-PO; 82565-PO; 82947-PO; 84132-PO; 84295-PO; 84481-90; 84484-PO; 84520-PO; 85014-PO; 96365; G0480; J0696; J1940; J2060; J2270; J2405; J3411; J3475; J3480